=== PATIENT | female | born 1945 | race Caucasian/White ===

== ENCOUNTER → 2018-12-16 08:52 | Outpatient (CLI) | payer MEDICARE, SELFPAY ==
--- NOTE | 2018-12-16 08:57 | CA_ITS ---
APPROVED REPORT EXAM: Comprehensive 2D, Doppler, and color-flow Echocardiogram Geospatial Developer: Monica Sandoval RDCS Ht: 5 ft 3 in Wt: 161lbs BSA: 1.76 BP: 110/80 mmHg Indications: Congestive Heart Failure, COPD, Murmur, Shortness of Breath, Dyspnea, Hypertension/HDD 2D Dimensions LVOT 1.70 cm (M/F) 1.5-2.5 M-Mode Dimensions RVDd 2.30 cm (0.9-2.6) LA Diam 4.00 cm (1.9-4.0) LVDd 5.60 cm (3.5-5.7) Ao Diam 2.70 cm (2.0-3.7) LVDs 3.80 cm (3.5-5.7) AV Cusp 1.00 cm (1.5-2.6) IVSd 0.80 cm (0.6-1.1) PWd 0.80 cm (0.6-1.1) EF (Teich) 59.70% FS 32.10% EDV (Teich) 154.00 mL ESV (Teich) 62.00 mL LV Diastology E/A Ratio 1.6 MED E' 6.24 (< 7 cm/sec) E'/MED E' Ratio 17.00 (>14) LAT E' 5.95 (<10 cm/sec) E/LAT E' Ratio 17.80 (>14) Aortic Valve LVOT Max 128.00 (70-110 cm/s) LVOT VTI 33.50 cm AoV Peak Aayush. 332.00 (50-130 cm/s) AO Peak GR. 44.00 mmHg AO Mean GR. 24.00 (<5 mmHg) AO VTI 84.50 (18-25 cm) ROXI (VTI) 0.90 (2.5-4.5 cm2) Mitral Valve MV E Max Aayush. 106.00 (40-130 cm/s) MV A Velocity 67.60 (40-130 cm/s) E/A Ratio 1.60 Tricuspid Valve TR P. Velocity 299.00 cm/s RAP Estimate 10.00 mmHg RVSP 46.00 mmHg Left Ventricle Left atrium is mildly enlarged, left ventricle is normal size, mild concentric left ventricular hypertrophy, visually estimated ejection fraction 55% with no regional wall motion abnormality, grade 2 diastolic dysfunction seen with tissue Doppler evidence of raise left atrial pressure. Right Ventricle Right atrium and right ventricular mildly enlarged with normal contractility. Aortic Valve The aortic valve is thickened and calcified with severe restriction to leaflet mobility, mean gradient across aortic valve is 24 mmHg, calculated valve area is 0.8 cm??? represents severe aortic stenosis, there is no aortic insufficiency. Mitral Valve Mitral valve has mitral annular calcification, which extends in both anterior and posterior mitral leaflet, there is no mitral stenosis, there is mild mitral regurgitation. Tricuspid Valve Tricuspid valve is grossly normal, there is mild tricuspid regurgitation, calculated right ventricular systolic pressure is 57 mmHg consistent with moderate pulmonary hypertension. Pulmonic Valve Pulmonic valve is poorly visualized. Great Vessels Aortic root is normal size. Pericardium No significant pericardial effusion noted. Conclusion 1. Enlarged left atrium, normal left ventricular size, mild concentric left ventricular hypertrophy, visually estimated ejection fraction 55% with no regional wall motion abnormality. Grade 2 diastolic dysfunction seen with tissue Doppler evidence of raise left atrial pressure. 2. Mildly enlarged right ventricle with normal contractility. 3. Thickened and calcified aortic valve with severe restriction to leaflet mobility, mean gradient across aortic valve is 24 mmHg, however the valve area is 0.8 cm??? represents severe aortic stenosis. There is no aortic insufficiency. 4. Mild mitral and tricuspid regurgitation, calculated right ventricular systolic pressure is 57 mmHg consistent with moderately elevated right ventricular systolic pressure. 5. No significant pericardial effusion noted, inferior vena cava is not well-visualized. Electronically signed by : Terrance Orellana, 12/17/2018 06:28:42
== END ==
PROVIDERS: PCP Family Medicine; Visit Provider Family Medicine
DX: I38 Endocarditis, valve unspecified (principal)
CPT/HCPCS: 93306

== ENCOUNTER → 2019-01-13 12:50 | Outpatient (CLI) | payer MEDICARE, SELFPAY ==
--- NOTE | 2019-01-13 12:52 | CA_ITS ---
APPROVED REPORT Foam Fabricator: CT Laterality: Bilateral Study Quality: Fair Indications: michele stenosis Doppler Spectral Velocity Analysis ECA (R) 192.70/14.00 cm/s ECA (L) 102.70/7.70 cm/s dICA (R) 78.60/21.70 cm/s dICA (L) 105.30/28.30 cm/s Cyndi (R) 143.10/25.70 cm/s Cyndi (L) 79.10/15.00 cm/s pICA (R) 78.30/19.70 cm/s pICA (L) 80.30/14.10 cm/s dCCA (R) 58.20/9.00 cm/s dCCA (L) 69.50/14.40 cm/s pCCA (R) 65.80/13.40 cm/s pCCA (L) 75.40/12.80 cm/s Vert (R) 55.50/9.60 cm/s Vert (L) 35.90/35.90 cm/s Findings Duplex evaluation demonstrates stenosis of the right proximal internal carotid artery in the range of 50-69% with PSV =140 cm/sec, EDV <100 cm/sec, and IC/CC Ratio <4.0. Duplex evaluation demonstrates stenosis of the left proximal internal carotid artery in the range of 20-49% with PSV <140 cm/sec, EDV <100 cm/sec, and IC/CC Ratio <4.0. Duplex evaluation demonstrates antegrade flow of the bilateral Vertebral Arteries. Due to heavy acoustic shadowing, higher percent stenosis cannot be ruled out. Suggests further testing. Conclusion Duplex evaluation demonstrates stenosis of the right proximal internal carotid artery in the range of 50-69% with PSV =140 cm/sec, EDV <100 cm/sec, and IC/CC Ratio <4.0. Duplex evaluation demonstrates stenosis of the left proximal internal carotid artery in the range of 20-49% with PSV <140 cm/sec, EDV <100 cm/sec, and IC/CC Ratio <4.0. Duplex evaluation demonstrates antegrade flow of the bilateral Vertebral Arteries. Due to heavy acoustic shadowing, higher percent stenosis cannot be ruled out. Consider CTA for further evaluation Electronically signed by : Dmitry Martinez MD 01/13/2019 18:47:17
== END ==
PROVIDERS: PCP Family Medicine; Visit Provider Family Medicine
DX: I65.23 Occlusion and stenosis of bilateral carotid arteries (principal)
CPT/HCPCS: 93880

== ENCOUNTER → 2019-05-01 10:10 | Outpatient (CLI) | payer MEDICARE, SELFPAY ==
[2019-05-01 10:49] LABS: Basophils # 0.1 K/mm3 (0-0.2); Basophils % 0.7 % (0.1-2.0); Eosinophils # 0.2 K/mm3 (0.0-0.4); Eosinophils % 2.9 % (0.1-12.0); Hematocrit 30.9 % (37.0-47.0); Lymphocytes # 1.5 K/mm3 (0.7-4.5); Lymphocytes % 18.9 % (10-50); Mean Corpuscular Hemoglobin 25.3 pg (27.0-31.2); Mean Corpuscular Volume 87.2 fl (81-99); Monocytes # 0.5 K/mm3 (0.1-1.0); Monocytes % 5.9 % (1.7-9.3); Neutrophils # 5.5 K/mm3 (1.8-7.8); Neutrophils % 71.7 % (37.0-80.0); Platelet Count 219 K/mm3 (142-424); Red Blood Count 3.55 M/mm3 (4.20-5.40); Red Cell Distribution Width 16.9 % (11.5-17.5); White Blood Count 7.7 K/mm3 (4.8-10.8)
[2019-05-01 11:34] LABS: Chloride 103 mmol/L (98-107); Sodium 140 mmol/L (136-145)
[2019-05-01 11:37] LABS: Blood Urea Nitrogen 16 mg/dl (7-17)
[2019-05-01 11:38] LABS: Calcium 9.2 mg/dl (8.4-10.2); Carbon Dioxide 30 mmol/L (22.0-30.0); Estimated Glomerular Filt Rate 37 ml/min (>60); GFR (African American) 44 ML/MIN (>60); Glucose 90 mg/dl (74-100)
[2019-05-01 13:08] LABS: NT Pro Brain Natriuretic Pep. 924 pg/mL (0-450)
== END ==
PROVIDERS: Visit Provider Internal Medicine Cardiovascular Disease
DX: R06.00 Dyspnea, unspecified (principal); I35.0 Nonrheumatic aortic (valve) stenosis; E78.5 Hyperlipidemia, unspecified; I27.20 Pulmonary hypertension, unspecified; I65.29 Occlusion and stenosis of unspecified carotid artery; R60.0 Localized edema
CPT/HCPCS: 36415; 80048; 83880; 85025

== ENCOUNTER 2019-05-29 10:57 | Inpatient (IN) ==
[2019-05-29 12:04] LABS: Anion Gap 14.8 mEq/L (5-15); Blood Urea Nitrogen 59 mg/dl (7-17); Calcium 10.2 mg/dl (8.4-10.2); Carbon Dioxide 21 mmol/L (22.0-30.0); Chloride 105 mmol/L (98-107); Glucose 107 mg/dl (74-100); Sodium 135 mmol/L (136-145)
[2019-05-29 12:08] LABS: Basophils # 0.1 K/mm3 (0-0.2); Basophils % 0.6 % (0.1-2.0); Eosinophils # 0.2 K/mm3 (0.0-0.4); Eosinophils % 1.9 % (0.1-12.0); Hematocrit 30.2 % (37.0-47.0); Hemoglobin 9.1 g/dL (12.2-16.2); Lymphocytes # 1.6 K/mm3 (0.7-4.5); Lymphocytes % 16.3 % (10-50); Mean Corpuscular HGB Conc 30.2 g/dL (31.8-35.4); Mean Corpuscular Volume 84.4 fl (81-99); Mean Platelet Volume 9.6 fl (7.4-10.4); Monocytes # 0.6 K/mm3 (0.1-1.0); Monocytes % 5.7 % (1.7-9.3); Neutrophils # 7.3 K/mm3 (1.8-7.8); Neutrophils % 75.6 % (37.0-80.0); Platelet Count 306 K/mm3 (142-424); Red Blood Count 3.58 M/mm3 (4.20-5.40); Red Cell Distribution Width 15.4 % (11.5-17.5); White Blood Count 9.7 K/mm3 (4.8-10.8)
--- NOTE | 2019-05-29 14:26 | History & Physical Report ---
*Admission Date: 05/29/19 <Shellie Whiting 05/29/19 14:47> *Chief complaint: weakness, hallucinations <Shellie Whiting 05/29/19 14:47> *History of present illness: Ms. Bedoya is a 74-year-old female with a history of CHF, pulmonary hypertension, aortic stenosis, hypertension, COPD, chronic kidney disease, hyperlipidemia, seizures, and anemia. She presented to the office of [facility] today with complaints of feeling weak and fatigued. Her family stated she had been having hallucinations at home and they were worried about her. She has been seen recently by the hair worker and was started on spironolactone along with her Lasix for heart failure. She had labs done today and was instructed to see her PCP. Her blood pressure was normal in the office and her oxygen was 95% on 3 L of oxygen. Lab work revealed a BUN of 59 and a creatinine of 3. Her BNP was elevated at 992. Her sodium was low and her potassium was elevated. She was admitted for acute kidney injury and dehydration. She will have an infection work-up. <Shellie Whiting 05/29/19 14:47> [facility] History I have reviewed the patient's past medical history: Yes <Shellie Whiting 05/29/19 14:47> Medical History: Reports:: Cancer, Carotid Stenosis, Congestive Heart Failure (with pulmonary hypertension), Chronic Obstructive Pulmonary Disease (COPD), Depression, Heart Murmur (aortic stenosis), Home Oxygen, Hyperlipidemia, Hypertension, Pulmonary Embolism ( last occurrence 1999.), Renal Disease, Seizures <Shellie Whiting 05/29/19 14:47> *Have you ever received a pneumonia vaccine?: No <Shellie Whiting 05/29/19 14:47> *Have you received a flu vaccine this season?: No <Shellie Whiting 05/29/19 14:47> Other Medical History: Reports: Anemia, Arthritis, Hypothyroidism, Thyroid Disease <Shellie Whiting 05/29/19 14:47> Laterality Cases: Bilateral: Mastectomy <Shellie Whiting 05/29/19 14:47> Other Surgeries: Yes: Cancer Surgery <Shellie Whiting 05/29/19 14:47> - *Social History Smoking Status: Former smoker <Shellie Whiting - 05/29/19 14:47> #Yrs smoked (if former smoker): 45 <Shellie Whiting 05/29/19 14:47> [facility] Intake: never [facility] 14:47> Substance Use Type: denies use <[facility] 05/29/19 14:47> *Occupational Status:: other <Shellie Whiting 05/29/19 14:47> Household Members: none <[facility] 05/[facility] 14:47> *Travel in the last 8 weeks: None <Shellie Whiting 05/29/19 14:47> Family Hx:: Cancer, Coronary Artery Disease, Diabetes, Heart Attack <[facility] 05/[facility] 14:47> Review of Systems - Constitutional Reports fatigue, Reports lack of energy, Reports weakness, Denies chills, Denies fever(s) <IssaveroShellie - 05/29/19 14:47> - Eyes Denies blurry vision, Denies double vision [facility] 14[facility]47> - ENT Reports sore throat, Denies nasal congestion [facility] 14:47> - *Cardiovascular Reports shortness of breath, Denies chest pain [facility] 14:47> - *Respiratory Reports shortness of breath, Denies cough [facility]47[facility] - *Gastrointestinal Reports loose stools, Denies abdominal pain, Denies nausea, Denies vomiting <JohanneShellie - 05/29/19 14:47> - *Genitourinary Denies difficulty urinating, Denies painful urination [facility] 14:47> - *Musculoskeletal Denies joint pain [facility] 14:47> - *Neurologic Reports confusion, Reports weakness <[facility] 14:47> Meds Home Medications Medication Instructions Recorded Confirmed Type Clopidogrel Bisulfate [Plavix 75mg 75 mg PO DAILY 01/20/19 05/29/19 History Tab] Doxazosin Mesylate [Cardura 4mg 4 mg PO DAILY 01/20/19 05/29/19 History tablet] buPROPion HCL [Bupropion Xl] 300 mg PO DAILY 01/20/19 05/29/19 History lisinopriL [Lisinopril 40mg Tablet] 40 mg PO DAILY 01/20/19 05/29/19 History ferrous sulfate 325 mg (65 mg 325 mg PO DAILY 04/24/19 05/29/19 History iron) tablet gabapentin 100 mg capsule 100 mg PO TID cap 04/24/19 05/29/19 History levothyroxine 88 mcg tablet 88 mcg PO DAILY 04/24/19 05/29/19 History mecobalamin (vitamin B12) 1,000 1 mcg PO DAILY 04/24/19 05/29/19 History mcg chewable tablet methocarbamol 750 mg tablet 750 mg PO QID 04/24/19 05/29/19 History metoprolol succinate 100 mg 100 mg PO DAILY 04/24/19 05/29/19 History tablet,extended release 24 hr sertraline 100 mg tablet 100 mg PO DAILY 04/24/19 05/29/19 History aspirin 81 mg tablet,delayed 81 mg PO DAILY 05/01/19 05/29/19 History release Ostomy Software Developer Intern [Enema Bag with 1 each [facility] WEEKLY #4 bag 05/11/19 05/29/19 Rx Catheter] Psyllium Husk/Aspartame [Metamucil 10 gm PO DAILY #14 powd.pack 05/11/19 Rx Fiber Singles Packet] polyethylene glycoL 3350 [Miralax 17 gm PO DAILYP PRN #14 packet 05/11/19 05/29/19 Rx 17gm Packet] <Xavier Abbott - 05/29/19 15:18> Allergies Allergy/AdvReac Type Severity Reaction Status Date / Time No Known Allergies Allergy Verified 05/29/19 11:30 <Xavier Abbott - 05/29/19 15:18> Exam Vital signs and Labs for Last 24 Hours: Laboratory Results - last 24 hr 05/29/19 11:00: Sodium 135 L, Potassium 5.8 H, Chloride 105, Carbon Dioxide 21 L , Anion Gap 14.8, BUN 59 H, Creatinine 3.00 H, Estimated GFR 15 L*, Est GFR ( Amer) 18 L*, Glucose 107 H, Calcium 10.2, NT-Pro-B Natriuret Pep 992 H 05/29/19 11:02: WBC 9.7, RBC 3.58 L, Hgb 9.1 L, Hct 30.2 L, MCV 84.4, MCH 25.5 L , MCHC 30.2 L, RDW 15.4, Plt Count 306, MPV 9.6, Neut % (Auto) 75.6, Lymph % (Auto) 16.3, [place] % (Auto) 5.7, Eos % (Auto) 1.9, Baso % (Auto) 0.6, Neut # (Auto) 7.3, Lymph # (Auto) 1.6, [place] # (Auto) 0.6, Eos # (Auto) 0.2, Baso # (Auto) 0.1 05/29/19 11:02: TSH 3.02 <Xavier Abbott - 05/29/19 15:18> Laboratory Results - last 24 hr 05/29/19 11:00: Sodium 135 L, Potassium 5.8 H, Chloride 105, Carbon Dioxide 21 L , Anion Gap 14.8, BUN 59 H, Creatinine 3.00 H, Estimated GFR 15 L*, Est GFR ( Amer) 18 L*, Glucose 107 H, Calcium 10.2, NT-Pro-B Natriuret Pep 992 H 05/29/19 11:02: WBC 9.7, RBC 3.58 L, Hgb 9.1 L, Hct 30.2 L, MCV 84.4, MCH 25.5 L , MCHC 30.2 L, RDW 15.4, Plt Count 306, MPV 9.6, Neut % (Auto) 75.6, Lymph % (Auto) 16.3, [place] % (Auto) 5.7, Eos % (Auto) 1.9, Baso % (Auto) 0.6, Neut # (Auto) 7.3, Lymph # (Auto) 1.6, [place] # (Auto) 0.6, Eos # (Auto) 0.2, Baso # (Auto) 0.1 05/29/19 11:02: TSH 3.02 <Shellie Whiting - 05/29/19 14:47> I & O for Last 24 hours: Intake & Output 03/1605/27/19 05/28/19 05/29/19 23:59 23:59 23:59 23:59 Weight 161 lb 5 oz <Xavier Abbott 05/29/19 15:18> - Constitutional no acute distress (mildly confused) <Shellie Whiting 05/29/19 14:47> - *Routine HEENT Exam Head: Present: normocephalic <Shellie Whiting 05/29/19 14:47> Eye: Present: EOMI, PERRL <Shellie Whiting 05/29/19 14:47> ENT: Present: mucous membranes dry <Shellie Whiting 05/29/19 14:47> - *Routine Neck Exam Present: supple. Absent: lymphadenopathy <Shellie Whiting 05/29/19 14:47> - *Routine Respiratory Exam Present: decreased breath sounds, CTA bilaterally <Shellie Whiting 05/29/19 14:47> - *Routine Cardiovascular Exam Present: RRR, murmur <Shellie Whiting 05/29/19 14:47> - *Routine Abdominal Exam Present: soft, normoactive bowel sounds. Absent: tenderness <Shellie Whiting 05/29/19 14:47> - *Routine Extremities Exam Absent: cyanosis, clubbing, edema <Shellie Whiting 05/29/19 14:47> - *Routine Skin Exam Present: warm. Absent: rash <Shellie Whiting 05/29/19 14:47> - *Routine Neurological Exam Present: alert, oriented X3 <Shellie Whiting 05/29/19 14:47> Assessment and Plan (1) Acute kidney injury Current visit: Yes Status: Acute Category: Medical Code(s): N17.9 - Acute kidney failure, unspecified (2) Dehydration Current visit: Yes Status: Acute Category: Medical Code(s): E86.0 - Dehydration (3) Hallucinations Current visit: Yes Status: Acute Category: Medical Code(s): R44.3 - Hallucinations, unspecified (4) Aortic stenosis Current visit: Yes Status: Chronic Category: Medical Code(s): I35.0 - Nonrheumatic aortic (valve) stenosis (5) Chronic renal impairment Current visit: Yes Status: Chronic Category: Medical Code(s): N18.9 - Chronic kidney disease, unspecified (6) Anemia Current visit: Yes Status: Chronic Category: Medical Code(s): D64.9 - Anemia, unspecified (7) COPD (chronic obstructive pulmonary disease) Current visit: Yes Status: Chronic Category: Medical Code(s): J44.9 - Chronic obstructive pulmonary disease, unspecified (8) Diastolic congestive heart failure Current visit: No Status: Chronic Qualifiers: Heart failure chronicity: unspecified Qualified Code(s): I50.30 - Unspecified diastolic (congestive) heart failure Category: Medical Code(s): I50.30 - Unspecified diastolic (congestive) heart failure (9) Former smoker Current visit: No Status: Chronic Category: Social Hx Code(s): Z87.891 - Personal history of nicotine dependence (10) HLD (hyperlipidemia) Current visit: No Status: Chronic Qualifiers: Hyperlipidemia type: mixed hyperlipidemia Qualified Code(s): E78.2 - Mixed hyperlipidemia Category: Medical Code(s): E78.5 - Hyperlipidemia, unspecified (11) HTN (hypertension) Current visit: No Status: Chronic Qualifiers: Hypertension type: essential hypertension Qualified Code(s): I10 - Essential (primary) hypertension Category: Medical Code(s): I10 - Essential (primary) hypertension (12) History of breast cancer Current visit: No Status: Chronic Category: Medical Code(s): Z85.3 - Personal history of malignant neoplasm of breast (13) Hx of thyroid disease Current visit: No Status: Chronic Category: Medical Code(s): Z86.39 - Personal history of other endocrine, nutritional and metabolic disease (14) Pulmonary HTN Current visit: No Status: Chronic Category: Medical Code(s): I27.20 - Pulmonary hypertension, unspecified <Xavier Abbott - 05/29/19 15:18> (1) Acute kidney injury Current visit: Yes Status: Acute Category: Medical Code(s): N17.9 - Acute kidney failure, unspecified (2) Dehydration Current visit: Yes Status: Acute Category: Medical Code(s): E86.0 - Dehydration (3) Hallucinations Current visit: Yes Status: Acute Category: Medical Code(s): R44.3 - Hallucinations, unspecified (4) Aortic stenosis Current visit: Yes Status: Chronic Category: Medical Code(s): I35.0 - Nonrheumatic aortic (valve) stenosis (5) Chronic renal impairment Current visit: Yes Status: Chronic Category: Medical Code(s): N18.9 - Chronic kidney disease, unspecified (6) Anemia Current visit: Yes Status: Chronic Category: Medical Code(s): D64.9 - Anemia, unspecified (7) COPD (chronic obstructive pulmonary disease) Current visit: Yes Status: Chronic Category: Medical Code(s): J44.9 - Chronic obstructive pulmonary disease, unspecified (8) Diastolic congestive heart failure Current visit: No Status: Chronic Qualifiers: Heart failure chronicity: unspecified Qualified Code(s): I50.30 - Unspecified diastolic (congestive) heart failure Category: Medical Code(s): I50.30 - Unspecified diastolic (congestive) heart failure (9) Former smoker Current visit: No Status: Chronic Category: Social Hx Code(s): Z87.891 - Personal history of nicotine dependence (10) HLD (hyperlipidemia) Current visit: No Status: Chronic Qualifiers: Hyperlipidemia type: mixed hyperlipidemia Qualified Code(s): E78.2 - Mixed hyperlipidemia Category: Medical Code(s): E78.5 - Hyperlipidemia, unspecified (11) HTN (hypertension) Current visit: No Status: Chronic Qualifiers: Hypertension type: essential hypertension Qualified Code(s): I10 - Essential (primary) hypertension Category: Medical Code(s): I10 - Essential (primary) hypertension (12) History of breast cancer Current visit: No Status: Chronic Category: Medical Code(s): Z85.3 - Personal history of malignant neoplasm of breast (13) Hx of thyroid disease Current visit: No Status: Chronic Category: Medical Code(s): Z86.39 - Personal history of other endocrine, nutritional and metabolic disease (14) Pulmonary HTN Current visit: No Status: Chronic Category: Medical Code(s): I27.20 - Pulmonary hypertension, unspecified <Shellie Whiting - 05/29/19 14:23> - Assessment and plan all Dx Assessment and Plan for all problems:: Saw patient, agree with above note. <Xavier Abbott - 05/29/19 15:18> Will admit and start on IVF's. Will get a CXR, further labs, a U/A, and blood cultures. <Shellie Whiting - 05/29/19 14:47>
[2019-05-29 15:07] LABS: Microscopic, Urine URINE MICROSCOPIC (MICROSCOPIC)
[2019-05-29 15:37] LABS: Appearance,Urine CLEAR (Clear); Bilirubin,Urine Negative (Negative); Blood, Urine 2+ (Negative); Color,Urine YELLOW (Yellow); Glucose,Urine (UA) Negative (Negative); Ketones,Urine Negative (Negative); Leukocyte Esterase,Urine 3+ (Negative); Protein,Urine TRACE (Negative); Specific Gravity, Urine 1.015 (1.005-1.030); Urobilinogen,Urine 0.2 EU/dl (0.2)
--- NOTE | 2019-05-29 15:52 | Pharmacy Consult Notes ---
[facility] Pharmacy VTE Monitoring - Patient Demographics Admission date: 05/29/19 Report Date: 05/29/19 Time: 15:52 Allergies/Adverse Reactions: Patient Allergies No Known Allergies Allergy (Verified 05/29/19 11:30) Height: 1.6 m Weight: 73.17 kg Patient Problems: Current Active Problems Acute kidney injury (Acute) Dehydration (Acute) Aortic stenosis (Chronic) Chronic renal impairment (Chronic) Anemia (Chronic) COPD (chronic obstructive pulmonary disease) (Chronic) Hallucinations (Acute) - VTE Risk Labs: VTE Related Lab Results Hgb 9.1 g/dL (12.2-16.2) L 05/29/19 11:02 Hct 30.2 % (37.0-47.0) L 05/29/19 11:02 Plt Count 306 K/mm3 (142-424) 05/29/19 11:02 BUN 59 mg/dl (7-17) H 05/29/19 11:00 Creatinine 3.00 mg/dl (0.52-1.04) H 05/29/19 11:00 Was VTE Risk Assessment Performed: Yes VTE Score: 11 VTE Risk Level: Moderate Risk - Prophylaxis VTE Prophylaxis Ordered?: Yes Types of VTE Prophylaxis: TEDS Knee High Location of Applied Device: Bilateral Lower Extremeties - VTE Diagnosis Confirmed Treatment or plan recommended: Continue Current Treatment
[2019-05-29 17:47] LABS: Amorphous Sediment,Urine 2+ /lpf; Squamous Epithelial Cell,Urine 20-50 #/hpf (0-5); WBC,Urine TNTC #/hpf (0-3)
[2019-05-30 06:14] LABS: Basophils % 0.4 % (0.1-2.0); Eosinophils # 0.1 K/mm3 (0.0-0.4); Eosinophils % 1.1 % (0.1-12.0); Lymphocytes % 10.1 % (10-50); Mean Corpuscular HGB Conc 29.9 g/dL (31.8-35.4); Mean Corpuscular Volume 84.7 fl (81-99); Mean Platelet Volume 9.2 fl (7.4-10.4); Monocytes # 0.6 K/mm3 (0.1-1.0); Monocytes % 5.5 % (1.7-9.3); Neutrophils # 8.5 K/mm3 (1.8-7.8); Neutrophils % 82.8 % (37.0-80.0); Platelet Count 271 K/mm3 (142-424); Red Blood Count 3.55 M/mm3 (4.20-5.40); Red Cell Distribution Width 15.6 % (11.5-17.5); White Blood Count 10.2 K/mm3 (4.8-10.8)
[2019-05-30 06:51] LABS: Anion Gap 14.5 mEq/L (5-15); Calcium 9.8 mg/dl (8.4-10.2)
--- NOTE | 2019-05-30 08:10 | Progress Note ---
Internal Medicine - PN: Subj *Date: 05/30/19 *Time: 08:07 Interval history: Patient states she feels much better this morning. Her confusion has improved and she denies any pain. She states she slept well last night. She is eating breakfast this morning. Exam Vital signs and Labs for Last 24 Hours: Temp Pulse Resp BP Pulse Ox 98.0 F 76 20 146/59 H 95 05/30/19 07:53 05/30/19 07:53 05/30/19 07:53 05/30/19 07:53 05/30/19 07:53 Laboratory Results - last 24 hr 05/29/19 11:00: Sodium 135 L, Potassium 5.8 H, Chloride 105, Carbon Dioxide 21 L , Anion Gap 14.8, BUN 59 H, Creatinine 3.00 H, Estimated GFR 15 L*, Est GFR ( Amer) 18 L*, Glucose 107 H, Calcium 10.2, NT-Pro-B Natriuret Pep 992 H 05/29/19 11:02: WBC 9.7, RBC 3.58 L, Hgb 9.1 L, Hct 30.2 L, MCV 84.4, MCH 25.5 L , MCHC 30.2 L, RDW 15.4, Plt Count 306, MPV 9.6, Neut % (Auto) 75.6, Lymph % (Auto) 16.3, [place] % (Auto) 5.7, Eos % (Auto) 1.9, Baso % (Auto) 0.6, Neut # (Auto) 7.3, Lymph # (Auto) 1.6, [place] # (Auto) 0.6, Eos # (Auto) 0.2, Baso # (Auto) 0.1 05/29/19 11:02: TSH 3.02 05/29/19 14:46: Urine Color Yellow, Urine Appearance Clear, Urine pH 6.0, Ur Specific [place] 1.015, Urine Protein Trace, Urine Glucose (UA) Negative, Urine Ketones Negative, Urine Blood 2+, Urine Nitrate Negative, Urine Bilirubin Negative, Urine Urobilinogen 0.2, Ur Leukocyte Esterase 3+ A, Urine RBC 10-20, Urine WBC Tntc, Ur Squamous Epith Cells 20-50, Amorphous Sediment 2+, Urine Bacteria None 05/29/19 15:40: Magnesium 2.5 H 05/29/19 15:40: Troponin I < 0.01 05/29/19 15:40: Lactate < 0.5 L 05/30/19 05:39: WBC 10.2, RBC 3.55 L, Hgb 9.0 L, Hct 30.0 L, MCV 84.7, MCH 25.3 L, MCHC 29.9 L, RDW 15.6, Plt Count 271, MPV 9.2, Neut % (Auto) 82.8 H, Lymph % (Auto) 10.1, [place] % (Auto) 5.5, Eos % (Auto) 1.1, Baso % (Auto) 0.4, Neut # (Auto) 8.5 H, Lymph # (Auto) 1.0, [place] # (Auto) 0.6, Eos # (Auto) 0.1, Baso # (Auto) 0.0 05/30/19 05:39: Sodium 140, Potassium 5.5 H, Chloride 109 H, Carbon Dioxide 22, Anion Gap 14.5, BUN 47 H, Creatinine 2.60 H, Estimated Creat Clear 21, Estimated GFR 18 L*, Est GFR ( Amer) 22 L D, Glucose 94, Calcium 9.8 I & O for Last 24 hours: Intake & Output 05/27/19 05/28/19 05/29/19 05/30/19 11:59 11:59 11:59 11:59 Intake Total 1633 / 1633 Output Total 600 / 600 Balance 1033 / 1033 Weight 163 lb 1 oz Microbiology Reports for the Last 24 Hours: Microbiology 05/29/19 14:46 Urine,Clean Catch Urine Culture - Preliminary - Constitutional no acute distress - *Routine Respiratory Exam Present: CTA bilaterally - *Routine Cardiovascular Exam Present: RRR - *Routine Abdominal Exam Present: soft, normoactive bowel sounds. Absent: tenderness - *Routine Extremities Exam Absent: cyanosis, clubbing, edema - *Routine Skin Exam Present: warm. Absent: rash - *Routine Neurological Exam Present: alert, oriented X3 Assessment and Plan (1) Acute renal failure Current visit: Yes Status: Acute Category: Medical Code(s): N17.9 - Acute kidney failure, unspecified (2) Dehydration Current visit: Yes Status: Acute Category: Medical Code(s): E86.0 - D ehydration (3) Hallucinations Current visit: Yes Status: Acute Category: Medical Code(s): R44.3 - Hallucinations, unspecified (4) Aortic stenosis Current visit: Yes Status: Chronic Category: Medical Code(s): I35.0 - Nonrheumatic aortic (valve) stenosis (5) Chronic renal impairment Current visit: Yes Status: Chronic Category: Medical Code(s): N18.9 - Chronic kidney disease, unspecified (6) Anemia Current visit: Yes Status: Chronic Category: Medical Code(s): D64.9 - Anemia, unspecified (7) COPD (chronic obstructive pulmonary disease) Current visit: Yes Status: Chronic Category: Medical Code(s): J44.9 - Chronic obstructive pulmonary disease, unspecified (8) Diastolic congestive heart failure Current visit: No Status: Chronic Qualifiers: Heart failure chronicity: unspecified Qualified Code(s): I50.30 - Unspecified diastolic (congestive) heart failure Category: Medical Code(s): I50.30 - Unspecified diastolic (congestive) heart failure (9) Former smoker Current visit: No Status: Chronic Category: Social Hx Code(s): Z87.891 - Personal history of nicotine dependence (10) HLD (hyperlipidemia) Current visit: No Status: Chronic Qualifiers: Hyperlipidemia type: mixed hyperlipidemia Qualified Code(s): E78.2 - Mixed hyperlipidemia Category: Medical Code(s): E78.5 - Hyperlipidemia, unspecified (11) HTN (hypertension) Current visit: No Status: Chronic Qualifiers: Hypertension type: essential hypertension Qualified Code(s): I10 - Essential (primary) hypertension Category: Medical Code(s): I10 - Essential (primary) hypertension (12) History of breast cancer Current visit: No Status: Chronic Category: Medical Code(s): Z85.3 - Personal history of malignant neoplasm of breast (13) Hx of thyroid disease Current visit: No Status: Chronic Category: Medical Code(s): Z86.39 - Personal history of other endocrine, nutritional and metabolic disease (14) Pulmonary HTN Current visit: No Status: Chronic Category: Medical Code(s): I27.20 - Pul monary hypertension, unspecified - Assessment and plan all Dx Assessment and Plan for all problems:: Patient's potassium has improved slightly as has her renal function. We will continue to slowly rehydrate. Patient has been started on Rocephin for possible UTI. Will await urine culture results. We will continue to hold diuretics at this time due to renal function.
--- NOTE | 2019-05-30 08:36 | Progress Note ---
Subjective Date: 05/30/19 Time: 08:33 Principal diagnosis: Acute renal insufficiency, aortic stenosis Interval history: 74-year-old white female admitted for dehydration, acute renal insufficiency in the setting of severe aortic stenosis. Patient was seen in cardiology office yesterday with complaint of hallucinations, weakness and dizziness. Patient had recently been started on diuretic therapy due to edema in hopes of "tuning up" her hemodynamic status prior to evaluation for aortic stenosis in preparation for aortic valve replacement. Labs were drawn and patient then went to her appointment with Dr. Abbott in which time labs returned revealing severe renal insufficiency. Patient was subsequently admitted for gentle IV fluid administration. She states she is feeling much better this morning she denies any chest pain, pressure or tightness. I discussed the process of evaluating her aortic valve stenosis with right and left heart catheterization and transesophageal echocardiogram which are scheduled for next week. Patient understandably is concerned due to her cardiac issues and is anxious regarding the process and procedure of repair/replacement. Patient's creatinine has slightly improved this morning from 3.0-2.6 and potassium has decreased from 5.8-5.5. Diuretics have been withheld. Exam Vital signs and Labs for Last 24 Hours: Temp Pulse Resp BP Pulse Ox 98.0 F 76 20 146/59 H 95 05/30/19 07:53 05/30/19 07:53 05/30/19 07:53 05/30/19 07:53 05/30/19 07:53 Laboratory Results - last 24 hr 05/29/19 11:00: Sodium 135 L, Potassium 5.8 H, Chloride 105, Carbon Dioxide 21 L , Anion Gap 14.8, BUN 59 H, Creatinine 3.00 H, Estimated GFR 15 L*, Est GFR ( Amer) 18 L*, Glucose 107 H, Calcium 10.2, NT-Pro-B Natriuret Pep 992 H 05/29/19 11:02: WBC 9.7, RBC 3.58 L, Hgb 9.1 L, Hct 30.2 L, MCV 84.4, MCH 25.5 L , MCHC 30.2 L, RDW 15.4, Plt Count 306, MPV 9.6, Neut % (Auto) 75.6, Lymph % (Auto) 16.3, [place] % (Auto) 5.7, Eos % (Auto) 1.9, Baso % (Auto) 0.6, Neut # (Auto) 7.3, Lymph # (Auto) 1.6, [place] # (Auto) 0.6, Eos # (Auto) 0.2, Baso # (Auto) 0.1 05/29/19 11:02: TSH 3.02 05/29/19 14:46: Urine Color Yellow, Urine Appearance Clear, Urine pH 6.0, Ur Specific [place] 1.015, Urine Protein Trace, Urine Glucose (UA) Negative, Urine Ketones Negative, Urine Blood 2+, Urine Nitrate Negative, Urine Bilirubin Negative, Urine Urobilinogen 0.2, Ur Leukocyte Esterase 3+ A, Urine RBC 10-20, Urine WBC Tntc, Ur Squamous Epith Cells 20-50, Amorphous Sediment 2+, Urine Bacteria None 05/29/19 15:40: Magnesium 2.5 H 05/29/19 15:40: Troponin I < 0.01 05/29/19 15:40: Lactate < 0.5 L 05/30/19 05:39: WBC 10.2, RBC 3.55 L, Hgb 9.0 L, Hct 30.0 L, MCV 84.7, MCH 25.3 L, MCHC 29.9 L, RDW 15.6, Plt Count 271, MPV 9.2, Neut % (Auto) 82.8 H, Lymph % (Auto) 10.1, [place] % (Auto) 5.5, Eos % (Auto) 1.1, Baso % (Auto) 0.4, Neut # (Auto) 8.5 H, Lymph # (Auto) 1.0, [place] # (Auto) 0.6, Eos # (Auto) 0.1, Baso # (Auto) 0.0 05/30/19 05:39: Sodium 140, Potassium 5.5 H, Chloride 109 H, Carbon Dioxide 22, Anion Gap 14.5, BUN 47 H, Creatinine 2.60 H, Estimated Creat Clear 21, Estimated GFR 18 L*, Est GFR ( Amer) 22 L D, Glucose 94, Calcium 9.8 I & O for Last 24 hours: Intake & Output 05/27/19 05/28/19 05/29/19 05/30/19 11:59 11:59 11:59 11:59 Intake Total 1633 / 1633 Output Total 600 / 600 Balance 1033 / 1033 Weight 163 lb 1 oz Microbiology Reports for the Last 24 Hours: Microbiology 05/29/19 14:46 Urine,Clean Catch Urine Culture - Preliminary - *Routine HEENT Exam Head: Present: normocephalic Eye: Present: EOMI, PERRL ENT: Present: mucous membranes moist - *Routine Respiratory Exam Present: CTA bilaterally, rales. Absent: accessory muscle use, rhonchi, wheezes Comments: Right base rales posteriorly otherwise clear. - *Routine Cardiovascular Exam Present: RRR, murmur. Absent: gallop, rubs Comments: Harsh grade 2/6 to 3/6 systolic ejection murmur noted at the left upper sternal border radiating towards the neck. - *Routine Extremities Exam Absent: edema, calf tenderness - *Routine Neurological Exam Present: alert, oriented X3, moving all extremities Progress Note: A&P (1) Acute renal failure Status: Acute Current Visit: Yes (2) Dehydration Status: Acute Current Visit: Yes (3) Hallucinations Status: Acute Current Visit: Yes (4) Aortic stenosis Status: Chronic Current Visit: Yes (5) Chronic renal impairment Status: Chronic Current Visit: Yes (6) Anemia Status: Chronic Current Visit: Yes (7) COPD (chronic obstructive pulmonary disease) Status: Chronic Current Visit: Yes (8) Diastolic congestive heart failure Status: Chronic Current Visit: No (9) Former smoker Status: Chronic Current Visit: No (10) HLD (hyperlipidemia) Status: Chronic Current Visit: No (11) HTN (hypertension) Status: Chronic Current Visit: No (12) History of breast cancer Status: Chronic Current Visit: No (13) Hx of thyroid disease Status: Chronic Current Visit: No (14) Pulmonary HTN Status: Chronic Current Visit: No Assessment and Plan for All Diagnoses:: 1. Acute renal insufficiency, gentle hydration in progress. Diuretics have been held. 2. Possible right lower lobe infiltrate on chest x-ray, patient is on antibiotic therapy 3. Severe aortic stenosis, plan work-up next week including right and left heart catheterization and transesophageal echocardiogram once patient's creatinine is below 2. Continue metoprolol and lisinopril as tolerated. If the patient remains in the hospital over the weekend the right and left heart catheterization could be undertaken earlier in the week. Dr. Orellana will return to the hospital next at which time the DENA could be performed. All test could be performed on or Sunday of next week if patient wishes. 4. Patient is on aspirin and Plavix with known carotid artery stenosis that is in the mild and moderate range.
--- NOTE | 2019-05-30 17:42 | Pharmacy Consult Notes ---
- Pharmacy Consult Date: 05/30/19 Time: 17:40 Referring provider: DR. LAINEZ Reason for Consult:: VANCOMYCIN DOSING Allergies and ADEs:: Allergies Allergy/AdvReac Type Severity Reaction Status Date / Time No Known Allergies Allergy Verified 05/29/19 11:30 Home Medications:: Home Medications Medication Instructions Recorded Confirmed Type Clopidogrel Bisulfate [Plavix 75mg 75 mg PO DAILY 01/20/19 05/29/19 History Tab] Doxazosin Mesylate [Cardura 4mg 4 mg PO DAILY 01/20/19 05/29/19 History tablet] lisinopriL [Lisinopril 40mg Tablet] 40 mg PO DAILY 01/20/19 05/29/19 History ferrous sulfate 325 mg (65 mg 325 mg PO BID 04/24/19 05/29/19 History iron) tablet gabapentin 100 mg capsule 200 mg PO DAILY cap 04/24/19 05/29/19 History levothyroxine 88 mcg tablet 88 mcg PO DAILY 04/24/19 05/29/19 History mecobalamin (vitamin B12) 1,000 1,000 mcg PO DAILY 04/24/19 05/29/19 History mcg chewable tablet methocarbamol 750 mg tablet 750 mg PO HS 04/24/19 05/29/19 History metoprolol succinate 100 mg 100 mg PO DAILY 04/24/19 05/29/19 History tablet,extended release 24 hr sertraline 100 mg tablet 150 mg PO DAILY 04/24/19 05/30/19 History aspirin 81 mg tablet,delayed 81 mg PO DAILY 05/01/19 05/29/19 History release Albuterol Sulfate [Albuterol 2.5 mg IH Q6H 05/29/19 05/29/19 History 0.083% 2.5mg/3mL neb] Budesonide 0.5 mg IH BID 05/29/19 05/29/19 History Furosemide [Furosemide 20mg Tab] 20 mg PO DAILYP PRN 05/29/19 05/29/19 History Ipratropium/Albuterol Sulfate 1 puff IH QID 05/29/19 05/29/19 History [Combivent Respimat Inh] Spironolactone 50 mg PO DAILY 05/29/19 05/29/19 History buPROPion HCL [Bupropion Xl] 300 mg PO DAILY 05/29/19 05/29/19 History polyethylene glycoL 3350 [Miralax 17 gm PO DAILY 05/29/19 05/29/19 History 17gm Packet] Height: 1.6 m Weight: 74 kg Laboratory Results:: Laboratory Results - last 24 hr 05/29/19 14:46: Urine RBC 10-20, Urine WBC Tntc, Ur Squamous Epith Cells 20-50, Amorphous Sediment 2+, Urine Bacteria None 05/30/19 05:39: WBC 10.2, RBC 3.55 L, Hgb 9.0 L, Hct 30.0 L, MCV 84.7, MCH 25.3 L, MCHC 29.9 L, RDW 15.6, Plt Count 271, MPV 9.2, Neut % (Auto) 82.8 H, Lymph % (Auto) 10.1, [place] % (Auto) 5.5, Eos % (Auto) 1.1, Baso % (Auto) 0.4, Neut # (Auto) 8.5 H, Lymph # (Auto) 1.0, [place] # (Auto) 0.6, Eos # (Auto) 0.1, Baso # (Auto) 0.0 05/30/19 05:39: Sodium 140, Potassium 5.5 H, Chloride 109 H, Carbon Dioxide 22, Anion Gap 14.5, BUN 47 H, Creatinine 2.60 H, Estimated Creat Clear 21, Estimated GFR 18 L*, Est GFR ( Amer) 22 L D, Glucose 94, Calcium 9.8 Medical History: Reports:: Cancer (breast), Carotid Stenosis, Congestive Heart Failure (with pulmonary hypertension), Chronic Obstructive Pulmonary Disease (COPD), Depression, Heart Murmur, Home Oxygen, Hyperlipidemia, Hypertension, Pulmonary Embolism ( last occurrence 1999.), Renal Disease, Seizures Denies:: Diabetes Mellitus Type 1, Diabetes Mellitus Type 2 Assessment and Plan (1) Acute renal failure Current visit: Yes Status: Acute Category: Medical Code(s): N17.9 - Acute kidney failure, unspecified (2) Dehydration Current visit: Yes Status: Acute Category: Medical Code(s): E86.0 - Dehydration (3) Hallucinations Current visit: Yes Status: Acute Category: Medical Code(s): R44.3 - Hallucinations, unspecified (4) Aortic stenosis Current visit: Yes Status: Chronic Category: Medical Code(s): I35.0 - No nrheumatic aortic (valve) stenosis (5) Chronic renal impairment Current visit: Yes Status: Chronic Category: Medical Code(s): N18.9 - Chronic kidney disease, unspecified (6) Anemia Current visit: Yes Status: Chronic Category: Medical Code(s): D64.9 - Anemia, unspecified (7) COPD (chronic obstructive pulmonary disease) Current visit: Yes Status: Chronic Category: Medical Code(s): J44.9 - Chronic obstructive pulmonary disease, unspecified (8) Diastolic congestive heart failure Current visit: No Status: Chronic Qualifiers: Heart failure chronicity: unspecified Qualified Code(s): I50.30 - Unspecified diastolic (congestive) heart failure Category: Medical Code(s): I50.30 - Unspecified diastolic (congestive) heart failure (9) Former smoker Current visit: No Status: Chronic Category: Social Hx Code(s): Z87.891 - Personal history of nicotine dependence (10) HLD (hyperlipidemia) Current visit: No Status: Chronic Qualifiers: Hyperlipidemia type: mixed hyperlipidemia Qualified Code(s): E78.2 - Mixed hyperlipidemia Category: Medical Code(s): E78.5 - Hyperlipidemia, unspecified (11) HTN (hypertension) Current visit: No Status: Chronic Qualifiers: Hypertension type: essential hypertension Qualified Code(s): I10 - Essential (primary) hypertension Category: Medical Code(s): I10 - Essential (primary) hypertension (12) History of breast cancer Current visit: No Status: Chronic Category: Medical Code(s): Z85.3 - Personal history of malignant neoplasm of breast (13) Hx of thyroid disease Current visit: No Status: Chronic Category: Medical Code(s): Z86.39 - Personal history of other endocrine, nutritional and metabolic disease (14) Pulmonary HTN Current visit: No Status: Chronic Category: Medical Code(s): I27.20 - Pulmonary hypertension, unspecified - Assessment and plan all Dx Assessment and Plan for all problems:: BASED ON PATIENT'S FACTORS, RECOMMEND STARTING WITH VANCOMYCIN 1250 MG Q48H AT THIS TIME. PATIENT'S RENAL FUNCTION IS SLOWLY IMPROVING, SO WILL WATCH AND ADJUST APPROPRIATE.
--- NOTE | 2019-05-31 08:33 | Progress Note ---
Internal Medicine - PN: Subj *Date: 05/31/19 *Time: 08:29 Interval history: Patient states she is feeling better today. She ate a good breakfast and slept well last night. She denies any pain. Exam Vital signs and Labs for Last 24 Hours: Temp Pulse Resp BP Pulse Ox 98.5 F 74 18 141/55 H 96 05/31/19 07:39 05/31/19 07:39 05/31/19 07:39 05/31/19 07:39 05/31/19 07:39 Laboratory Results - last 24 hr 05/29/19 14:46: Urine Color Yellow, Urine Appearance Clear, Urine pH 6.0, Ur Specific [place] 1.015, Urine Protein Trace, Urine Glucose (UA) Negative, Urine Ketones Negative, Urine Blood 2+, Urine Nitrate Negative, Urine Bilirubin Negative, Urine Urobilinogen 0.2, Ur Leukocyte Esterase 3+ A, Urine RBC 10-20, Urine WBC Tntc, Ur Squamous Epith Cells 20-50, Amorphous Sediment 2+, Urine Bacteria None 05/29/19 15:40: Lactate < 0.5 L I & O for Last 24 hours: Intake & Output 05/28/19 05/29/19 05/30/19 05/31/19 11:59 11:59 11:59 11:59 Intake Total 1633 / 1633 2172 / 2172 Output Total 600 / 600 1100 / 1100 Balance 1033 / 1033 1072 / 1072 Weight 163 lb 1 oz 158 lb 12.8 oz Microbiology Reports for the Last 24 Hours: Microbiology 05/29/19 14:46 Urine,Clean Catch Urine Culture - Preliminary Gram Positive Cocci 05/29/19 15:40 Blood Blood Culture - Preliminary Gram Positive Cocci - Constitutional no acute distress - *Routine Respiratory Exam Present: CTA bilaterally - *Routine Cardiovascular Exam Present: RRR - *Routine Abdominal Exam Present: soft, normoactive bowel sounds. Absent: tenderness - *Routine Extremities Exam Absent: cyanosis, clubbing, edema - *Routine Skin Exam Present: warm. Absent: rash - *Routine Neurological Exam Present: alert, oriented X3 Assessment and Plan (1) Acute renal failure Current visit: Yes Status: Acute Category: Medical Code(s): N17.9 - Acute kidney failure, unspecified (2) Dehydration Current visit: Yes Status: Acute Category: Medical Code(s): E86.0 - Dehydration (3) Hallucinations Current visit: Yes Status: Acute Category: Medical Code(s): R44.3 - Hallucinations, unspecified (4) Aortic stenosis Current visit: Yes Status: Chronic Category: Medical Code(s): I35.0 - Nonrheumatic aortic (valve) stenosis (5) Chronic renal impairment Current visit: Yes Status: Chronic Category: Medical Code(s): N18.9 - Chronic kidney disease, unspecified (6) Anemia Current visit: Yes Status: Chronic Category: Medical Code(s): D64.9 - Anemia, unspecified (7) COPD (chronic obstructive pulmonary disease) Current visit: Yes Status: Chronic Category: Medical Code(s): J44.9 - Chronic obstructive pulmonary disease, unspecified (8) Diastolic congestive heart failure Current visit: No Status: Chronic Qualifiers: Heart failure chronicity: unspecified Qualified Code(s): I50.30 - Unspecified diastolic (congestive) heart failure Category: Medical Code(s): I50.30 - Unspecified diastolic (congestive) heart failure (9) Former smoker Current visit: No Status: Chronic Category: Social Hx Code(s): Z87.891 - Personal history of nicotine dependence (10) HLD (hyperlipidemia) Current visit: No Status: Chronic Qualifiers: Hyperlipidemia type: mixed hyperlipidemia Qualified Code(s): E78.2 - Mixed hyperlipidemia Category: Medical Code(s): E78.5 - Hyperlipidemia, unspecified (11) HTN (hypertension) Current visit: No Status: Chronic Qualifiers: Hypertension type: essential hypertension Qualified Code(s): I10 - Essential (primary) hypertension Category: Medical Code(s): I10 - Essential (primary) hypertension (12) History of breast cancer Current visit: No Status: Chronic Category: Medical Code(s): Z85.3 - Personal history of malignant neoplasm of breast (13) Hx of thyroid disease Current visit: No Status: Chronic Category: Medical Code(s): Z86.39 - Personal history of other endocrine, nutritional and metabolic disease (14) Pulmonary HTN Current visit: No Status: Chronic Category: Medical Code(s): I27.20 - Pulmonary hypertension, unspecified - Assessment and plan all Dx Assessment and Plan for all problems:: We will recheck labs this morning and await urine culture results as they appear to be growing Streptococcus.
[2019-05-31 12:27] LABS: Basophils % 0.5 % (0.1-2.0); Eosinophils # 0.1 K/mm3 (0.0-0.4); Eosinophils % 1.9 % (0.1-12.0); Hematocrit 27.8 % (37.0-47.0); Hemoglobin 8.3 g/dL (12.2-16.2); Lymphocytes # 1.5 K/mm3 (0.7-4.5); Mean Corpuscular HGB Conc 29.7 g/dL (31.8-35.4); Mean Corpuscular Volume 85.2 fl (81-99); Mean Platelet Volume 8.3 fl (7.4-10.4); Monocytes # 0.4 K/mm3 (0.1-1.0); Monocytes % 5.8 % (1.7-9.3); Neutrophils # 4.8 K/mm3 (1.8-7.8); Neutrophils % 69.8 % (37.0-80.0); Platelet Count 250 K/mm3 (142-424); Red Blood Count 3.26 M/mm3 (4.20-5.40); Red Cell Distribution Width 15.8 % (11.5-17.5); White Blood Count 6.8 K/mm3 (4.8-10.8)
[2019-05-31 12:40] LABS: Albumin Level 3.4 g/dl (3.5-5.0); Albumin/Globulin Ratio 1.1 (1.1-1.8); Bilirubin,Total 0.2 mg/dl (0.2-1.3); Calcium 9.5 mg/dl (8.4-10.2); Globulin 3.1 g/dL (1.3-3.2); Total Protein,Serum 6.5 g/dl (6.3-8.2)
--- NOTE | 2019-06-01 11:13 | Progress Note ---
Internal Medicine - PN: Subj *Date: 06/01/19 *Time: 11:09 Exam Vital signs and Labs for Last 24 Hours: Temp Pulse Resp BP Pulse Ox 97.9 F 75 18 143/59 H 95 06/01/19 07:45 06/01/19 07:45 06/01/19 07:45 06/01/19 07:45 06/01/19 07:45 Laboratory Results - last 24 hr 05/31/19 12:10: WBC 6.8 D, RBC 3.26 L, Hgb 8.3 L, Hct 27.8 L, MCV 85.2, MCH 25.4 L, MCHC 29.7 L, RDW 15.8, Plt Count 250, MPV 8.3, Neut % (Auto) 69.8, Lymph % (Auto) 22.0, [place] % (Auto) 5.8, Eos % (Auto) 1.9, Baso % (Auto) 0.5, Neut # (Auto) 4.8, Lymph # (Auto) 1.5, [place] # (Auto) 0.4, Eos # (Auto) 0.1, Baso # (Auto) 0.0 05/31/19 12:10: Sodium 141, Potassium 5.0, Chloride 111 H, Carbon Dioxide 22, Anion Gap 13.0, BUN 29 H D, Creatinine 1.90 H D, Estimated Creat Clear 29, Estimated GFR 26 L, Est GFR ( Amer) 31 L D, Glucose 112 H, Calcium 9.5, Total Bilirubin 0.2, AST 16, ALT 7 L, Alkaline Phosphatase 54, Total Protein 6.5, Albumin 3.4 L, Globulin 3.1, Albumin/Globulin Ratio 1.1 I & O for Last 24 hours: Intake & Output 05/29/19 05/30/19 05/31/19 06/01/19 23:59 23:59 23:59 23:59 Intake Total 730 / 730 1982 / 1982 2556 / 2796 480 / 480 Output Total 200 / 300 1100 / 1100 1000 / 1000 Balance 530 / 430 883 / 883 1556 / 1796 480 / 480 Weight 73.17 kg 74 kg 72.03 kg 73.964 kg Microbiology Reports for the Last 24 Hours: Microbiology 05/29/19 14:46 Urine,Clean Catch Urine Culture - Final Aerococcus urinae 05/29/19 15:40 Blood Blood Culture - Preliminary Streptococcus sanguinis 05/29/19 15:40 Blood Blood Culture - Preliminary NO GROWTH AFTER 48 HOURS Assessment and Plan (1) Acute renal failure Current visit: Yes Status: Acute Category: Medical Code(s): N17.9 - Acute kidney failure, unspecified (2) Dehydration Current visit: Yes Status: Acute Category: Medical Code(s): E86.0 - Dehydration (3) Hallucinations Current visit: Yes Status: Acute Category: Medical Code(s): R44.3 - Hallucinations, unspecified (4) Aortic stenosis Current visit: Yes Status: Chronic Category: Medical Code(s): I35.0 - Nonrheumatic aortic (valve) stenosis (5) Chronic renal impairment Current visit: Yes Status: Chronic Category: Medical Code(s): N18.9 - Chronic kidney disease, unspecified (6) Anemia Current visit: Yes Status: Chronic Category: Medical Code(s): D64.9 - Anemia, unspecified (7) COPD (chronic obstructive pulmonary disease) Current visit: Yes Status: Chronic Category: Medical Code(s): J44.9 - Chronic obstructive pulmonary disease, unspecified (8) Diastolic congestive heart failure Current visit: No Status: Chronic Qualifiers: Heart failure chronicity: unspecified Qualified Code(s): I50.30 - Unspecified diastolic (congestive) heart failure Category: Medical Code(s): I50.30 - Unspecified diastolic (congestive) heart failure (9) Former smoker Current visit: No Status: Chronic Category: Social Hx Code(s): Z87.891 - Personal history of nicotine dependence (10) HLD (hyperlipidemia) Current visit: No Status: Chronic Qualifiers: Hyperlipidemia type: mixed hyperlipidemia Qualified Code(s): E78.2 - Mixed hyperlipidemia Category: Medical Code(s): E78.5 - Hyperlipidemia, unspecified (11) HTN (hypertension) Current visit: No Status: Chronic Qualifiers: Hypertension type: essential hypertension Qualified Code(s): I10 - Essential (primary) hypertension Category: Medical Code(s): I10 - Essential (primary) hypertension (12) History of breast cancer Current visit: No Status: Chronic Category: Medical Code(s): Z85.3 - Personal history of malignant neoplasm of breast (13) Hx of thyroid disease Current visit: No Status: Chronic Category: Medical Code(s): Z86.39 - Personal history of other endocrine, nutritional and metabolic disease (14) Pulmonary HTN Current visit: No Status: Chronic Category: Medical Code(s): I27.20 - Pulmonary hypertension, unspecified The patient's infection will respond to the chosen ABx?: Yes Is the patient receiving the right drug, dose, and route?: Yes Could a more targeted ABx be ordered?: No (CULTURE SENSITIVE)
--- NOTE | 2019-06-01 12:36 | Progress Note ---
Internal Medicine - PN: Subj *Date: 06/01/19 *Time: 12:32 Interval history: She states that she does not feel all that well. She requests that we resume nebulizers. She notes that she is on a lower dose of her blood pressure medicines. Her blood pressures have come up during hospitalization. She was on 100 mg of sustained-release metoprolol at home and a higher dose of lisinopril. I will increase the metoprolol to twice daily. She will be given an additional 10 mg of lisinopril now. Duo nebs are ordered. Exam Vital signs and Labs for Last 24 Hours: Temp Pulse Resp BP Pulse Ox 97.9 F 75 18 143/59 H 95 06/01/19 07:45 06/01/19 07:45 06/01/19 07:45 06/01/19 07:45 06/01/19 07:45 Laboratory Results - last 24 hr 05/31/19 12:10: Sodium 141, Potassium 5.0, Chloride 111 H, Carbon Dioxide 22, Anion Gap 13.0, BUN 29 H D, Creatinine 1.90 H D, Estimated Creat Clear 29, Estimated GFR 26 L, Est GFR ( Amer) 31 L D, Glucose 112 H, Calcium 9.5, Total Bilirubin 0.2, AST 16, ALT 7 L, Alkaline Phosphatase 54, Total Protein 6.5, Albumin 3.4 L, Globulin 3.1, Albumin/Globulin Ratio 1.1 Laboratory Tests 05/29/19 05/29/19 05/30/19 11:00 11:02 05:39 WBC 9.7 10.2 Hgb 9.1 L 9.0 L Potassium 5.8 H 05/30/19 05/31/19 05/31/19 05:39 12:10 12:10 WBC 6.8 D Hgb 8.3 L Potassium 5.5 H 5.0 I & O for Last 24 hours: Intake & Output 05/30/19 05/31/19 06/01/19 06/02/19 11:59 11:59 11:59 11:59 Intake Total 1633 / 1633 2652 / 2652 1464 / 1464 Output Total 600 / 600 1300 / 1300 400 / 400 Balance 1033 / 1033 1352 / 1352 1064 / 1064 Weight 163 lb 1 oz 158 lb 12.8 oz 163 lb 1 oz Microbiology Reports for the Last 24 Hours: Microbiology 05/29/19 14:46 Urine,Clean Catch Urine Culture - Final Aerococcus urinae 05/29/19 15:40 Blood Blood Culture - Preliminary Streptococcus sanguinis 05/29/19 15:40 Blood Blood Culture - Preliminary NO GROWTH AFTER 48 HOURS - Constitutional no acute distress - *Routine HEENT Exam ENT: Present: mucous membranes moist - *Routine Respiratory Exam Present: decreased breath sounds, CTA bilaterally - *Routine Cardiovascular Exam Present: RRR, murmur (Aortic systolic high-pitched) - *Routine Extremities Exam Present: edema (Trace) Assessment and Plan (1) Aortic stenosis Current visit: Yes Status: Chronic Category: Medical Code(s): I35.0 - Nonrheumatic aortic (valve) stenosis (2) Acute renal failure Current visit: Yes Status: Acute Category: Medical Code(s): N17.9 - Acute kidney failure, unspecified (3) Dehydration Current visit: Yes Status: Acute Category: Medical Code(s): E86.0 - Dehydration (4) Hallucinations Current visit: Yes Status: Acute Category: Medical Code(s): R44.3 - Hallucinations, unspecified (5) Chronic renal impairment Current visit: Yes Status: Chronic Category: Medical Code(s): N18.9 - Chronic kidney disease, unspecified (6) Anemia Current visit: Yes Status: Chronic Category: Medical Code(s): D64.9 - Anemia, unspecified (7) COPD (chronic obstructive pulmonary disease) Current visit: Yes Status: Chronic Category: Medical Code(s): J44.9 - Chronic obstructive pulmonary disease, unspecified (8) Diastolic congestive heart failure Current visit: No Status: Chronic Qualifiers: Heart failure chronicity: unspecified Qualified Code(s): I50.30 - Unspecified diastolic (congestive) heart failure Category: Medical Code(s): I50.30 - Unspecified diastolic (congestive) heart failure (9) Former smoker Current visit: No Status: Chronic Category: Social Hx Code(s): Z87.891 - Personal history of nicotine dependence (10) HLD (hyperlipidemia) Current visit: No Status: Chronic Qualifiers: Hyperlipidemia type: mixed hyperlipidemia Qualified Code(s): E78.2 - Mixed hyperlipidemia Category: Medical Code(s): E78.5 - Hyperlipidemia, unspecified (11) HTN (hypertension) Current visit: No Status: Chronic Qualifiers: Hypertension type: essential hypertension Qualified Code(s): I10 - Essential (primary) hypertension Category: Medical Code(s): I10 - Essential (primary) hypertension (12) History of breast cancer Current visit: No Status: Chronic Category: Medical Code(s): Z85.3 - Personal history of malignant neoplasm of breast (13) Hx of thyroid disease Current visit: No Status: Chronic Category: Medical Code(s): Z86.39 - P ersonal history of other endocrine, nutritional and metabolic disease (14) Pulmonary HTN Current visit: No Status: Chronic Category: Medical Code(s): I27.20 - Pulmonary hypertension, unspecified - Assessment and plan all Dx Assessment and Plan for all problems:: Medication adjustments as described above. Duo nebs ordered 3 times daily.
[2019-06-01 13:12] LABS: Basophils # 0.1 K/mm3 (0-0.2); Basophils % 0.8 % (0.1-2.0); Eosinophils # 0.2 K/mm3 (0.0-0.4); Eosinophils % 2.8 % (0.1-12.0); Hematocrit 27.5 % (37.0-47.0); Hemoglobin 8.4 g/dL (12.2-16.2); Lymphocytes # 1.6 K/mm3 (0.7-4.5); Lymphocytes % 19.8 % (10-50); Mean Corpuscular HGB Conc 30.6 g/dL (31.8-35.4); Mean Corpuscular Volume 82.5 fl (81-99); Mean Platelet Volume 8.3 fl (7.4-10.4); Monocytes # 0.5 K/mm3 (0.1-1.0); Monocytes % 6.2 % (1.7-9.3); Neutrophils # 5.5 K/mm3 (1.8-7.8); Neutrophils % 70.4 % (37.0-80.0); Platelet Count 248 K/mm3 (142-424); Red Blood Count 3.33 M/mm3 (4.20-5.40); Red Cell Distribution Width 15.7 % (11.5-17.5); White Blood Count 7.8 K/mm3 (4.8-10.8)
[2019-06-01 13:24] LABS: Anion Gap 11.6 mEq/L (5-15); Calcium 9.8 mg/dl (8.4-10.2)
[2019-06-02 06:11] LABS: Basophils # 0.1 K/mm3 (0-0.2); Basophils % 0.6 % (0.1-2.0); Eosinophils # 0.2 K/mm3 (0.0-0.4); Eosinophils % 2.1 % (0.1-12.0); Hemoglobin 8.2 g/dL (12.2-16.2); Lymphocytes # 1.5 K/mm3 (0.7-4.5); Lymphocytes % 18.3 % (10-50); Mean Corpuscular HGB Conc 31.4 g/dL (31.8-35.4); Mean Corpuscular Volume 82.8 fl (81-99); Mean Platelet Volume 8.7 fl (7.4-10.4); Monocytes # 0.4 K/mm3 (0.1-1.0); Monocytes % 5.2 % (1.7-9.3); Neutrophils # 5.8 K/mm3 (1.8-7.8); Neutrophils % 73.8 % (37.0-80.0); Platelet Count 232 K/mm3 (142-424); Red Blood Count 3.14 M/mm3 (4.20-5.40); Red Cell Distribution Width 15.9 % (11.5-17.5); White Blood Count 7.9 K/mm3 (4.8-10.8)
[2019-06-02 06:21] LABS: Anion Gap 11.5 mEq/L (5-15); Calcium 9.5 mg/dl (8.4-10.2)
--- NOTE | 2019-06-02 07:56 | Progress Note ---
Subjective Date: 06/02/19 Time: 07:53 Principal diagnosis: Acute renal insufficiency, aortic stenosis Interval history: 74-year-old white female in bed in no acute distress. Some nausea and dry heaving yesterday resolved after IV medication. Patient has very little ap petite this morning but is able to keep food down and fluid down. She is anxious regarding possible TAVR procedure and the evaluation procedures needed prior to that. We discussed her aortic stenosis and the progressive nature of the disease if she does nothing to prevent it. Patient wishes to talk to her son before consenting to right and left heart cath which could be performed today. She is scheduled for a [facility] on . Patient remains afebrile throughout her stay. Creatinine has improved to 1.6 this morning Blood pressure is stable with increasing medications over the weekend. Patient is on both vancomycin and ceftriaxone for possible UTI. Exam Vital signs and Labs for Last 24 Hours: Temp Pulse Resp BP Pulse Ox 98.5 F 70 16 151/73 H 96 06/02/19 04:31 06/02/19 06:44 06/02/19 04:31 06/02/19 04:31 06/02/19 06:44 Laboratory Results - last 24 hr 06/01/19 12:50: WBC 7.8, RBC 3.33 L, Hgb 8.4 L, Hct 27.5 L, MCV 82.5, MCH 25.2 L , MCHC 30.6 L, RDW 15.7, Plt Count 248, MPV 8.3, Neut % (Auto) 70.4, Lymph % (Auto) 19.8, [place] % (Auto) 6.2, Eos % (Auto) 2.8, Baso % (Auto) 0.8, Neut # (Auto) 5.5, Lymph # (Auto) 1.6, [place] # (Auto) 0.5, Eos # (Auto) 0.2, Baso # (Auto) 0.1 06/01/19 12:50: Sodium 141, Potassium 4.6, Chloride 112 H, Carbon Dioxide 22, Anion Gap 11.6, BUN 20 H D, Creatinine 1.60 H, Estimated Creat Clear 35, Estimated GFR 31 L, Est GFR ( Amer) 38 L D, Glucose 102 H, Calcium 9.8 06/02/19 05:20: WBC 7.9, RBC 3.14 L, Hgb 8.2 L, Hct 26.0 L, MCV 82.8, MCH 26.0 L , MCHC 31.4 L, RDW 15.9, Plt Count 232, MPV 8.7, Neut % (Auto) 73.8, Lymph % (Auto) 18.3, [place] % (Auto) 5.2, Eos % (Auto) 2.1, Baso % (Auto) 0.6, Neut # (Auto) 5.8, Lymph # (Auto) 1.5, [place] # (Auto) 0.4, Eos # (Auto) 0.2, Baso # (Auto) 0.1 06/02/19 05:20: Sodium 143, Potassium 4.5, Chloride 112 H, Carbon Dioxide 24, Anion Gap 11.5, BUN 14 D, Creatinine 1.60 H, Estimated Creat Clear 35, Estimated GFR 31 L, Est GFR ( Amer) 38 L, Glucose 94, Calcium 9.5 I & O for Last 24 hours: Intake & Output 05/30/19 05/31/19 06/01/19 06/02/19 11:59 11:59 11:59 11:59 Intake Total 1633 / 1633 2652 / 2652 1464 / 1464 916 / 916 Output Total 600 / 600 1300 / 1300 400 / 400 Balance 1033 / 1033 1352 / 1352 1064 / 1064 916 / 916 Weight 163 lb 1 oz 158 lb 12.8 oz 163 lb 1 oz 162 lb 5.01 oz Microbiology Reports for the Last 24 Hours: Microbiology 05/29/19 14:46 Urine,Clean Catch Urine Culture - Final Aerococcus urinae 05/29/19 15:40 Blood Blood Culture - Preliminary Streptococcus sanguinis - *Routine HEENT Exam Head: Present: normocephalic Eye: Present: EOMI, PERRL ENT: Present: mucous membranes moist - *Routine Respiratory Exam Present: CTA bilaterally. Absent: accessory muscle use, rales, rhonchi, wheezes - *Routine Cardiovascular Exam Present: RRR, murmur. Absent: gallop, rubs - *Routine Extremities Exam Absent: edema, calf tenderness - *Routine Neurological Exam Present: alert, oriented X3, moving all extremities Progress Note: A&P (1) Aortic stenosis Status: Chronic Current Visit: Yes (2) Acute renal failure Status: Acute Current Visit: Yes (3) Dehydration Status: Acute Current Visit: Yes (4) Hallucinations Status: Acute Current Visit: Yes (5) Chronic renal impairment Status: Chronic Current Visit: Yes (6) Anemia Status: Chronic Current Visit: Yes (7) COPD (chronic obstructive pulmonary disease) Status: Chronic Current Visit: Yes (8) Diastolic congestive heart failure Status: Chronic Current Visit: No (9) Former smoker Status: Chronic Current Visit: No (10) HLD (hyperlipidemia) Status: Chronic Current Visit: No (11) HTN (hypertension) Status: Chronic Current Visit: No (12) History of breast cancer Status: Chronic Current Visit: No (13) Hx of thyroid disease Status: Chronic Current Visit: No (14) Pulmonary HTN Status: Chronic Current Visit: No Assessment and Plan for All Diagnoses:: 1. Aortic stenosis, severe with need for work-up prior to consideration for TAVR. Work-up would include right and left heart catheterization with transesophageal echocardiogram later this week. Patient is optimized hemodynamic dynamically at this point. She has no edema with creatinine near her baseline of 1.4. Patient will discuss what her wishes are with her son and let us know if she wants to proceed with right and left heart catheterization today. 2. Confusion felt secondary to dehydration, resolved 3. Hypertension, controlled but not to goal on less medication than previously taking. 4. Pulmonary hypertension with diastolic congestive heart failure 5. COPD 6. Urinary tract infection 7. Chronic anemia, stable in the 8-9 range.
--- NOTE | 2019-06-02 16:51 | Progress Note ---
Internal Medicine - PN: Subj *Date: 06/02/19 *Time: 16:48 Interval history: The patient underwent cardiac catheterization today. The evaluation of her aortic stenosis revealed that she does not yet have to go through valvular replacement and will be managed medically. Her H&H has continued to drop and 2 units of packed red blood cells have been ordered. Exam Vital signs and Labs for Last 24 Hours: Temp Pulse Resp BP Pulse Ox 97.9 F 65 16 143/61 H 98 06/02/19 16:30 06/02/19 16:30 06/02/19 16:30 06/02/19 16:30 06/02/19 16:30 Laboratory Results - last 24 hr 06/02/19 05:20: WBC 7.9, RBC 3.14 L, Hgb 8.2 L, Hct 26.0 L, MCV 82.8, MCH 26.0 L , MCHC 31.4 L, RDW 15.9, Plt Count 232, MPV 8.7, Neut % (Auto) 73.8, Lymph % (Auto) 18.3, [place] % (Auto) 5.2, Eos % (Auto) 2.1, Baso % (Auto) 0.6, Neut # (Auto) 5.8, Lymph # (Auto) 1.5, [place] # (Auto) 0.4, Eos # (Auto) 0.2, Baso # (Aut o) 0.1 06/02/19 05:20: Sodium 143, Potassium 4.5, Chloride 112 H, Carbon Dioxide 24, Anion Gap 11.5, BUN 14 D, Creatinine 1.60 H, Estimated Creat Clear 35, Estimated GFR 31 L, Est GFR ( Amer) 38 L, Glucose 94, Calcium 9.5 06/02/19 13:50: ABG O2 Sat (Measured) 50.6 L, POC VBG O2 Sat (Balwinder) 48.6 L 06/02/19 14:55: Blood Type A Positive, Antibody Screen Negative, Crossmatch ([facility]) See Detail 06/02/19 16:00: Blood Type Confirm A Positive I & O for Last 24 hours: Intake & Output 05/31/19 06/01/19 06/02/19 06/03/19 11:59 11:59 11:59 11:59 Intake Total 2652 / 2652 1464 / 1464 1036 / 1036 Output Total 1300 / 1300 400 / 400 Balance 1352 / 1352 1064 / 1064 1036 / 1036 Weight 158 lb 12.8 oz 163 lb 1 oz 162 lb 5.01 oz Microbiology Reports for the Last 24 Hours: Microbiology 05/29/19 15:40 Blood Blood Culture - Preliminary Streptococcus sanguinis - Constitutional no acute distress (Patient was seen briefly this morning. This afternoon she is post catheterization and is drowsy.) - *Routine HEENT Exam Head: Present: normocephalic Eye: Present: PERRL ENT: Present: mucous membranes moist - *Routine Neck Exam Present: supple (She has a dressing in place in the right supraclavicular area) - Routine Chest/Breast/Axilla Exam Breast: Absent: tenderness - *Routine Respiratory Exam Absent: respiratory distress - *Routine Cardiovascular Exam Present: RRR, murmur - *Routine Abdominal Exam Present: soft. Absent: tenderness - *Routine Extremities Exam Absent: edema Assessment and Plan (1) Aortic stenosis Current visit: Yes Status: Chronic Category: Medical Code(s): I35.0 - Nonrheumatic aortic (valve) stenosis (2) Acute renal failure Current visit: Yes Status: Acute Category: Medical Code(s): N17.9 - Acute kidney failure, unspecified (3) Dehydration Current visit: Yes Status: Acute Category: Medical Code(s): E86.0 - Dehydration (4) Hallucinations Current visit: Yes Status: Acute Category: Medical Code(s): R44.3 - Hallucinations, unspecified (5) Chronic renal impairment Current visit: Yes Status: Chronic Category: Medical Code(s): N18.9 - Chronic kidney disease, unspecified (6) Anemia Current visit: Yes Status: Chronic Category: Medical Code(s): D64.9 - Anemia, unspecified (7) COPD (chronic obstructive pulmonary disease) Current visit: Yes Status: Chronic Category: Medical Code(s): J44.9 - Chronic obstructive pulmonary disease, unspecified (8) Diastolic congestive heart failure Current visit: No Status: Chronic Qualifiers: Heart failure chronicity: unspecified Qualified Code(s): I50.30 - Unspecified diastolic (congestive) heart failure Category: Medical Code(s): I50.30 - Unspecified diastolic (congestive) heart failure (9) Former smoker Current visit: No Status: Chronic Category: Social Hx Code(s): Z87.891 - Personal history of nicotine dependence (10) HLD (hyperlipidemia) Current visit: No Status: Chronic Qualifiers: Hyperlipidemia type: mixed hyperlipidemia Qualified Code(s): E78.2 - Mixed hyperlipidemia Category: Medical Code(s): E78.5 - Hyperlipidemia, unspecified (11) HTN (hypertension) Current visit: No Status: Chronic Qualifiers: Hypertension type: essential hypertension Qualified Code(s): I10 - Essential (primary) hypertension Category: Medical Code(s): I10 - Essential (primary) hypertension (12) History of breast cancer Current visit: No Status: Chronic Category: Medical Code(s): Z85.3 - Personal history of malignant neoplasm of breast (13) Hx of thyroid disease Current visit: No Status: Chronic Category: Medical Code(s): Z86.39 - Personal history of other endocrine, nutritional and metabolic disease (14) Pulmonary HTN Current visit: No Status: Chronic Category: Medical Code(s): I27.20 - Pulmonary hypertension, unspecified (15) Bacteremia due to Streptococcus Current visit: Yes Status: Acute Category: Medical Code(s): R78.81 - Bacteremia; B95.5 - Unspecified streptococcus as the cause of diseases classified elsewhere - Assessment and plan all Dx Assessment and Plan for all problems:: Possible discharge in the morning.
[2019-06-03 00:15] LABS: Hematocrit 33.4 % (37.0-47.0)
[2019-06-03 00:18] LABS: Hemoglobin 10.7 g/dL (12.2-16.2)
[2019-06-03 06:50] LABS: Basophils # 0.1 K/mm3 (0-0.2); Basophils % 0.7 % (0.1-2.0); Eosinophils # 0.2 K/mm3 (0.0-0.4); Eosinophils % 2.5 % (0.1-12.0); Hematocrit 32.2 % (37.0-47.0); Lymphocytes # 1.3 K/mm3 (0.7-4.5); Mean Corpuscular HGB Conc 30.9 g/dL (31.8-35.4); Mean Corpuscular Volume 85.7 fl (81-99); Mean Platelet Volume 9.2 fl (7.4-10.4); Monocytes # 0.6 K/mm3 (0.1-1.0); Monocytes % 5.8 % (1.7-9.3); Neutrophils # 7.3 K/mm3 (1.8-7.8); Platelet Count 225 K/mm3 (142-424); Red Blood Count 3.76 M/mm3 (4.20-5.40); Red Cell Distribution Width 15.8 % (11.5-17.5); White Blood Count 9.5 K/mm3 (4.8-10.8)
[2019-06-03 07:02] LABS: Anion Gap 10.4 mEq/L (5-15); Calcium 9.5 mg/dl (8.4-10.2)
--- NOTE | 2019-06-03 08:51 | Progress Note ---
Internal Medicine - PN: Subj *Date: 06/03/19 *Time: 09:18 Interval history: Patient states she feels about the same. She did sleep somewhat during the night. She has not had breakfast and is not hungry. She denies chest pain and shortness of breath. Patient is also being followed by cardiology with assessment and plan as follows: Moderate coronary artery disease and to continue with aspirin and add statin therapy; mild aortic stenosis and to continue statin therapy; HHD to continue with a combo of metoprolol, verapamil and lisinopril and titrate up as tolerated; anemia status post transfusion with hemoglobin greater than 10. We will stop the Plavix and continue with the aspirin; acute renal failure resolved and consider restarting diuretic as an outpatient; okay for discharge from cardiology standpoint with follow-up in 2 weeks. Exam Vital signs and Labs for Last 24 Hours: Temp Pulse Resp BP Pulse Ox 99.4 F 60 18 169/67 H 98 06/03/19 04:00 06/03/19 06:18 06/03/19 06:00 06/03/19 06:00 06/03/19 06:00 Laboratory Results - last 24 hr 06/02/19 13:50: ABG O2 Sat (Measured) 50.6 L, POC VBG O2 Sat (Balwinder) 48.6 L 06/02/19 14:55: Blood Type A Positive, Antibody Screen Negative, Crossmatch ([facility]) See Detail 06/02/19 16:00: Blood Type Confirm A Positive 06/03/19 00:10: Hgb 10.7 L D, Hct 33.4 L 06/03/19 06:15: WBC 9.5, RBC 3.76 L, Hgb 10.0 L, Hct 32.2 L, MCV 85.7, MCH 26.5 L, MCHC 30.9 L, RDW 15.8, Plt Count 225, MPV 9.2, Neut % (Auto) 77.0, Lymph % (Auto) 14.0, [place] % (Auto) 5.8, Eos % (Auto) 2.5, Baso % (Auto) 0.7, Neut # (Auto) 7.3, Lymph # (Auto) 1.3, [place] # (Auto) 0.6, Eos # (Auto) 0.2, Baso # (Auto) 0.1 06/03/19 06:15: Sodium 141, Potassium 4.4, Chloride 111 H, Carbon Dioxide 24, Anion Gap 10.4, BUN 14, Creatinine 1.70 H, Estimated Creat Clear 32, Estimated GFR 29 L, Est GFR ( Amer) 35 L, Glucose 96, Calcium 9.5 I & O for Last 24 hours: Intake & Output 05/31/19 06/01/19 06/02/19 06/03/19 11:59 11:59 11:59 11:59 Intake Total 2652 / 2652 1464 / 1464 1036 / 1036 1751 / 1751 Output Total 1300 / 1300 400 / 400 500 / 500 Balance 1352 / 1352 1064 / 1064 1036 / 1036 1251 / 1251 Weight 158 lb 12.8 oz 163 lb 1 oz 162 lb 5.01 oz 161 lb 1.6 oz Microbiology Reports for the Last 24 Hours: Microbiology 05/29/19 15:40 Blood Blood Culture - Preliminary Streptococcus sanguinis Radiology Reports for the Last 24 Hours: Repeat chest x-ray 06/02/2019 IMPRESSION: Chronic changes with improvement in the lingular infiltrate Heart cath results 06/02/2019 IMPRESSION 20 mm transaortic valve gradient consistent with mild aortic stenosis Hyperdynamic ventricle consistent with hypertensive heart disease with severe diastolic dysfunction Moderate coronary disease in the proximal and mid codominant right coronary artery which is [id number] Mild pulmonary hypertension PLAN 1. Medical management for severe diastolic dysfunction. At this point the aortic stenosis is only mild. 2. Medical management for coronary artery disease 3. LDL less than 55 - Constitutional Comments: Sitting up in the bed sleeping. Awakens easily. Appears comfortable. - *Routine Respiratory Exam Present: crackles (Bibasilar) - *Routine Cardiovascular Exam Present: RRR - *Routine Abdominal Exam Present: soft, normoactive bowel sounds. Absent: tenderness, distended - *Routine Extremities Exam Absent: edema, calf tenderness - *Routine Neurological Exam Present: alert, oriented X3 Assessment and Plan (1) Aortic stenosis Current visit: Yes Status: Chronic Category: Medical Code(s): I35.0 - Nonrheumatic aortic (valve) stenosis (2) Acute renal failure Current visit: Yes Status: Acute Category: Medical Code(s): N17.9 - Acute kidney failure, unspecified (3) Dehydration Current visit: Yes Status: Acute Category: Medical Code(s): E86.0 - Dehydration (4) Hallucinations Current visit: Yes Status: Acute Category: Medical Code(s): R44.3 - Hallucinations, unspecified (5) Chronic renal impairment Current visit: Yes Status: Chronic Category: Medical Code(s): N18.9 - Chronic kidney disease, unspecified (6) Anemia Current visit: Yes Status: Chronic Category: Medical Code(s): D64.9 - An emia, unspecified (7) COPD (chronic obstructive pulmonary disease) Current visit: Yes Status: Chronic Category: Medical Code(s): J44.9 - Chronic obstructive pulmonary disease, unspecified (8) Diastolic congestive heart failure Current visit: No Status: Chronic Qualifiers: Heart failure chronicity: unspecified Qualified Code(s): I50.30 - Unspecified diastolic (congestive) heart failure Category: Medical Code(s): I50.30 - Unspecified diastolic (congestive) heart failure (9) Former smoker Current visit: No Status: Chronic Category: Social Hx Code(s): Z87.891 - Personal history of nicotine dependence (10) HLD (hyperlipidemia) Current visit: No Status: Chronic Qualifiers: Hyperlipidemia type: mixed hyperlipidemia Qualified Code(s): E78.2 - Mixed hyperlipidemia Category: Medical Code(s): E78.5 - Hyperlipidemia, unspecified (11) HTN (hypertension) Current visit: No Status: Chronic Qualifiers: Hypertension type: essential hypertension Qualified Code(s): I10 - Essential (primary) hypertension Category: Medical Code(s): I10 - Essential (primary) hypertension (12) History of breast cancer Current visit: No Status: Chronic Category: Medical Code(s): Z85.3 - Personal history of malignant neoplasm of breast (13) Hx of thyroid disease Current visit: No Status: Chronic Category: Medical Code(s): Z86.39 - Personal history of other endocrine, nutritional and metabolic disease (14) Pulmonary HTN Current visit: No Status: Chronic Category: Medical Code(s): I27.20 - Pulmonary hypertension, unspecified (15) Bacteremia due to Streptococcus Current visit: Yes Status: Acute Category: Medical Code(s): R78.81 - Bacteremia; B95.5 - Unspecified streptococcus as the cause of diseases classified elsewhere - Assessment and plan all Dx Assessment and Plan for all problems:: We will continue with IV antibiotics and nebs. Will follow cardiology direction. Will discontinue Plavix.
--- NOTE | 2019-06-03 08:55 | Progress Note ---
Subjective Date: 06/03/19 Time: 08:52 Principal diagnosis: Acute renal insufficiency, aortic stenosis Interval history: 74 yo WF in bed in NAD. No complaints. Transfused to Hgb >10 yesterday. Hematoma noted at site of attempted right IJ catheter insertion (ultimately RHC performed via groin access). Right radial site OK. Exam Vital signs and Labs for Last 24 Hours: Temp Pulse Resp BP Pulse Ox 99.4 F 60 18 169/67 H 98 06/03/19 04:00 06/03/19 06:18 06/03/19 06:00 06/03/19 06:00 06/03/19 06:00 Laboratory Results - last 24 hr 06/02/19 13:50: ABG O2 Sat (Measured) 50.6 L, POC VBG O2 Sat (Balwinder) 48.6 L 06/02/19 14:55: Blood Type A Positive, Antibody Screen Negative, Crossmatch ([facility]) See Detail 06/02/19 16:00: Blood Type Confirm A Positive 06/03/19 00:10: Hgb 10.7 L D, Hct 33.4 L 06/03/19 06:15: WBC 9.5, RBC 3.76 L, Hgb 10.0 L, Hct 32.2 L, MCV 85.7, MCH 26.5 L, MCHC 30.9 L, RDW 15.8, Plt Count 225, MPV 9.2, Neut % (Auto) 77.0, Lymph % (Auto) 14.0, [place] % (Auto) 5.8, Eos % (Auto) 2.5, Baso % (Auto) 0.7, Neut # (Auto) 7.3, Lymph # (Auto) 1.3, [place] # (Auto) 0.6, Eos # (Auto) 0.2, Baso # (Auto) 0.1 06/03/19 06:15: Sodium 141, Potassium 4.4, Chloride 111 H, Carbon Dioxide 24, Anion Gap 10.4, BUN 14, Creatinine 1.70 H, Estimated Creat Clear 32, Estimated GFR 29 L, Est GFR ( Amer) 35 L, Glucose 96, Calcium 9.5 I & O for Last 24 hours: Intake & Output 05/31/19 06/01/19 06/02/19 06/03/19 11:59 11:59 11:59 11:59 Intake Total 2652 / 2652 1464 / 1464 1036 / 1036 1751 / 1751 Output Total 1300 / 1300 400 / 400 500 / 500 Balance 1352 / 1352 1064 / 1064 1036 / 1036 1251 / 1251 Weight 158 lb 12.8 oz 163 lb 1 oz 162 lb 5.01 oz 161 lb 1.6 oz Microbiology Reports for the Last 24 Hours: Microbiology 05/29/19 15:40 Blood Blood Culture - Preliminary Streptococcus sanguinis - *Routine HEENT Exam Head: Present: normocephalic Eye: Present: EOMI, PERRL ENT: Present: mucous membranes moist - *Routine Respiratory Exam Present: CTA bilaterally. Absent: accessory muscle use, rales, rhonchi, wheezes - *Routine Cardiovascular Exam Present: RRR, murmur. Absent: gallop, rubs - *Routine Abdominal Exam Present: soft. Absent: tenderness, distended, guarding - *Routine Extremities Exam Absent: edema, calf tenderness - *Routine Neurological Exam Present: alert, oriented X3, moving all extremities Progress Note: A&P (1) Aortic stenosis Status: Chronic Current Visit: Yes (2) Acute renal failure Status: Acute Current Visit: Yes (3) Dehydration Status: Acute Current Visit: Yes (4) Hallucinations Status: Acute Current Visit: Yes (5) Chronic renal impairment Status: Chronic Current Visit: Yes (6) Anemia Status: Chronic Current Visit: Yes (7) COPD (chronic obstructive pulmonary disease) Status: Chronic Current Visit: Yes (8) Diastolic congestive heart failure Status: Chronic Current Visit: No (9) Former smoker Status: Chronic Current Visit: No (10) HLD (hyperlipidemia) Status: Chronic Current Visit: No (11) HTN (hypertension) Status: Chronic Current Visit: No (12) History of breast cancer Status: Chronic Current Visit: No (13) Hx of thyroid disease Status: Chronic Current Visit: No (14) Pulmonary HTN Status: Chronic Current Visit: No (15) Bacteremia due to Streptococcus Status: Acute Current Visit: Yes Assessment and Plan for All Diagnoses:: 1. Moderate CAD, continue ASA and add statin therapy (atorvastatin 40 mg daily). 2. Mild Aortic stenosis, continue statin therapy. 3. HHD, continue combo of metoprolol, verapamil and lisinopril. Titrate up as tolerated. 4. Anemia, s/p transfusion with Hgb >10. Workup per Dr. Joel. 5. ARF, resolved. Consider restarting diuretic as outpatient. 6. OK to discharge home from Cardiology standpoint with follow up in 2 wks.
--- NOTE | 2019-06-04 15:01 | Discharge Summary ---
General - General Admission date:: 05/29/19 Discharge date: 06/03/19 HPI HPI: Ms. Bedoya is a 74-year-old female with a history of CHF, pulmonary hypertension, aortic stenosis, hypertension, COPD, chronic kidney disease, hyperlipidemia, seizures, and anemia. She presented to the office of [facility] today with complaints of feeling weak and fatigued. Her family stated she had been having hallucinations at home and they were worried about her. She has been seen recently by the mica parts sprayer and was started on spironolactone along with her Lasix for heart failure. She had labs done today and was instructed to see her PCP. Her blood pressure was normal in the office and her oxygen was 95% on 3 L of oxygen. Lab work revealed a BUN of 59 and a creatinine of 3. Her BNP was elevated at 992. Her sodium was low and her potassium was elevated. She was admitted for acute kidney injury and dehydration. She will have an infection work-up. Hospital Course Hospital Course: The patient was admitted and started on IV fluids. A chest x-ray, further labs, UA, and blood cultures were ordered. The chest x-ray showed atelectatic and/or fibrotic changes on the left with patchy density in the left lower lobe possibly due to an area of infiltrate or pleural thickening. She felt much better after hydration and her confusion had improved. She was able to eat. Her potassium and renal function improved slightly and she continued with rehydration. She was started on Rocephin for possible UTI and her diuretics were held. Her urine culture started growing gram-positive cocci, therefore her Rocephin was discontinued and she was started on vancomycin. Cardiology was consulted due to the patient's severe aortic stenosis. They wanted to do a right and left heart cath and a transesophageal echo once the patient's creatinine was below 2. She continued to improve each day. Her urine culture appear to be growing Streptococcus and she was also growing gram- positive cocci in her blood. She was continued on antibiotics. Her urine culture came back positive for Aerococcus urinae and her blood culture came positive for Streptococcus sanguinous which was sensitive to vancomycin. Her renal function improved. Cardiology felt the patient was a candidate for TAVR but wanted to do a cardiac work-up prior to this. Her renal function had improved and they therefore did a cardiac catheterization which showed only mild aortic stenosis and no significant pulmonary hypertension. There was also no significant coronary artery disease. They recommended using a combo of beta-van and verapamil in addition to lisinopril and did not feel there was a need for TAVR or consideration of valve replacement. The patient had a repeat chest x-ray showing chronic changes with improvement in the lingular infiltrate. Her H&H did drop and she had to be given 2 units of packed red blood cells with improvement in her H&H. Cardiology wanted to keep her hemoglobin above 10. By 06/03/2019 she was ready to be discharged home. Her Plavix was discontinued and she was continued on aspirin. Her acute renal failure had resolved and she was restarted on a diuretic as an outpatient. She was also continued on Cefdinir as an outpatient as well as nebs. She will follow-up with both Dr. Joel and Dr. Restrepo. Objective Vital signs: Temp Pulse Resp BP Pulse Ox 97.9 F 70 17 177/70 H 93 L 06/03/19 11:57 06/03/19 12:00 06/03/19 11:57 06/03/19 11:57 06/03/19 09:00 Narrative: - Constitutional no acute distress (mildly confused) - *Routine HEENT Exam Head: Present: normocephalic Eye: Present: EOMI, PERRL ENT: Present: mucous membranes dry - *Routine Neck Exam Present: supple. Absent: lymphadenopathy - *Routine Respiratory Exam Present: decreased breath sounds, CTA bilaterally - *Routine Cardiovascular Exam Present: RRR, murmur - *Routine Abdominal Exam Present: soft, normoactive bowel sounds. Absent: tenderness - *Routine Extremities Exam Absent: cyanosis, clubbing, edema - *Routine Skin Exam Present: warm. Absent: rash - *Routine Neurological Exam Present: alert, oriented X3 Results Labs on day of discharge: Preliminary micro results at discharge 05/29/19 15:40 Blood Culture - Preliminary Blood Streptococcus sanguinis DS: Diagnosis - Discharge Diagnosis (1) Aortic stenosis Status: Chronic (2) Acute renal failure Status: Acute (3) Dehydration Status: Acute (4) Hallucinations Status: Acute (5) Chronic renal impairment Status: Chronic (6) Anemia Status: Chronic (7) COPD (chronic obstructive pulmonary disease) Status: Chronic (8) Diastolic congestive heart failure Status: Chronic (9) Former smoker Status: Chronic (10) HLD (hyperlipidemia) Status: Chronic (11) HTN (hypertension) Status: Chronic (12) History of breast cancer Status: Chronic (13) Hx of thyroid disease Status: Chronic (14) Pulmonary HTN Status: Chronic (15) Bacteremia due to Streptococcus Status: Acute Discharge Plan - Patient Discharge Instructions Patient Instructions: Heart-Healthy Diet, DI for Kidney Failure, DI for Dehydration -- Adult, DI for Cardiac Catheterization, DI for Urinary Tract Infection (UTI), DI for Surgical Site Infection - Follow up Plan Follow up with: Anita Joel MD [Primary Care Provider] - 06/09/19 2:00 pm Gordon Restrepo MD [Staff Physician] - 06/12/19 11:30 am Unknown provider or service follow up:: 06/03/19 13:[address] Joel Sunday06/09/2019 Disposition: Home, [facility] Medications: Home Medications Medication Instructions Recorded Confirmed Type Clopidogrel Bisulfate [Plavix 75mg 75 mg PO DAILY 01/20/19 05/29/19 History Tab] ferrous sulfate 325 mg (65 mg 325 mg PO BID 04/24/19 05/29/19 History iron) tablet gabapentin 100 mg capsule 200 mg PO DAILY cap 04/24/19 05/29/19 History levothyroxine 88 mcg tablet 88 mcg PO DAILY 04/24/19 05/29/19 History mecobalamin (vitamin B12) 1,000 1,000 mcg PO DAILY 04/24/19 05/29/19 History mcg chewable tablet sertraline 100 mg tablet 150 mg PO DAILY 04/24/19 05/30/19 History Albuterol Sulfate [Albuterol 2.5 mg IH Q6H 05/29/19 05/29/19 History 0.083% 2.5mg/3mL neb] Budesonide 0.5 mg IH BID 05/29/19 05/29/19 History Furosemide [Furosemide 20mg Tab] 20 mg PO DAILYP PRN 05/29/19 05/29/19 History Ipratropium/Albuterol Sulfate 1 puff IH QID 05/29/19 05/29/19 History [Combivent Respimat Inh] polyethylene glycoL 3350 [Miralax 17 gm PO DAILY 05/29/19 05/29/19 History 17gm Packet] Cefdinir [Omnicef 300mg Capsule] 300 mg PO BID #20 cap 06/03/19 Rx Metoprolol Succinate [Toprol XL 25 mg PO BID #60 tab.er.24h 06/03/19 Rx 25mg tablet] Verapamil HCl [Calan SR 180mg 180 mg PO DAILY #30 tablet.er 06/03/19 Rx tablet] lisinopriL [Zestril 10mg Tab] 10 mg PO BID #60 tab 06/03/19 Rx Prescriptions/Medication Reconciliation: New Verapamil HCl [Calan SR 180mg tablet] 180 mg PO DAILY #30 tablet.er Metoprolol Succinate [Toprol XL 25mg tablet] 25 mg PO BID #60 tab.er.24h lisinopriL [Zestril 10mg Tab] 10 mg PO BID #60 tab Cefdinir [Omnicef 300mg Capsule] 300 mg PO BID #20 cap Continued ferrous sulfate 325 mg (65 mg iron) tablet 325 mg PO BID levothyroxine 88 mcg tablet 88 mcg PO DAILY mecobalamin (vitamin B12) 1,000 mcg chewable tablet 1,000 mcg PO DAILY gabapentin 100 mg capsule 200 mg PO DAILY cap sertraline 100 mg tablet 150 mg PO DAILY Furosemide [Furosemide 20mg Tab] 20 mg PO DAILYP PRN PRN Reason: Edema Clopidogrel Bisulfate [Plavix 75mg Tab] 75 mg PO DAILY Albuterol Sulfate [Albuterol 0.083% 2.5mg/3mL neb] 2.5 mg IH Q6H Budesonide 0.5 mg IH BID Ipratropium/Albuterol Sulfate [Combivent Respimat Inh] 1 puff IH QID polyethylene glycoL 3350 [Miralax 17gm Packet] 17 gm PO DAILY Discontinued methocarbamol 750 mg tablet 750 mg PO HS metoprolol succinate 100 mg tablet,extended release 24 hr 100 mg PO DAILY aspirin 81 mg tablet,delayed release 81 mg PO DAILY lisinopriL [Lisinopril 40mg Tablet] 40 mg PO DAILY Doxazosin Mesylate [Cardura 4mg tablet] 4 mg PO DAILY buPROPion HCL [Bupropion Xl] 300 mg PO DAILY Spironolactone 50 mg PO DAILY - Problem Reconciliation Problems Reviewed?: Yes
== END 2019-06-03 14:30 | disposition home or self-care (01) | DRG 286 ==
LOC: LAB 10:57 → 2ND 14:05
PROVIDERS: ADMIT Family Medicine; ATTEND Family Medicine
DX: Z99.81 Dependence on supplemental oxygen; E86.0 Dehydration; N18.9 Chronic kidney disease, unspecified; Z79.899 Other long term (current) drug therapy; I13.0 Hypertensive heart and chronic kidney disease with heart failure and stage 1 through stage 4 chronic kidney disease, or unspecified chronic kidney disease; I27.20 Pulmonary hypertension, unspecified; I35.0 Nonrheumatic aortic (valve) stenosis; D64.9 Anemia, unspecified; Z87.891 Personal history of nicotine dependence; N39.0 Urinary tract infection, site not specified; N17.9 Acute kidney failure, unspecified; I50.33 Acute on chronic diastolic (congestive) heart failure; K59.00 Constipation, unspecified; Z90.13 Acquired absence of bilateral breasts and nipples; Z85.3 Personal history of malignant neoplasm of breast; Z79.02 Long term (current) use of antithrombotics/antiplatelets; Z86.711 Personal history of pulmonary embolism; R10.9 Unspecified abdominal pain
CPT/HCPCS: 36415; 71020; 71046; 80048; 80053; 81001; 82810; 83605; 83735; 83880; 84443; 84484; 85014; 85018; 85025; 85044; 86850; 87040; 87077; 87086; 87088; 87186; 93460; 94640; 94761; 99152; 99153; C1725; C1769; C1894; J1644; J2405; J3370; P9016; Q9967

== ENCOUNTER → 2019-09-24 13:42 | Outpatient (POV) | payer MEDICARE, SELFPAY | PROVIDERS: PCP Family Medicine | DX: Z00.00 Encounter for general adult medical examination without abnormal findings (principal) ==

== ENCOUNTER → 2019-10-16 11:20 | Outpatient (CLI) | payer MEDICARE, SELFPAY ==
[2019-10-16 12:34] LABS: Alanine Aminotransferase 10 U/L (12-78); Albumin Level 3.7 g/dl (3.5-5.0); Alkaline Phosphatase 56 U/L (38-126); Aspartate Amino Transferase 21 U/L (14-36); Bilirubin,Direct 0.1 mg/dl (0.0-0.4); Bilirubin,Indirect 0.2 mg/dL (0.0-0.9); Bilirubin,Total 0.3 mg/dl (0.2-1.3); Bilirubin,Unconjugated 0.2 mg/dL (0.0-1.1); Chol/HDL Ratio 1.7 (1-3.5); Cholesterol 124 mg/dl (140-200); HDL Cholesterol 74 mg/dl (40-60); Total Protein,Serum 6.5 g/dl (6.3-8.2); Triglycerides 64 mg/dl (30-150); VLDL Cholesterol 13 mg/dL (0-40)
[2019-10-16 12:45] LABS: Direct LDL Cholesterol 46.56 mg/dL (100-129)
== END ==
PROVIDERS: Visit Provider Internal Medicine Cardiovascular Disease
DX: I11.9 Hypertensive heart disease without heart failure (principal); I25.10 Atherosclerotic heart disease of native coronary artery without angina pectoris
CPT/HCPCS: 36415; 80061; 80076

== ENCOUNTER 2019-10-20 20:21 | Inpatient (IN) | payer MEDICARE, SELFPAY ==
[2019-10-20] VITALS (7 sets, daily range): BP systolic 154–186; BP diastolic 62–73; PULSE 73–79; RESP 24–27; TEMP 38.1–38.8; O2SAT 89–95; BMI 28.3
--- NOTE | 2019-10-20 20:32 | ECG_ITS ---
APPROVED REPORT Exam: Resting ECG HR:80 bpm ECG Measurements Heart Rate 80 AXES PA 144 P QRSd 78 QRS 91 QT 374 T 51 QTc 431 <Conclusion> Sinus rhythm with premature atrial complexes Rightward axis Nonspecific ST abnormality Abnormal ECG Electronically signed by : Enrique Patricia, 10/21/2019 15:00:35
--- NOTE | 2019-10-20 20:44 | XR_ITS ---
PROCEDURE: XR CHEST 2V CLINICAL HISTORY: sob Shortness of breath COMPARISON: CT CT ABDOMEN PELVIS WO CON from 05/11/2019 DX XR CHEST 2V from 05/29/2019 CR XR CHEST 2V from 06/02/2019 FINDINGS: There is cardiomegaly with pulmonary venous congestion consistent with CHF. There are atelectatic or fibrotic changes in the left midlung and right lung base. There is blunting of the CP angles bilaterally consistent with small bilateral effusions. No acute bony findings. IMPRESSION: CHF with small bilateral effusions Dictated b Dmitry Martinez MD 10/20/2019 22:34 Dmitry Martinez MD in [place] 10/20/2019 22:34
[2019-10-20 20:53] LABS: ABG Base Excess 0.7 mmol/L (-2.4-2.3); ABG HCO3 23.9 mmhg (22.0-26.0); ABG Oxygen Saturation 97 % (90-100); ABG PCO2 31.2 mmhg (35.0-45.0); ABG PO2 83.3 mmhg (80-100); ABG TCO2 24.9 mmhg (23-27)
--- NOTE | 2019-10-20 20:53 | HMH.EDFEV ---
ED Disposition Clinical Impression: SIRS (systemic inflammatory response syndrome) UTI (urinary tract infection) Qualifiers: Urinary tract infection type: site unspecified Hematuria presence: without hematuria Qualified Code(s): N39.0 - Urinary tract infection, site not specified COPD (chronic obstructive pulmonary disease) Qualifiers: COPD type: unspecified COPD Qualified Code(s): J44.9 - Chronic obstructive pulmonary disease, unspecified Chronic renal impairment Qualifiers: Chronic kidney disease stage: stage 3 (moderate) Qualified Code(s): N18.3 - Chronic kidney disease, stage 3 (moderate) Diastolic congestive heart failure Qualifiers: Heart failure chronicity: acute on chronic Qualified Code(s): I50.33 - Acute on chronic diastolic (congestive) heart failure Disposition: Admitted as Observation Condition on Discharge: Good Referrals: Anita Joel MD [Primary Care Provider] - - Critical Care Critical Care Time: No Attestation: On 10/20/19, the high probability of a clinically significant, sudden or life threatening deterioration of the following system(s) required my full and direct attention, intervention and personal management. The time I documented below is in addition to time spent performing reported procedures but includes the following listed in this critical care notation. Medical Decision Making - Medical Records Medical records reviewed: Yes: I reviewed the patient's medical records. - Doroteo Inquiry Pt receiving controlled substance: No Vital Signs: 10/20/19 20:37 10/20/19 21:00 10/20/19 21:30 Temperature 101.9 F H Temperature Source Oral Pulse Rate [Left Brachial] 79 75 73 Respiratory Rate 16 Blood Pressure [Left Arm] 186/69 H 168/66 H 176/68 H Blood Pressure Mean [Left Arm] 108 100 104 Blood Pressure Source [Left Arm] Automatic Cuff Automatic Cuff Automatic Cuff Blood Pressure Position [Left Arm] Sitting Sitting Sitting 02 Sat by Pulse Oximetry 92 L 90 L 89 L Oxygen Delivery Method Nasal Cannula Nasal Cannula Nasal Cannula Oxygen Flow Rate (LPM) 3 3 3 10/20/19 22:11 Temperature 100.5 F H Temperature Source Oral Pulse Rate [Left Brachial] 76 Respiratory Rate Blood Pressure [Left Arm] 175/73 H Blood Pressure Mean [Left Arm] 107 Blood Pressure Source [Left Arm] Automatic Cuff Blood Pressure Position [Left Arm] Sitting 02 Sat by Pulse Oximetry 95 Oxygen Delivery Method Nasal Cannula Oxygen Flow Rate (LPM) 4 - Lab Data Lab results reviewed: Yes: I reviewed the patient's lab results. Lab Results 10/20/19 20:30: Troponin I 0.02 10/20/19 20:30: WBC 9.2, RBC 3.81 L, Hgb 11.7 L, Hct 35.0 L, MCV 92.0, MCH 30.8, MCHC 33.5, RDW 14.3, Plt Count 149, MPV 9.3, Neut % (Auto) 88.1 H, Lymph % (Auto) 7.2 L, Letcher % (Auto) 3.7, Eos % (Auto) 0.7, Baso % (Auto) 0.3, Neut # (Auto) 8.1 H, Lymph # (Auto) 0.7, Letcher # (Auto) 0.3, Eos # (Auto) 0.1, Baso # (Auto) 0.0, Total Counted 100, Neutrophils % (Manual) 95 H, Lymphocytes % (Manual) 3 L, Monocytes % (Manual) 1 L, Basophils % (Manual) 1.0, Platelet Estimate Normal, Stomatocytes 1+ 10/20/19 20:30: Sodium 140, Potassium 4.0, Chloride 102, Carbon Dioxide 28, Anion Gap 14.0, BUN 16, Creatinine 1.40 H, Estimated Creat Clear 39, Estimated GFR 37 L, Est GFR ( Amer) 44 L, Glucose 142 H, Calcium 10.6 H, Total Bilirubin 0.4, AST 23, ALT 12, Alkaline Phosphatase 63, Total Protein 7.2, Albumin 4.2, Globulin 3.0, Albumin/Globulin Ratio 1.4 10/20/19 20:30: Lactate 1.1 10/20/19 20:50: Specimen Source Right radial, O2 % 3l nc, ABG pH 7.50 H, ABG pCO2 31.2 L, ABG pO2 83.3, ABG HCO3 23.9, ABG Total CO2 24.9, ABG O2 Saturation 97, ABG Base Excess 0.7, Dmitry Test Acceptable 10/20/19 21:08: Urine Color Yellow, Urine Appearance Clear, Urine pH 7.0, Ur Specific Parrish 1.015, Urine Protein Negative, Urine Glucose (UA) Negative, Urine Ketones Negative, Urine Blood 2+, Urine Nitrate Negative, Urine Bilirubin Negative, Urine Urobilinogen 0.2, Ur Leukocyte Esterase 3+
[2019-10-20 20:54] LABS: Allen's Test Acceptable; Oxygen 3L NC %; Source Right Radial
[2019-10-20 21:06] LABS: Adenovirus,PCR Not Detected (NotDetected); Bordetella Pertussis Not Detected (NotDetected); Chlamydophila Pneumoniae, PCR Not Detected (NotDetected); Coronavirus 19, PCR Not Detected (NotDetected); Coronavirus 229E Not Detected (NotDetected); Coronavirus NL63 Not Detected (NotDetected); Coronavirus OC43 Not Detected (NotDetected); Coronovirus HKU1,PCR Not Detected (NotDetected); Human Metapneumovirus Not Detected (NotDetected); Influenza A, PCR Not Detected (NotDetected); Influenza AH1, 2009 Not Detected (NotDetected); Influenza AH1, PCR Not Detected (NotDetected); Influenza AH3,PCR Not Detected (NotDetected); Influenza B, PCR Not Detected (NotDetected); Mycoplasma Pneumoniae, PCR Not Detected (NotDetected); Parainfluenza 1, PCR Not Detected (NotDetected); Parainfluenza 2, PCR Not Detected (NotDetected); Parainfluenza 3, PCR Not Detected (NotDetected); Parainfluenza 4, PCR Not Detected (NotDetected); Respiratory Syncytial Virus Not Detected (NotDetected); Rhinovirus/Enterovirus Not Detected (NotDetected)
[2019-10-20 21:11] LABS: Basophils % 0.3 % (0.1-2.0); Eosinophils # 0.1 K/mm3 (0.0-0.4); Eosinophils % 0.7 % (0.1-12.0); Hemoglobin 11.7 g/dL (12.2-16.2); Lymphocytes # 0.7 K/mm3 (0.7-4.5); Lymphocytes % 7.2 % (10-50); Mean Corpuscular HGB Conc 33.5 g/dL (31.8-35.4); Mean Corpuscular Hemoglobin 30.8 pg (27.0-31.2); Mean Platelet Volume 9.3 fl (7.4-10.4); Monocytes # 0.3 K/mm3 (0.1-1.0); Monocytes % 3.7 % (1.7-9.3); Neutrophils # 8.1 K/mm3 (1.8-7.8); Neutrophils % 88.1 % (37.0-80.0); Platelet Count 149 K/mm3 (142-424); Red Blood Count 3.81 M/mm3 (4.20-5.40); Red Cell Distribution Width 14.3 % (11.5-17.5); White Blood Count 9.2 K/mm3 (4.8-10.8)
[2019-10-20 21:12] LABS: Microscopic, Urine URINE MICROSCOPIC (MICROSCOPIC)
[2019-10-20 21:14] LABS: MANUAL DIFFERENTIAL MANUAL DIFFERENTIAL (MANUAL DIFF)
--- NOTE | 2019-10-20 21:14 | PC.NURSE ---
return from rad
[2019-10-20 21:15] LABS: Chloride 102 mmol/L (98-107); Sodium 140 mmol/L (136-145)
[2019-10-20 21:18] LABS: Alanine Aminotransferase 12 U/L (12-78); Albumin Level 4.2 g/dl (3.5-5.0); Albumin/Globulin Ratio 1.4 (1.1-1.8); Alkaline Phosphatase 63 U/L (38-126); Aspartate Amino Transferase 23 U/L (14-36); Bilirubin,Total 0.4 mg/dl (0.2-1.3); Blood Urea Nitrogen 16 mg/dl (7-17); Calcium 10.6 mg/dl (8.4-10.2); Carbon Dioxide 28 mmol/L (22.0-30.0); Creatinine Clearance Estimated 39 mL/min (50-200); Estimated Glomerular Filt Rate 37 ml/min (>60); GFR (African American) 44 ML/MIN (>60); Glucose 142 mg/dl (74-100); Lactic Acid 1.1 mmol/L (0.7-2.1); Total Protein,Serum 7.2 g/dl (6.3-8.2)
[2019-10-20 21:31] LABS: Troponin I 0.02 ng/ml (0.00-0.034)
[2019-10-20 21:38] LABS: Lymphocytes % 3 % (10-50); Monocytes % 1 % (2-9); Neutrophils % 95 % (42-76); Platelet Estimate Normal; Total Cells Counted 100
[2019-10-20 21:39] LABS: Stomatocytes 1+
[2019-10-20 21:42] LABS: Appearance,Urine CLEAR (Clear); Bilirubin,Urine Negative (Negative); Blood, Urine 2+ (Negative); Color,Urine YELLOW (Yellow); Glucose,Urine (UA) Negative (Negative); Ketones,Urine Negative (Negative); Leukocyte Esterase,Urine 3+ (Negative); Nitrate,Urine Negative (Negative); Protein,Urine Negative (Negative); Specific Gravity, Urine 1.015 (1.005-1.030); Urobilinogen,Urine 0.2 EU/dl (0.2)
[2019-10-20 21:47] LABS: Bacteria,Urine 1+ /lpf
[2019-10-21] VITALS (18 sets, daily range): BP systolic 112–164; BP diastolic 48–83; PULSE 67–85; RESP 17–19; TEMP 36.7–38.1; O2SAT 77–98; BMI 30.4
[2019-10-21 00:25] LABS: Troponin I 0.03 ng/ml (0.00-0.034)
--- NOTE | 2019-10-21 00:48 | PC.NURSE ---
patient up to floor via wheelchiar
--- NOTE | 2019-10-21 02:38 | PC.NURSE ---
A&OX4. PT HAS TOLERATED 3L NC WELL THROUGHOUT SHIFT. RESPIRATIONS REGULAR AND UNLABORED. LUNG SOUNDS BILATERALLY CLEAR. NO COUGH NOTED. NO EDEMA NOTED. HEART RATE REGULAR. PT HAS REMAINED ON TELE THROUGHOUT SHIFT. ACTIVE BOWEL SOUNDS HEARD IN ALL 4 QUADRANTS. SOFT AND NONTENDER ABDOMEN. NO BM REPORTED. PT MOVES INDEPENDENTLY IN BED. NO REPORTS OF PAIN OR NAUSEA THUS FAR. PT HAS REMAINED AFEBRILE SINCE HER ADMISSION. HAND REAL ESTATE MANAGEMENT SPECIALIST EQUAL. NS INFUSING AT 50ML/HR. PT RESTING IN BED AT THIS TIME. BED IN LOWEST POSITION. CALL LIGHT WITHIN REACH. VSS. NO CONCERNS AT THIS TIME. WILL CONTINUE TO MONITOR.
[2019-10-21 03:19] LABS: Troponin I 0.03 ng/ml (0.00-0.034)
[2019-10-21 07:19] LABS: Basophils % 0.3 % (0.1-2.0); Eosinophils # 0.1 K/mm3 (0.0-0.4); Eosinophils % 0.8 % (0.1-12.0); Hematocrit 33.5 % (37.0-47.0); Hemoglobin 10.7 g/dL (12.2-16.2); Lymphocytes # 1.2 K/mm3 (0.7-4.5); Lymphocytes % 14.9 % (10-50); Mean Corpuscular HGB Conc 31.9 g/dL (31.8-35.4); Mean Corpuscular Hemoglobin 29.9 pg (27.0-31.2); Mean Corpuscular Volume 93.6 fl (81-99); Monocytes # 0.4 K/mm3 (0.1-1.0); Monocytes % 4.7 % (1.7-9.3); Neutrophils # 6.2 K/mm3 (1.8-7.8); Neutrophils % 79.4 % (37.0-80.0); Platelet Count 133 K/mm3 (142-424); Red Blood Count 3.58 M/mm3 (4.20-5.40); Red Cell Distribution Width 14.3 % (11.5-17.5); White Blood Count 7.8 K/mm3 (4.8-10.8)
[2019-10-21 07:28] LABS: Chloride 104 mmol/L (98-107); Potassium 3.9 mmoL/L (3.5-5.1); Sodium 142 mmol/L (136-145)
[2019-10-21 07:31] LABS: Anion Gap 10.9 mEq/L (5-15); Blood Urea Nitrogen 14 mg/dl (7-17); Carbon Dioxide 31 mmol/L (22.0-30.0); Creatinine Clearance Estimated 44 mL/min (50-200); Estimated Glomerular Filt Rate 40 ml/min (>60); GFR (African American) 48 ML/MIN (>60); Glucose 98 mg/dl (74-100)
--- NOTE | 2019-10-21 07:35 | P.CONPHA_ITS ---
[facility] Pharmacy VTE Monitoring - Patient Demographics Admission date: 10/20/19 Report Date: 10/21/19 Time: 07:35 Allergies/Adverse Reactions: Patient Allergies No Known Allergies Allergy (Verified 10/20/19 20:46) Height: 1.57 m Weight: 75.551 kg Patient Problems: Current Active Problems UTI (urinary tract infection) (Acute) SIRS (systemic inflammatory response syndrome) (Acute) Chronic renal impairment (Chronic) COPD (chronic obstructive pulmonary disease) (Chronic) Diastolic congestive heart failure (Chronic) - VTE Risk Labs: VTE Related Lab Results Hgb 11.7 g/dL (12.2-16.2) L 10/20/19 20:30 Hct 35.0 % (37.0-47.0) L 10/20/19 20:30 Plt Count 149 K/mm3 (142-424) 10/20/19 20:30 BUN 16 mg/dl (7-17) 10/20/19 20:30 Creatinine 1.40 mg/dl (0.52-1.04) H 10/20/19 20:30 Estimated Creat Clear 39 mL/min (50-200) 10/20/19 20:30 Was VTE Risk Assessment Performed: Yes VTE Score: 8 VTE Risk Level: Moderate Risk - Prophylaxis VTE Prophylaxis Ordered?: Yes Types of VTE Prophylaxis: TEDS Knee High Location of Applied Device: Bilateral Lower Extremeties - VTE Diagnosis Confirmed Treatment or plan recommended: Continue Current Treatment
[2019-10-21 08:17] LABS: Calcium 9.4 mg/dl (8.4-10.2)
--- NOTE | 2019-10-21 08:39 | HMH.HP ---
*Admission Date: 10/20/19 *Chief complaint: Shortness of breath and fever. *History of present illness: Ms. Bedoya is a 74-year-old female with a rather extensive medical history to include diastolic heart failure, pulmonary hypertension, aortic stenosis, hypertension, O2 dependent COPD, chronic kidney disease, arthritis, hyperlipidemia, breast cancer, depression, carotid artery disease, anemia, macular degeneration who presented to [facility] emergency room with progressive shortness of breath and fever. Patient states she has not felt well for several days but yesterday was the worst. She states she could not catch her breath. She describes a nonproductive cough and unable to produce sputum. He does use neb treatments at home but these did not help. She wears her oxygen continuously. She also described in the emergency room some vomiting but not denies this now. She was noted to be confused. She does not feel she has been eating or drinking as well. She denies chest pain at this point, palpitations, nausea and vomiting. Chest x-ray revealed congestive heart failure with small bilateral effusions. With evaluation in the emergency room white blood cell count initially was 9200 with a hemoglobin of 11.7 hematocrit of 35. Blood chemistries with normal electrolytes, BUN 16 with a creatinine of 1.4 and GFR of 37. Troponin I's were normal x3. Liver function studies have been normal. Urine did show 2+ blood, 3+ leukoesterase, and 1+ urine bacteria. COVID/19 PCR was negative. ABGs in the emergency room revealed a pH of 7.50, PCO2 of 31.2, PO2 of 83.3 and a bicarb of 23.9. With evaluation in the emergency room fever was noted to be 101.9 on admission. Blood pressure was elevated. She was given 500 mL of IV fluids And admitted for further evaluation treatment. This a.m. patient states she does not feel much better and still cannot cough anything up. [facility] History Medical History: Reports:: Atherosclerotic Heart Disease, Cancer (breast), Carotid Stenosis, Congestive Heart Failure, Chronic Obstructive Pulmonary Disease (COPD), Coronary Artery Disease, Depression, Heart Murmur, Home Oxygen, Hyperlipidemia, Hypertension, Lung Disease, Pulmonary Embolism, Renal Disease, Seizures Denies:: Diabetes Mellitus Type 1, Diabetes Mellitus Type 2, MRSA *Have you ever received a pneumonia vaccine?: Yes *Have you received a flu vaccine this season?: Yes Other Medical History: Reports: Anemia, Arthritis, Cataracts, Hypothyroidism, Thyroid Disease Laterality Cases: Bilateral: Mastectomy Other Surgeries: Yes: Cancer Surgery, Cardiac Catheterization Amputation: No Fractures: Yes (lt arm, rt wrist) - *Social History Last grade of school completed: High school graduate Smoking Status: Former smoker Tobacco Type: cigarettes #Yrs smoked (if former smoker): 40 Alcohol Intake: never Substance Use Type: denies use *Occupational Status:: retired Housing: house Household Members: family *Travel in the last 8 weeks: None - Psychiatric History Pschychiatric History:: Reports:: Depression Family Hx:: Cancer, Hypertension Review of Systems - Constitutional Reports headache(s), Reports weakness - Eyes Reports change in vision Comments: Right with diminished vision - ENT Reports headache(s), Reports nasal discharge, Reports post nasal drip, Denies dizziness, Denies ear pain, Denies nasal congestion, Denies sore throat - *Cardiovascular Reports shortness of breath, Denies chest pain - *Respiratory Reports cough, Reports shortness of breath, Denies change in phlegm color, Denies coughing up blood, Denies pain with cough - *Gastrointestinal Denies abdominal pain, Denies change in stools, Denies constipation, Denies heartburn, Denies difficulty swallowing, Denies heartburn, Denies vomiting blood, Denies black, tarry stools, Denies nausea, Denies vomiting - *Genitourinary Denies difficulty urinating - *Musculoskeletal Denies abnormal walking, De
--- NOTE | 2019-10-21 10:58 | HMH.PHAINT ---
MEDICATION RECONCILIATION COMPLETED ON PATIENT USING EXTERNAL FILL HISTORY FROM PHARMACY AND LIST FROM [facility] OFFICE. -TRINO PITTMAND
--- NOTE | 2019-10-21 19:25 | PC.NURSE ---
Pt alert and oriented and able to make needs known. PRN tylenol given per may for nails and temp 99.4. No other complaints. Dsg to iv changed in RAC. Fluids infusing. CB in reach. Scattered wheezes michele noted. Denies soa at this time. Continues on per HI. Report given to Vivek Young RN.
[2019-10-22] VITALS (15 sets, daily range): BP systolic 106–171; BP diastolic 46–75; PULSE 57–82; RESP 16–20; TEMP 36.6–37; O2SAT 79–97; BMI 29.6
--- NOTE | 2019-10-22 06:20 | PC.NURSE ---
A&OX4. PT HAS TOLERATED 3L NC WELL THROUGHOUT SHIFT. RESPIRATIONS REGULAR AND UNLABORED. CRACKLES NOTED IN RLL. +2 PULSES NOTED THROUGHOUT. HEART RATE REGULAR. PT HAS REMAINED ON TELE THROUGHOUT SHIFT. NSR NOTED. NO EDEMA NOTED. TEDS IN PLACE. ACTIVE BOWEL SOUNDS HEARD IN ALL 4 QUADRANTS. SOFT AND NONTENDER ABDOMEN. PT VOIDS PER BSC W STANDBY ASSISTANCE. CLOUDY YELLOW URINE NOTED. PT RECEIVED BED BATH AND LINEN CHANGE. NO BM REPORTED. NO REPORTS OF PAIN. PT HAS REMAINED AFEBRILE. NS INFUSING AT 50ML/HR. PT HAS RESTED WELL THIS SHIFT AND IS CURRENTLY LYING IN BED WATCHING TV. CALL LIGHT WITHIN REACH. BED IN LOWEST POSITION. VSS. NO CONCERNS AT THIS TIME. WILL CONTINUE TO MONITOR.
[2019-10-22 07:29] LABS: Chloride 104 mmol/L (98-107); Potassium 3.6 mmoL/L (3.5-5.1); Sodium 143 mmol/L (136-145)
[2019-10-22 07:32] LABS: Blood Urea Nitrogen 14 mg/dl (7-17); Creatinine Clearance Estimated 42 mL/min (50-200); Estimated Glomerular Filt Rate 40 ml/min (>60); GFR (African American) 48 ML/MIN (>60)
[2019-10-22 07:33] LABS: Anion Gap 10.6 mEq/L (5-15); Calcium 9.3 mg/dl (8.4-10.2); Carbon Dioxide 32 mmol/L (22.0-30.0); Glucose 99 mg/dl (74-100)
--- NOTE | 2019-10-22 08:13 | HMH.ACPN2 ---
Internal Medicine - PN: Subj *Date: 10/22/19 *Time: 08:13 Interval history: Patient is feeling better this morning. She states she slept well last night and did eat breakfast. Her shortness of breath has improved. She denies any pain other than in her back. Exam Vital signs and Labs for Last 24 Hours: Temp Pulse Resp BP Pulse Ox 98.6 F 82 20 171/74 H 93 L 10/22/19 07:59 10/22/19 07:59 10/22/19 07:59 10/22/19 07:59 10/22/19 07:59 Laboratory Results - last 24 hr 10/21/19 06:57: Calcium 9.4 D 10/22/19 07:00: Sodium 143, Potassium 3.6, Chloride 104, Carbon Dioxide 32 H, Anion Gap 10.6, BUN 14, Creatinine 1.30 H, Estimated Creat Clear 42, Estimated GFR 40 L, Est GFR ( Amer) 48 L, Glucose 99, Calcium 9.3 I & O for Last 24 hours: Intake & Output 10/19/19 10/20/19 10/21/19 10/22/19 11:59 11:59 11:59 11:59 Intake Total 1010 / 1010 2342 / 2342 Output Total 850 / 850 Balance 1010 / 1010 1492 / 1492 Weight 166 lb 9 oz 161 lb 2 oz Microbiology Reports for the Last 24 Hours: Microbiology 10/20/19 21:08 Urine,Clean Catch Urine Culture - Preliminary NO GROWTH AFTER 24 HOURS - Constitutional no acute distress - *Routine Respiratory Exam Present: rales (faint bibasilar rales) - *Routine Cardiovascular Exam Present: RRR - *Routine Abdominal Exam Present: soft, normoactive bowel sounds. Absent: tenderness - *Routine Extremities Exam Absent: cyanosis, clubbing, edema - *Routine Skin Exam Present: warm. Absent: rash - *Routine Neurological Exam Present: alert, oriented X3 Assessment and Plan (1) UTI (urinary tract infection) Current visit: Yes Status: Acute Qualifiers: Urinary tract infection type: site unspecified Hematuria presence: without hematuria Qualified Code(s): N39.0 - Urinary tract infection, site not specified Category: Medical Code(s): N39.0 - Urinary tract infection, site not specified (2) COPD (chronic obstructive pulmonary disease) Current visit: Yes Status: Chronic Qualifiers: COPD type: unspecified COPD Qualified Code(s): J44.9 - Chronic obstructive pulmonary disease, unspecified Category: Medical Code(s): J44.9 - Chronic obstructive pulmonary disease, unspecified (3) Chronic renal impairment Current visit: Yes Status: Chronic Qualifiers: Chronic kidney disease stage: stage 3 (moderate) Qualified Code(s): N18.3 - Chronic kidney disease, stage 3 (moderate) Category: Medical Code(s): N18.9 - Chronic kidney disease, unspecified (4) Diastolic congestive heart failure Current visit: Yes Status: Chronic Qualifiers: Heart failure chronicity: acute on chronic Qualified Code(s): I50.33 - Acute on chronic diastolic (congestive) heart failure Category: Medical Code(s): I50.30 - Unspecified diastolic (congestive) heart failure (5) Aortic stenosis, severe Current visit: No Status: Chronic Category: Medical Code(s): I35.0 - Nonrheumatic aortic (valve) stenosis (6) Anemia Current visit: No Status: Chronic Qualifiers: Anemia type: unspecified type Qualified Code(s): D64.9 - Anemia, unspecified Category: Medical Code(s): D64.9 - Anemia, unspecified (7) Carotid artery stenosis Current visit: No Status: Chronic Qualifiers: Laterality: bilateral Qualified Code(s): I65.23 - Occlusion and stenosis of bilateral carotid arteries Category: Medical Code(s): I65.29 - Occlusion and stenosis of unspecified carotid artery (8) Former smoker Current visit: No Status: Chronic Category: Social Hx Code(s): Z87.891 - Personal history of nicotine dependence (9) History of breast cancer Current visit: No Status: Chronic Category: Medical Code(s): Z85.3 - Personal history of malignant neoplasm of breast - Assessment and plan all Dx Assessment and Plan for all problems:: Awaiting urine and blood culture resul
--- NOTE | 2019-10-22 10:30 | SW/DCPLANNER ---
Addendum entered by Harper Roberts 10/27/19 09:37: Son has stated that patient is going to follow up MD visits tomorrow and MD stated at time of discharge they would discuss Home Health Services at follow up. Original Note: I have spoke with this patient regarding discharge plans. Patient and son were present during my visit. Patient resides in [place] with her son whom assist in caring for this patient. Son stated that this patient has a rolling walker, rollator, canes and home O2 at home. I spoke with patient and son regarding home health services at time of discharge. Patient is agreeable to home health services and has never received these services in the past. Patient does NOT have a preference as to which home health agency she uses. Once patient is medically stable for discharge I will set her up with home health (agency that provides CHF program). Patient could potentially discharge tomorrow.
--- NOTE | 2019-10-22 18:26 | PC.NURSE ---
Pt's room air sat at rest = 88%.
[2019-10-23] VITALS (8 sets, daily range): BP systolic 115–155; BP diastolic 51–74; PULSE 64–74; RESP 14–18; TEMP 36.4–37.1; O2SAT 92–97; BMI 29.9
--- NOTE | 2019-10-23 08:31 | HMH.ACPN2 ---
Internal Medicine - PN: Subj *Date: 10/23/19 *Time: 08:31 Interval history: Patient states she is feeling better this morning. She had a good night sleep and did eat some breakfast this morning. She still has some back pain but she states this is chronic. She denies any abdominal pain. Exam Vital signs and Labs for Last 24 Hours: Temp Pulse Resp BP Pulse Ox 97.6 F 74 17 155/74 H 95 10/23/19 07:36 10/23/19 07:36 10/23/19 07:36 10/23/19 07:36 10/23/19 07:36 Laboratory Results - last 24 hr 10/20/19 21:08: Urine Color Yellow, Urine Appearance Clear, Urine pH 7.0, Ur Specific [place] 1.015, Urine Protein Negative, Urine Glucose (UA) Negative, Urine Ketones Negative, Urine Blood 2+, Urine Nitrate Negative, Urine Bilirubin Negative, Urine Urobilinogen 0.2, Ur Leukocyte Esterase 3+ A, Urine RBC 3-5, Urine WBC 10-20, Ur Squamous Epith Cells 3-5, Urine Bacteria 1+ I & O for Last 24 hours: Intake & Output 10/20/19 10/21/19 10/22/19 10/23/19 11:59 11:59 11:59 11:59 Intake Total 1010 / 1010 2342 / 2342 1946 / 1946 Output Total 850 / 850 400 / 400 Balance 1010 / 1010 1492 / 1492 1546 / 1546 Weight 166 lb 9 oz 161 lb 2 oz 162 lb 7 oz Microbiology Reports for the Last 24 Hours: Microbiology 10/20/19 21:08 Urine,Clean Catch Urine Culture - Final Escherichia coli 10/20/19 20:30 Blood Blood Culture - Preliminary NO GROWTH AFTER 48 HOURS 10/20/19 20:30 Blood Blood Culture - Preliminary NO GROWTH AFTER 48 HOURS - Constitutional no acute distress - *Routine Respiratory Exam Present: crackles (faint bibasilar rales) - *Routine Cardiovascular Exam Present: RRR - *Routine Abdominal Exam Present: soft, normoactive bowel sounds. Absent: tenderness - *Routine Extremities Exam Absent: cyanosis, clubbing, edema - *Routine Skin Exam Present: warm. Absent: rash - *Routine Neurological Exam Present: alert, oriented X3 Assessment and Plan (1) E. coli UTI Current visit: Yes Status: Acute Category: Medical Code(s): N39.0 - Urinary tract infection, site not specified; B96.20 - Unspecified Escherichia coli [E. coli] as the cause of diseases classified elsewhere (2) COPD (chronic obstructive pulmonary disease) Current visit: Yes Status: Chronic Qualifiers: COPD type: unspecified COPD Qualified Code(s): J44.9 - Chronic obstructive pulmonary disease, unspecified Category: Medical Code(s): J44.9 - Chronic obstructive pulmonary disease, unspecified (3) Chronic renal impairment Current visit: Yes Status: Chronic Qualifiers: Chronic kidney disease stage: stage 3 (moderate) Qualified Code(s): N18.3 - Chronic kidney disease, stage 3 (moderate) Category: Medical Code(s): N18.9 - Chronic kidney disease, unspecified (4) Diastolic congestive heart failure Current visit: Yes Status: Chronic Qualifiers: Heart failure chronicity: acute on chronic Qualified Code(s): I50.33 - Acute on chronic diastolic (congestive) heart failure Category: Medical Code(s): I50.30 - Unspecified diastolic (congestive) heart failure (5) Aortic stenosis, severe Current visit: No Status: Chronic Category: Medical Code(s): I35.0 - Nonrheumatic aortic (valve) stenosis (6) Anemia Current visit: No Status: Chronic Qualifiers: Anemia type: unspecified type Qualified Code(s): D64.9 - Anemia, unspecified Category: Medical Code(s): D64.9 - Anemia, unspecified (7) Carotid artery stenosis Current visit: No Status: Chronic Qualifiers: Laterality: bilateral Qualified Code(s): I65.23 - Occlusion and stenosis of bilateral carotid arteries Category: Medical Code(s): I65.29 - Occlusion and stenosis of unspecified carotid artery (8) Former smoker Current visit: No Status: Chronic Category: Social Hx Code(s): Z87.891 - Personal history of n
--- NOTE | 2019-10-23 10:01 | US_ITS ---
PROCEDURE: US PELVIC CLINICAL INDICATION: recurrent UTI Recurring UTIs, history of bladder stones COMPARISON: No exams were available for comparison FINDINGS: There is some echogenic debris noted within the urinary bladder with mild thickening posteriorly. Full bladder volume is 1404 mL. Postvoid bladder volume is 1249 mL. The uterus is 5 x 3 x 4 cm having an unremarkable appearance. Unremarkable appearing adnexa. The uterus is not well delineated. No cul-de-sac fluid. IMPRESSION: 1. Urinary bladder distension with some internal debris with prominent postvoid residual volume 2. No obvious pelvic mass Dictated b Dmitry Martinez MD 10/23/2019 16:58 Dmitry Martinez MD in OV 10/23/2019 16:58
--- NOTE | 2019-10-23 10:18 | PC.NURSE ---
Notified Ebony consult on pt.
--- NOTE | 2019-10-23 12:58 | PC.NURSE ---
Pt leaving department with radiology personnel for U/S.
--- NOTE | 2019-10-23 13:48 | PC.NURSE ---
Pt arrived back to room 203 at 1328, pt denies need to void but is aware of urinary retention and reports that she will try to void. Pt ambulated to BR with stand by assist and reported voiding a large amount. Hat was in the toilet for accurate measurement but pt was back on the toilet too far to catch urine. Yellow urine noted in toilet. Pt assisted back to bed, bed locked and in lowest position with side rails up x2, call light within reach.
--- NOTE | 2019-10-23 14:00 | HMH.CONS ---
*Admission Date: 10/20/19 *Reason for consult:: Recurring urinary tract infections/history of bladder stones *History of present illness: Patient is a 74-year-old white female who was admitted to the hospital on October 19 reporting that she had some general malaise and confusion, shortness of breath and fever. Labs indicated a white count of 9.2 and a creatinine of 1.4. Her urinalysis showed 2+ blood and 3+ leukocytes with 1+ bacteria. The urine cultures growing out E. coli. Patient also with evidence of congestive heart failure and effusion. She is on IV Invanz. Her son states that she has had some recurring urinary tract infections through the years and she usually cause her doctor for prescription of antibiotics. She previously followed with a primary care physician out of the [facility]. She now lives with her son. She was admitted to [facility] in May and a CT scan showed some bladder distention and a couple of small stones in her left kidney but no evidence of obstruction. Her urine culture then was positive for Aerococcus.. A bladder ultrasound was performed today and post void films show incomplete bladder emptying. Patient is ambulatory and she has no history of diabetes. [facility] History Medical History: Reports:: Atherosclerotic Heart Disease, Cancer (breast), Carotid Stenosis, Congestive Heart Failure, Chronic Obstructive Pulmonary Disease (COPD), Coronary Artery Disease, Depression, Heart Murmur, Home Oxygen, Hyperlipidemia, Hypertension, Lung Disease, Pulmonary Embolism, Renal Disease, Seizures Denies:: Diabetes Mellitus Type 1, Diabetes Mellitus Type 2, MRSA *Have you ever received a pneumonia vaccine?: Yes *Have you received a flu vaccine this season?: Yes Other Medical History: Reports: Anemia, Arthritis, Cataracts, Hypothyroidism, Thyroid Disease Laterality Cases: Bilateral: Mastectomy Other Surgeries: Yes: Cancer Surgery, Cardiac Catheterization Amputation: No Fractures: Yes (lt arm, rt wrist) - *Social History Last grade of school completed: High school graduate Smoking Status: Former smoker Tobacco Type: cigarettes #Yrs smoked (if former smoker): 40 Alcohol Intake: never Substance Use Type: denies use *Occupational Status:: retired Housing: house Household Members: family *Travel in the last 8 weeks: None - Psychiatric History Pschychiatric History:: Reports:: Depression Family Hx:: Cancer, Hypertension Review of Systems - Review of Systems Review of systems:: pertinent systems reviewed and negative unless documented below - *Neurologic Reports confusion, Reports headache(s), Reports weakness, Denies abnormal walking, Denies seizure-like activity, Denies dizziness, Denies localized weakness, Denies seizure-like activity Meds Home Medications Medication Instructions Recorded Confirmed Type Clopidogrel Bisulfate [Plavix 75mg 75 mg PO DAILY 01/20/19 10/21/19 History Tab] ferrous sulfate 325 mg (65 mg 325 mg PO BID 04/24/19 10/21/19 History iron) tablet gabapentin 100 mg capsule 100 mg PO BID cap 04/24/19 10/21/19 History levothyroxine 88 mcg tablet 88 mcg PO DAILY 04/24/19 10/21/19 History mecobalamin (vitamin B12) 1,000 1,000 mcg PO DAILY 04/24/19 10/21/19 History mcg chewable tablet sertraline 100 mg tablet 150 mg PO DAILY 04/24/19 10/21/19 History polyethylene glycoL 3350 [Miralax 17 gm PO DAILY 05/29/19 10/21/19 History 17gm Packet] furosemide 20 mg tablet 20 mg PO DAILYP PRN tab 10/16/19 10/21/19 History ipratropium 0.5 mg-albuterol 3 mg 3 ml INHALATION TID ml 10/16/19 10/21/19 History (2.5 mg base)/3 mL nebulization soln Isosorbide Mononitrate [Imdur 60mg 60 mg PO DAILY 10/20/19 10/21/19 History ER tablet] Metoprolol Succinate [Toprol XL 25 mg PO BID 10/20/19 10/21/19 History 25mg tablet] Rosuvastatin Calcium 20 mg PO DAILY 10/20/19 10/21/19 History Verapamil HCl [Calan SR 180mg 180 mg PO DAILY 10/20/19 10/21/19 History tablet] lisinopri
[2019-10-23 14:39] LABS: Microscopic, Urine URINE MICROSCOPIC (MICROSCOPIC)
[2019-10-23 14:44] LABS: Appearance,Urine CLEAR (Clear); Bilirubin,Urine Negative (Negative); Blood, Urine Negative (Negative); Color,Urine YELLOW (Yellow); Glucose,Urine (UA) Negative (Negative); Ketones,Urine Negative (Negative); Leukocyte Esterase,Urine 1+ (Negative); Nitrate,Urine Negative (Negative); PH,Urine 6.5 (5.0-8.5); Protein,Urine Negative (Negative); Urobilinogen,Urine 0.2 EU/dl (0.2)
[2019-10-23 14:52] LABS: Amorphous Sediment,Urine Trace /lpf; RBC,Urine Occasional #/hpf (0-3); Squamous Epithelial Cell,Urine Occasional #/hpf (0-5); WBC,Urine 20-50 #/hpf (0-3)
--- NOTE | 2019-10-23 17:05 | PC.NURSE ---
RN reassessment completed at 1650, pt lying in bed watching television and talking with her son. Pt recently medicated with tylenol for c/o pain in her upper back. Pt reported at the time that pain was dull and a 3 on a 0-10 scale. Pt reports that pain has not resolved and has spread from her upper back around to her LUQ. Pt reports that pain is dull, constant and a 5 on a 0-10 scale. Pt reports I stretched and am thinking that is where the pain came from. Will notify MD during evening rounds visit for any new orders. Lung sounds CTA in upper lobes, faint crackles heard in posterior bases. Pt denies any SOA at present time, 3L NC used throughout the shift and pt has received scheduled breathing treatments. IV patent to left forearm and infusing without difficulty. F/C patent and draining clear, yellow urine at bedside. Approx 200 ml noted in collection bag at time of reassessment. Bed locked and in lowest position, side rails up x2, call light within reach, will continue to monitor.
--- NOTE | 2019-10-23 20:46 | PC.NURSE ---
Pt's room air sat at rest = 5.
[2019-10-24] VITALS (7 sets, daily range): BP systolic 138–173; BP diastolic 61–77; PULSE 63–80; RESP 14–17; TEMP 36.7–37.1; O2SAT 95–97; BMI 29.9
--- NOTE | 2019-10-24 04:01 | PC.NURSE ---
Pt has slept well this shift. Moderate loose bowel movement this shift. Denies pain/soa. Non-pitting edema noted in lower legs. VSS. Lung sounds WNL, heart sounds RRR, active bowel sounds. Urine continues to be red with small blood clots. UOP adequate.
--- NOTE | 2019-10-24 08:33 | HMH.ACPN2 ---
Internal Medicine - PN: Subj *Date: 10/24/19 *Time: 08:33 Interval history: Patient states she is feeling well this morning. She has minimal back pain but no other pain. She states slept off and on last night. She is eating breakfast this morning. Exam Vital signs and Labs for Last 24 Hours: Temp Pulse Resp BP Pulse Ox 98.0 F 76 17 173/70 H 95 10/24/19 04:00 10/24/19 06:22 10/24/19 04:00 10/24/19 04:00 10/24/19 06:22 Laboratory Results - last 24 hr 10/23/19 14:30: Urine Color Yellow, Urine Appearance Clear, Urine pH 6.5, Ur Specific [place] 1.010, Urine Protein Negative, Urine Glucose (UA) Negative, Urine Ketones Negative, Urine Blood Negative, Urine Nitrate Negative, Urine Bilirubin Negative, Urine Urobilinogen 0.2, Ur Leukocyte Esterase 1+ A, Urine RBC Occasional, Urine WBC 20-50, Ur Squamous Epith Cells Occasional, Amorphous Sediment Trace, Urine Bacteria None I & O for Last 24 hours: Intake & Output 10/21/19 10/22/19 10/23/19 10/24/19 11:59 11:59 11:59 11:59 Intake Total 1010 / 1010 2342 / 2342 1946 / 1946 1302 / 1302 Output Total 850 / 850 400 / 400 2200 / 2200 Balance 1010 / 1010 1492 / 1492 1546 / 1546 -898 / -898 Weight 166 lb 9 oz 161 lb 2 oz 162 lb 7 oz 162 lb 6.985 oz Microbiology Reports for the Last 24 Hours: Microbiology 10/20/19 21:08 Urine,Clean Catch Urine Culture - Final Escherichia coli - Constitutional no acute distress - *Routine Respiratory Exam Present: CTA bilaterally - *Routine Cardiovascular Exam Present: RRR - *Routine Abdominal Exam Present: soft, normoactive bowel sounds. Absent: tenderness - *Routine Extremities Exam Absent: cyanosis, clubbing, edema - *Routine Skin Exam Present: warm. Absent: rash - *Routine Neurological Exam Present: alert, oriented X3 Assessment and Plan (1) E. coli UTI Current visit: Yes Status: Acute Category: Medical Code(s): N39.0 - Urinary tract infection, site not specified; B96.20 - Unspecified Escherichia coli [E. coli] as the cause of diseases classified elsewhere (2) COPD (chronic obstructive pulmonary disease) Current visit: Yes Status: Chronic Qualifiers: COPD type: unspecified COPD Qualified Code(s): J44.9 - Chronic obstructive pulmonary disease, unspecified Category: Medical Code(s): J44.9 - Chronic obstructive pulmonary disease, unspecified (3) Chronic renal impairment Current visit: Yes Status: Chronic Qualifiers: Chronic kidney disease stage: stage 3 (moderate) Qualified Code(s): N18.3 - Chronic kidney disease, stage 3 (moderate) Category: Medical Code(s): N18.9 - Chronic kidney disease, unspecified (4) Diastolic congestive heart failure Current visit: Yes Status: Chronic Qualifiers: Heart failure chronicity: acute on chronic Qualified Code(s): I50.33 - Acute on chronic diastolic (congestive) heart failure Category: Medical Code(s): I50.30 - Unspecified diastolic (congestive) heart failure (5) Aortic stenosis, severe Current visit: No Status: Chronic Category: Medical Code(s): I35.0 - Nonrheumatic aortic (valve) stenosis (6) Anemia Current visit: No Status: Chronic Qualifiers: Anemia type: unspecified type Qualified Code(s): D64.9 - Anemia, unspecified Category: Medical Code(s): D64.9 - Anemia, unspecified (7) Carotid artery stenosis Current visit: No Status: Chronic Qualifiers: Laterality: bilateral Qualified Code(s): I65.23 - Occlusion and stenosis of bilateral carotid arteries Category: Medical Code(s): I65.29 - Occlusion and stenosis of unspecified carotid artery (8) Former smoker Current visit: No Status: Chronic Category: Social Hx Code(s): Z87.891 - Personal history of nicotine dependence (9) History of breast cancer Current visit: No Status: Chronic Category: Medical Code(s): Z85.3 - Personal history of malignant neoplasm of [place]
--- NOTE | 2019-10-24 20:41 | PC.NURSE ---
PATIENT A&O X4, LUNGS CLEAR, PULSES EQUAL. THIS RN PROVIDED D/C INSTRUCTIONS TO PATIENT AND SON. THIS RN EDUCATED PATIENT AND SON HOW TO EMPTY ANN, TO WASH HANDS BEFORE AND AFTER USE AND TO CLEAN TUBING DAILY. THIS RN PROVIDED HANDOUT FOR ANN. THIS RN DEMONSTRATED HOW TO CLEAN TUBING, PATIENT VERBALIZED AN UNDERSTANDING. PATIENT AND SON WERE ADVISED TO CALL DR. BRANDT'S OFFICE ON Sunday TO SET UP AN APPOINTMENT. PATIENT AND SON WERE ADVISED TO CALL DR. LAINEZ'S OFFICE TO SET UP A TIME FOR 10/28/2019. SON AND PATIENT VERBALIZED AN UNDERSTANDING. NO OTHER CONCERNS AT THIS TIME.
--- NOTE | 2019-10-27 15:53 | HMH.DCSUM ---
General - General Admission date:: 10/21/19 Discharge date: 10/24/19 HPI HPI: Ms. Bedoya is a 74-year-old female with a rather extensive medical history to include diastolic heart failure, pulmonary hypertension, aortic stenosis, hypertension, O2 dependent COPD, chronic kidney disease, arthritis, hyperlipidemia, breast cancer, depression, carotid artery disease, anemia, macular degeneration who presented to [facility] emergency room with progressive shortness of breath and fever. Patient stated that she had not felt well for several days but yesterday was the worst. She stated she could not catch her breath. She described a nonproductive cough and inability to produce sputum. She does use neb treatments at home but these did not help. She was using her oxygen continuously. She also described in the emergency room some vomiting but denied this with this assessment. She was noted to be confused. She did not feel she had been eating or drinking as well. She denied chest pain at this point, palpitations, nausea and vomiting. Chest x-ray revealed congestive heart failure with small bilateral effusions. With evaluation in the emergency room white blood cell count initially was 9200 with a hemoglobin of 11.7 and hematocrit of 35. Blood chemistries with normal electrolytes; BUN 16 with a creatinine of 1.4 and GFR of 37. Troponin I's were normal x3. Liver function studies were normal. Urine did show 2+ blood, 3+ leukoesterase, and 1+ urine bacteria. COVID/19 PCR was negative. ABGs in the emergency room revealed a pH of 7.50, PCO2 of 31.2, PO2 of 83.3 and a bicarb of 23.9. With evaluation in the emergency room fever was noted to be 101.9 on admission. Blood pressure was elevated. She was given 500 mL of IV fluids And admitted for further evaluation treatment. In the a.m. patient stated she did not feel much better and still was unabe to produce sputum. Hospital Course Hospital Course: After admission patient was given 40 mg of Lasix and started on duo nebs. She was also restarted back on her Imdur 60 mg for elevated blood pressure as well as Invanz. Patient clinically improved with less breathing difficulties. Urine culture was positive for E. coli sensitive to the Invanz. Due to her history of bladder stones ultrasound of the pelvic area was ordered. She was also seen by Dr. Veloz, urologist, with impression of recurrent urinary tract infections. Previous CT scan and current ultrasound indicated incomplete bladder emptying. He felt like this was the source of her recurrent infections. He discussed with her options depending on the amount of residual that she was holding which included catheterization versus timed voiding and Crede maneuver and possibly prophylactic antibiotics. On 10/24/2019 Mcd[address] catheter was in place draining some blood-tinged urine. She was feeling well with minimal back pain. She was able to eat without difficulties. She was requesting discharge. Patient was discharged to home in stable and satisfactory condition with Mcdonald catheter in place. She was to follow-up in the office of [facility] the following week and with Dr. Parsons. Medications as per medication reconciliation sheet to include Cefdinir x 7 days.. Objective Vital signs: Temp Pulse Resp BP Pulse Ox 98.3 F 68 14 143/62 H 96 10/24/19 19:30 10/24/19 19:30 10/24/19 19:30 10/24/19 19:30 10/24/19 19:30 Narrative: Exam Vital signs and Labs for Last 24 Hours: Temp Pulse Resp BP Pulse Ox 98.0 F 76 17 173/70 H 95 10/24/19 04:00 10/24/19 06:22 10/24/19 04:00 10/24/19 04:00 10/24/19 06:22 Laboratory Results - last 24 hr 10/23/19 14:30: Urine Color Yellow, Urine Appearance Clear, Urine pH 6.5, Ur Specific [place] 1.010, Urine Protein Negative, Urine Glucose (UA) Negative, Urine Ketones Negative, Urine Blood Negative, Urine Nitrate Negative, Urine Bilirubin Negative, Urine Urobilinogen 0.2, Ur Michelle
== END 2019-10-24 20:39 | disposition home or self-care (01) | DRG 689 ==
LOC: ER 22:49 → 2ND 10-21 00:48
PROVIDERS: Admitting Provider Family Medicine; Emergency Provider Emergency Medicine; PCP Family Medicine; Visit Provider Family Medicine
DX: N39.0 Urinary tract infection, site not specified (principal); I50.33 Acute on chronic diastolic (congestive) heart failure; I13.0 Hypertensive heart and chronic kidney disease with heart failure and stage 1 through stage 4 chronic kidney disease, or unspecified chronic kidney disease; E03.9 Hypothyroidism, unspecified; I35.0 Nonrheumatic aortic (valve) stenosis; B96.20 Unspecified Escherichia coli [E. coli] as the cause of diseases classified elsewhere; I27.20 Pulmonary hypertension, unspecified; J44.9 Chronic obstructive pulmonary disease, unspecified; Z99.81 Dependence on supplemental oxygen; I65.23 Occlusion and stenosis of bilateral carotid arteries; Z79.02 Long term (current) use of antithrombotics/antiplatelets; D64.9 Anemia, unspecified; Z87.891 Personal history of nicotine dependence; Z85.3 Personal history of malignant neoplasm of breast; I25.10 Atherosclerotic heart disease of native coronary artery without angina pectoris; R33.9 Retention of urine, unspecified; Z86.711 Personal history of pulmonary embolism; Z90.13 Acquired absence of bilateral breasts and nipples; N18.3 Chronic kidney disease, stage 3 (moderate)
CPT/HCPCS: 36415; 71046; 76856; 80048; 80053; 81001; 82803; 83605; 84484; 85007; 85025; 87040; 87086; 87088; 87186; 87581; 87633; 87798; 93005; 94640; 94761; 96365; 96367; 99285; J1335

== ENCOUNTER → 2019-10-29 12:19 | Outpatient (CLI) | payer MEDICARE, SELFPAY ==
[2019-10-29 12:23] LABS: Adenovirus F 40/41, stool Not Detected (NotDetected); Astrovirus Not Detected (NotDetected); Campylobacter Not Detected (NotDetected); Clostridium Difficile A/B, PCR Not Detected (NotDetected); Cryptosporidium Not Detected (NotDetected); Cyclospora Cayetanesis Not Detected (NotDetected); Entamoeba histolytica Not Detected (NotDetected); Enteroaggregative E coli Not Detected (NotDetected); Enteropathogenic E coli Not Detected (NotDetected); Enterotoxigenic E coli Not Detected (NotDetected); Giardia lamblia Not Detected (NotDetected); Norovirus Not Detected (NotDetected); Plesimonas Shigalloides, PCR Not Detected (NotDetected); Rotavirus A Not Detected (NotDetected); Salmonella, PCR Not Detected (NotDetected); Sapovirus Not Detected (NotDetected); Shiga-like toxin E coli Not Detected (NotDetected); Shigella Enterovasive E coli Not Detected (NotDetected); Vibrio Cholerae Not Detected (NotDetected); Vibrio, PCR Not Detected (NotDetected); Yersinia Entercolitica, PCR Not Detected (NotDetected)
== END ==
PROVIDERS: Visit Provider Family Medicine
DX: R19.7 Diarrhea, unspecified (principal)
CPT/HCPCS: 87506

== ENCOUNTER → 2019-10-30 11:30 | Outpatient (CLI) | payer MEDICARE, SELFPAY ==
--- NOTE | 2019-10-30 11:31 | CA_ITS ---
APPROVED REPORT [place] Nurse: MARJORIE Laterality: Bilateral Study Quality: Adequate Indications: VALERIA Doppler Spectral Velocity Analysis dICA (R) 76.00/18.50 cm/s dICA (L) 65.70/16.20 cm/s Cyndi (R) 96.20/22.80 cm/s Cnydi (L) 123.50/27.50 cm/s pICA (R) 104.70/25.30 cm/s pICA (L) 125.70/22.10 cm/s dCCA (R) 69.10/10.30 cm/s dCCA (L) 68.20/10.10 cm/s pCCA (R) 75.90/11.80 cm/s pCCA (L) 63.80/11.20 cm/s Vert (R) 106.70/15.20 cm/s Vert (L) 52.90/10.60 cm/s ICA/CCA 1.50 ICA/CCA 1.80 Findings Duplex evaluation demonstrates stenosis of the right proximal internal carotid artery in the range of 50-69% with PSV =140 cm/sec, EDV <100 cm/sec, and IC/CC Ratio <4.0.Duplex evaluation demonstrates stenosis of the left proximal internal carotid artery in the range of 20-49% with PSV <140 cm/sec, EDV <100 cm/sec, and IC/CC Ratio <4.0.Antegrade flow seen bilateral vertebral arteries. No significant change from exam of 01/23/19 Conclusion Duplex evaluation demonstrates stenosis of the right proximal internal carotid artery in the range of 50-69% with PSV =140 cm/sec, EDV <100 cm/sec, and IC/CC Ratio <4.0.Duplex evaluation demonstrates stenosis of the left proximal internal carotid artery in the range of 20-49% with PSV <140 cm/sec, EDV <100 cm/sec, and IC/CC Ratio <4.0.Antegrade flow seen bilateral vertebral arteries. No significant change from exam of 01/23/19 Electronically signed by : Dmitry Martinez MD 10/30/2019 16:45:30
== END ==
PROVIDERS: PCP Family Medicine; Visit Provider Internal Medicine Cardiovascular Disease
DX: I25.10 Atherosclerotic heart disease of native coronary artery without angina pectoris; I65.23 Occlusion and stenosis of bilateral carotid arteries; R06.02 Shortness of breath; I11.0 Hypertensive heart disease with heart failure; I27.20 Pulmonary hypertension, unspecified; E78.2 Mixed hyperlipidemia
CPT/HCPCS: 93880

== ENCOUNTER → 2019-12-12 10:30 | Outpatient (CLI) | payer MEDICARE, SELFPAY ==
--- NOTE | 2019-12-12 10:30 | CA_ITS ---
APPROVED REPORT EXAM: Comprehensive 2D, Doppler, and color-flow Echocardiogram Special Effects Makeup Artist: Michelle Hammonds RVT Ht: 5 ft 2 in Wt: 168lbs BSA: 1.78 BP: 126/48 mmHg Indications: HTN,,PHTN,CHF,MURMUR,HTN,COPD,HLD,SOA,EX SMOKER 2D Dimensions LVOT 0.96 cm (M/F) 1.5-2.5 M-Mode Dimensions RVDd 3.36 cm (0.9-2.6) LVDd 4.16 cm (3.5-5.7) LVDs 2.68 cm (3.5-5.7) IVSd 1.27 cm (0.6-1.1) PWd 0.76 cm (0.6-1.1) EF (Teich) 65.50% FS 35.60% EDV (Teich) 76.80 mL ESV (Teich) 26.50 mL LV Diastology E/A Ratio 1.59 Aortic Valve LVOT Max 279.00 (70-110 cm/s) LVOT VTI 57.46 cm Mitral Valve MV A Velocity 79.00 (40-130 cm/s) Left Ventricle Left atrium is mildly enlarged, left ventricle is normal size, mild concentric left ventricular hypertrophy, visually estimated ejection fraction 55% with no regional wall motion abnormality, grade 2 diastolic dysfunction seen with tissue Doppler evidence of raise left atrial pressure. Right Ventricle Right atrium and right ventricle are mildly enlarged with normal contractility. Aortic Valve Aortic valve is thickened and calcified with restriction in the leaflet mobility, the mean gradient and the aortic valve area is not accurately calculated in this study. A repeat study with better Doppler technique is recommended. Mitral Valve Mitral valve has mitral annular calcification, leaflets are minimally thickened, there is no mitral stenosis, there is mild mitral regurgitation. Tricuspid Valve Tricuspid valve is grossly normal, there is mild tricuspid regurgitation, tricuspid regurgitation jet velocity is inadequate for calculation of the right ventricular systolic pressure. Pulmonic Valve Pulmonic valve is poorly visualized. Great Vessels Aortic root is normal size. Pericardium No significant pericardial effusion noted. Conclusion 1. Mild biatrial enlargement, normal left ventricular size, mild concentric left ventricular hypertrophy, visually estimated ejection fraction 55% with no regional wall motion abnormality, grade 2 diastolic dysfunction seen with tissue Doppler evidence of raise left atrial pressure. 2. Thickened and calcified aortic valve there is aortic stenosis present, which is difficult to quantify and this is study as described above, repeat study with better Doppler technique is recommended. 3. Mild mitral and tricuspid regurgitation. 4. No significant pericardial effusion noted. Electronically signed by : Terrance Orellana, 12/12/2019 13:24:32
== END ==
PROVIDERS: PCP Family Medicine; Visit Provider Urology
DX: E78.2 Mixed hyperlipidemia (principal); I27.20 Pulmonary hypertension, unspecified; I35.0 Nonrheumatic aortic (valve) stenosis; I50.33 Acute on chronic diastolic (congestive) heart failure; I65.23 Occlusion and stenosis of bilateral carotid arteries; R06.02 Shortness of breath; I11.0 Hypertensive heart disease with heart failure
CPT/HCPCS: 93306

== ENCOUNTER → 2020-01-02 10:21 | Outpatient (CLI) | payer MEDICARE, SELFPAY ==
--- NOTE | 2020-01-02 10:23 | CA_ITS ---
APPROVED REPORT EXAM: Comprehensive 2D, Doppler, and color-flow Echocardiogram Lapel Padder: Ivis Guan CRT Ht: 5 ft 2 in Wt: 168lbs BSA: 1.78 BP: 120/48 mmHg Indications: Congestive Heart Failure, COPD, Hypertension/HDD, , PHTN, SOB ADDITIONAL AORTIC IMAGES. 2D Dimensions LVOT 1.36 cm (M/F) 1.5-2.5 Aortic Valve LVOT Max 215.00 (70-110 cm/s) LVOT VTI 54.87 cm AoV Peak Aayush. 333.00 (50-130 cm/s) AO Peak GR. 44.30 mmHg AO Mean GR. 24.10 (<5 mmHg) AO VTI 77.18 (18-25 cm) ROXI (VTI) 1.03 (2.5-4.5 cm2) Left Ventricle Left atrium is moderately enlarged, left ventricle is normal size, mild concentric left ventricular hypertrophy, visually estimated ejection fraction of 55% with no regional wall motion abnormality. Diastolic parameters are inconclusive. Right Ventricle Right atrium and right ventricle are normal size and contractility. Aortic Valve Aortic valve is thickened and calcified with severe restriction to leaflet mobility, mean gradient across aortic valve is 26 mmHg, valve area is calculated 0.9 cm, represents severe aortic stenosis, there is no aortic insufficiency. Mitral Valve Mitral valve leaflets are minimally thickened, there is no mitral stenosis, there is mild mitral regurgitation. Tricuspid Valve Tricuspid valve is grossly normal, there is mild tricuspid regurgitation, tricuspid regurgitation jet velocity is inadequate for calculation of the right ventricular systolic pressure. Pulmonic Valve Pulmonic valve is poorly visualized. Great Vessels Aortic root is normal size. Pericardium No significant pericardial effusion noted. Conclusion 1. Moderately enlarged left atrium, normal left ventricular size, mild concentric left ventricular hypertrophy, visually estimated ejection fraction 55% with no regional wall motion abnormality, diastolic parameters are inconclusive. 2. Thickened and calcified aortic valve with valve area 1.9 cm??? impression severe aortic stenosis, there is no aortic insufficiency. 3. Mild mitral and tricuspid regurgitation. 4. No significant pericardial effusion noted. Electronically signed by : Terrance Orellana, 01/02/2020 13:24:56
== END ==
PROVIDERS: PCP Family Medicine; Visit Provider Internal Medicine Cardiovascular Disease
DX: I27.20 Pulmonary hypertension, unspecified (principal)

== ENCOUNTER → 2020-03-22 13:13 | Outpatient (CLI) | payer MEDICARE, SELFPAY | PROVIDERS: Visit Provider Family Medicine | DX: D50.8 Other iron deficiency anemias (principal) | CPT/HCPCS: 36415 ==

== ENCOUNTER 2020-04-06 13:16 | Emergency (ER) | payer MEDICARE, SELFPAY ==
[2020-04-06] VITALS (8 sets, daily range): BP systolic 152–176; BP diastolic 51–68; PULSE 58–68; RESP 16–18; TEMP 36.2–36.6; O2SAT 95–100; BMI 22.3
[2020-04-06 15:35] LABS: Basophils # 0.1 K/mm3 (0-0.2); Basophils % 0.7 % (0.1-2.0); Eosinophils # 0.1 K/mm3 (0.0-0.4); Eosinophils % 1.7 % (0.1-12.0); Hemoglobin 9.2 g/dL (12.2-16.2); Lymphocytes # 1.3 K/mm3 (0.7-4.5); Lymphocytes % 16.1 % (10-50); Mean Corpuscular HGB Conc 30.5 g/dL (31.8-35.4); Mean Corpuscular Hemoglobin 28.2 pg (27.0-31.2); Mean Corpuscular Volume 92.6 fl (81-99); Mean Platelet Volume 8.8 fl (7.4-10.4); Monocytes # 0.5 K/mm3 (0.1-1.0); Monocytes % 6.5 % (1.7-9.3); Neutrophils # 6.2 K/mm3 (1.8-7.8); Platelet Count 188 K/mm3 (142-424); Red Blood Count 3.24 M/mm3 (4.20-5.40); Red Cell Distribution Width 14.6 % (11.5-17.5); White Blood Count 8.2 K/mm3 (4.8-10.8)
[2020-04-06 15:37] LABS: Chloride 102 mmol/L (98-107); Sodium 140 mmol/L (136-145)
[2020-04-06 15:39] LABS: Alanine Aminotransferase 8 U/L (12-78); Alkaline Phosphatase 56 U/L (38-126); Aspartate Amino Transferase 24 U/L (14-36); Bilirubin,Total 0.4 mg/dl (0.2-1.3); Blood Urea Nitrogen 17 mg/dl (7-17); Carbon Dioxide 34 mmol/L (22.0-30.0); Creatinine Clearance Estimated 31 mL/min (50-200); Estimated Glomerular Filt Rate 36 ml/min (>60); GFR (African American) 44 ML/MIN (>60)
[2020-04-06 15:40] LABS: Albumin Level 3.7 g/dl (3.5-5.0); Albumin/Globulin Ratio 1.2 (1.1-1.8); Calcium 9.2 mg/dl (8.4-10.2); Globulin 3.1 g/dL (1.3-3.2); Glucose 108 mg/dl (74-100); Total Protein,Serum 6.8 g/dl (6.3-8.2)
--- NOTE | 2020-04-06 15:45 | HMH.EDGENADL ---
ED Disposition Clinical Impression: Seizure-like activity Urinary tract infection Qualifiers: Urinary tract infection type: acute cystitis Hematuria presence: without hematuria Qualified Code(s): N30.00 - Acute cystitis without hematuria Disposition: Home, Self-Care Condition on Discharge: Good Instructions: DI for Seizure (Not Epilepsy/Seizure Disorder), DI for Urinary Tract Infection (UTI) Additional Instructions: Additional instructions for URINARY TRACT INFECTION: Take antibiotic as prescribed. See your physician in 2-3 days for follow up and culture results. Return immediately if you have an uncontrollable fever greater than 102 degrees, severe back or abdominal pain, inability to urinate, or repetitive vomiting. Additional instructions for SEIZURE OR LOSS OF CONSCIOUSNESS/POSSIBLE SEIZURE: NO DRIVING, BIKE RIDING, SWIMMING, TUB BATHING, LADDERS UNTIL CLEARED BY DOCTOR. RETURN IF SEIZURE RECURS. NO ALCOHOL OR STREET DRUGS. See your physician as soon as possible for follow-up. Return to the emergency department if seizure recurs. Prescriptions: Cefdinir [Omnicef 300mg Capsule] 300 mg PO BID #20 cap Transmission Status: Pending to [email or web address] #[id number] Referrals: Anita Joel MD [Primary Care Provider] - - Critical Care Critical Care Time: No Attestation: On 04/06/20, the high probability of a clinically significant, sudden or life threatening deterioration of the following system(s) required my full and direct attention, intervention and personal management. The time I documented below is in addition to time spent performing reported procedures but includes the following listed in this critical care notation. Medical Decision Making - Doroteo Inquiry Pt receiving controlled substance: No Vital Signs: 04/06/20 13:17 04/06/20 15:00 04/06/20 15:31 Temperature 97.2 F L Temperature Source Oral Pulse Rate [Right Radial] 66 67 61 Respiratory Rate 18 Blood Pressure [Right Arm] 152/51 H 152/51 H 171/66 H Blood Pressure Mean [Right Arm] 84 84 101 Blood Pressure Source [Right Arm] Automatic Cuff Automatic Cuff Automatic Cuff Blood Pressure Position [Right Arm] Sitting Sitting Sitting 02 Sat by Pulse Oximetry 97 98 98 Oxygen Delivery Method Room Air Room Air Nasal Cannula Oxygen Flow Rate (LPM) 3 04/06/20 16:01 04/06/20 16:30 04/06/20 17:42 Temperature Temperature Source Pulse Rate [Right Radial] 64 63 58 L Respiratory Rate Blood Pressure [Right Arm] 168/64 H 153/64 H 152/54 H Blood Pressure Mean [Right Arm] 98 93 86 Blood Pressure Source [Right Arm] Automatic Cuff Automatic Cuff Automatic Cuff Blood Pressure Position [Right Arm] Sitting Sitting Sitting 02 Sat by Pulse Oximetry 97 95 96 Oxygen Delivery Method Nasal Cannula Nasal Cannula Nasal Cannula Oxygen Flow Rate (LPM) 3 3 3 04/06/20 19:07 Temperature Temperature Source Pulse Rate [Right Radial] 63 Respiratory Rate Blood Pressure [Right Arm] 171/68 H Blood Pressure Mean [Right Arm] 102 Blood Pressure Source [Right Arm] Automatic Cuff Blood Pressure Position [Right Arm] Sitting 02 Sat by Pulse Oximetry 100 Oxygen Delivery Method Nasal Cannula Oxygen Flow Rate (LPM) 3 - Lab Data Lab Results 04/06/20 13:22: WBC 8.2, RBC 3.24 L, Hgb 9.2 L, Hct 30.0 L, MCV 92.6, MCH 28.2, MCHC 30.5 L, RDW 14.6, Plt Count 188, MPV 8.8, Neut % (Auto) 75.0, Lymph % (Auto) 16.1, [place] % (Auto) 6.5, Eos % (Auto) 1.7, Baso % (Auto) 0.7, Neut # (Auto) 6.2, Lymph # (Auto) 1.3, [place] # (Auto) 0.5, Eos # (Auto) 0.1, Baso # (Auto) 0.1 04/06/20 13:22: Sodium 140, Potassium 5.0, Chloride 102, Carbon Dioxide 34 H, Anion Gap 9.0, BUN 17, Creatinine 1.40 H, Estimated Creat Clear 31, Estimated GFR 36 L, Est GFR ( Amer) 44 L, Glucose 108 H, Calcium 9.2, Total Bilirubin 0.4, AST 24, ALT 8 L, Alkaline Phosphatase 56, Troponin I < 0.01, Total Protein 6.8, Albumin 3.7, Globulin 3.1, Albumin/Globulin Ratio 1.2 04/06/20 13:22: SARS-CoV-2 IgG
[2020-04-06 15:47] LABS: Microscopic, Urine URINE MICROSCOPIC (MICROSCOPIC)
[2020-04-06 15:49] LABS: Appearance,Urine SL CLOUDY (Clear); Bilirubin,Urine Negative (Negative); Blood, Urine TRACE-L (Negative); Color,Urine YELLOW (Yellow); Glucose,Urine (UA) Negative (Negative); Ketones,Urine Negative (Negative); Leukocyte Esterase,Urine 2+ (Negative); Nitrate,Urine Negative (Negative); Protein,Urine Negative (Negative); Urobilinogen,Urine 0.2 EU/dl (0.2)
[2020-04-06 15:54] LABS: Troponin I < 0.01 ng/ml (0.00-0.034)
[2020-04-06 16:01] LABS: Coronavirus 19 IgG Antibody Negative (Negative); Coronavirus 19 IgM Antibody Negative (Negative)
--- NOTE | 2020-04-06 16:17 | CT_ITS ---
PROCEDURE: CT HEAD/BRAIN WO CON CLINICAL INDICATION: seizure Dizziness COMPARISON: No exams were available for comparison TECHNIQUE: Axial images obtained. All CT scans at the facility use one or more dose reduction, viz: automated exposure control, ma/kV adjustment per patient size (including targeted exams where dose is matched to indication, i.e. head), or iterative reconstruction technique. FINDINGS: No midline shift, mass effect, intracranial hemorrhage, hydrocephalus, or extra-axial fluid collection is evident. There is generalized atrophy with hypoattenuation of the periventricular white matter consistent with microangiopathic changes. There is an old lacunar infarction in the left basal ganglia the calvarium has an unremarkable appearance. No mastoid effusion. No sinus air-fluid level. IMPRESSION: No acute intracranial finding Dictated by: Dmitry Martinez MD 04/07/2020 07:07 Dmitry Martinez MD in [place] 04/07/2020 07:10
[2020-04-06 17:07] LABS: Ammonia < 9 umol/L (9-30)
--- NOTE | 2020-04-06 17:20 | PC.NURSE ---
PT IN CT
[2020-04-06 17:22] LABS: Troponin I < 0.01 ng/ml (0.00-0.034)
[2020-04-06 17:32] LABS: VBG Base Excess 4.8 mmol/L (-2.4-2.3); VBG HCO3 30.1 mmol/L (23-30); VBG Oxygen Saturation 72.3 % (50-70); VBG PH 7.37 mmol/L (7.31-7.41); VBG PO2 37.7 mmol/L (28-40); VBG Total CO2 31.8 mmol/L (23-27)
[2020-04-06 17:33] LABS: VBG PCO2 53.7 mmol/L (35-51)
--- NOTE | 2020-04-06 17:34 | PC.NURSE ---
PT IS BACK FROM CT
[2020-04-06 17:38] LABS: Thyroid Stimulating Hormone 1.08 uIU/mL (0.465-4.68)
== END 2020-04-06 20:12 | disposition home or self-care (01) ==
PROVIDERS: Emergency Provider Emergency Medicine; PCP Family Medicine
DX: G40.909 Epilepsy, unspecified, not intractable, without status epilepticus (principal); N30.00 Acute cystitis without hematuria; I25.10 Atherosclerotic heart disease of native coronary artery without angina pectoris; J44.9 Chronic obstructive pulmonary disease, unspecified; I10 Essential (primary) hypertension; E78.5 Hyperlipidemia, unspecified; Z79.899 Other long term (current) drug therapy
CPT/HCPCS: 70450; 80053; 81001; 82140; 82803; 84443; 84484; 85025; 86328; 87086; 96374; 99284

== ENCOUNTER → 2020-04-20 13:47 | Outpatient (CLI) | payer MEDICARE, SELFPAY ==
--- NOTE | 2020-04-20 | CA_ITS ---
APPROVED REPORT EXAM: Comprehensive 2D, Doppler, and color-flow Echocardiogram [employer] Installer: Janey Vila [facility], RVS Ht: 5 ft 2 in Wt: 169lbs BSA: 1.78 BP: 170/44 mmHg Indications: copd, aortic stenosis, phtn, mr, tr, O2 dependent 2D Dimensions IVSd 0.82 cm LVEF (Visual) 46.80 % PWd 0.82 cm LA Volume 105.40 mL LVDd 5.21 cm LA Volume Index 57.90 mL/m2 (M/F) 16-34 LVDs 3.98 cm LVOT 1.62 cm (M/F) 1.5-2.5 M-Mode Dimensions LA Diam 4.62 cm (1.9-4.0) LVDd 5.40 cm (3.5-5.7) Ao Diam 3.06 cm (2.0-3.7) LVDs 3.16 cm (3.5-5.7) IVSd 1.22 cm (0.6-1.1) EF (Teich) 71.90% EPSs 0.36 cm FS 41.50% EDV (Teich) 141.30 mL TAPSE 1.78 (<1.7) ESV (Teich) 39.70 mL LV Diastology E Decel Time 163.00 (160-240 msec) E/A Ratio 2.57 MED E' 10.30 (< 7 cm/sec) MED A' 7.60 cm/s E'/MED E' Ratio 16.86 (>14) LAT E' 10.20 (<10 cm/sec) LAT A' 4.60 cm/s E/LAT E' Ratio 17.03 (>14) Aortic Valve LVOT Max 114.00 (70-110 cm/s) LVOT VTI 23.57 cm AoV Peak Aayush. 375.00 (50-130 cm/s) AO Peak GR. 56.40 mmHg AO Mean GR. 30.00 (<5 mmHg) AO VTI 81.71 (18-25 cm) ROXI (VTI) 0.59 (2.5-4.5 cm2) Mitral Valve MV E Max Aayush. 174.00 (40-130 cm/s) MV A Velocity 67.00 (40-130 cm/s) E/A Ratio 2.57 MV Decel. Time 163.00 (160-240 ms) MV Mean Gr. 4.10 (<2mmHg) MV PHT 48.00 ms Pulmonary Valve PV Peak Velocity 90.00 (50-150 cm/s) Tricuspid Valve TR P. Velocity 435.00 cm/s RAP Estimate 10.00 mmHg RVSP 85.90 mmHg Left Ventricle Left atrium is mildly enlarged, left ventricle is normal size, mild concentric left ventricular hypertrophy, visually estimated ejection fraction 55% with no regional wall motion abnormality, grade 2 diastolic dysfunction seen without tissue Doppler evidence of raise left atrial pressure. Right Ventricle Right atrium and right ventricle are mildly enlarged with normal contractility. Aortic Valve Aortic valve is thickened and calcified with severe restriction to leaflet mobility, the maximum aortic outflow velocity is 4 m/s, resulting in a mean gradient across valve of 33 mmHg, calculated valve area is 0.6 cm, represents severe aortic stenosis, there is mild aortic insufficiency. Mitral Valve Mitral valve leaflets are minimally thickened, there is mild mitral regurgitation. Tricuspid Valve Tricuspid valve is grossly normal, there is mild tricuspid regurgitation, calculated right ventricular systolic pressure is 82 mmHg. Pulmonic Valve Pulmonic valve is poorly visualized. Great Vessels Aortic root is normal size. Pericardium No significant pericardial effusion noted. Conclusion 1. Mild biatrial enlargement, normal left ventricular size, mild concentric left ventricular hypertrophy, visually estimated ejection fraction 55% with no regional wall motion abnormality, grade 2 diastolic dysfunction seen without tissue Doppler evidence of raise left atrial pressure. 2. Mildly enlarged right ventricle with normal contractility. 3. Thickened and calcified aortic valve with severe aortic stenosis, valve area is 0.6 cm???, there is mild aortic insufficiency. 4. Mild tricuspid regurgitation, calculated right ventricular systolic pressure is 82 mmHg. 5. No significant pericardial effusion noted. Electronically signed by : Terrance rOellana, 04/20/2020 20:45:36
== END ==
PROVIDERS: PCP Family Medicine; Visit Provider Internal Medicine Cardiovascular Disease
DX: I35.0 Nonrheumatic aortic (valve) stenosis (principal)
CPT/HCPCS: 93308

== ENCOUNTER 2020-04-21 14:13 | Observation (INO) | payer MEDICARE, SELFPAY ==
[2020-04-21] VITALS (18 sets, daily range): BP systolic 84–174; BP diastolic 46–75; PULSE 71–88; RESP 18–24; TEMP 36.7–37.3; O2SAT 76–98; BMI 30.1
--- NOTE | 2020-04-21 14:18 | HMH.EDSOB ---
ED Disposition Clinical Impression: Acute on chronic anemia CHF exacerbation Qualifiers: Heart failure type: unspecified Qualified Code(s): I50.9 - Heart failure, unspecified Disposition: Admitted As Inpatient Condition on Discharge: Fair Referrals: Anita Joel MD [Primary Care Provider] - - Critical Care Critical Care Time: No Attestation: On , the high probability of a clinically significant, sudden or life threatening deterioration of the following system(s) required my full and direct attention, intervention and personal management. The time I documented below is in addition to time spent performing reported procedures but includes the following listed in this critical care notation. Medical Decision Making - Medical Records Medical records reviewed: Yes: I reviewed the patient's medical records. - Doroteo Inquiry Pt receiving controlled substance: No Vital Signs: 04/21/20 14:14 04/21/20 14:43 04/21/20 14:51 Temperature 99.1 F Temperature Source Oral Pulse Rate [Right Radial] 71 80 Respiratory Rate 24 Blood Pressure [Right Arm] 162/72 H 139/62 Blood Pressure Mean [Right Arm] 102 87 Blood Pressure Source [Right Arm] Automatic Cuff Automatic Cuff Blood Pressure Position [Right Arm] Sitting 02 Sat by Pulse Oximetry 76 L 97 96 Oxygen Delivery Method Nasal Cannula Nasal Cannula Room Air Oxygen Flow Rate (LPM) 3 4 04/21/20 15:28 04/21/20 15:53 Temperature Temperature Source Pulse Rate [Right Radial] 77 83 Respiratory Rate Blood Pressure [Right Arm] 142/68 H 142/68 H Blood Pressure Mean [Right Arm] 92 92 Blood Pressure Source [Right Arm] Automatic Cuff Blood Pressure Position [Right Arm] Sitting 02 Sat by Pulse Oximetry 95 94 L Oxygen Delivery Method Nasal Cannula Room Air Oxygen Flow Rate (LPM) 4 - Lab Data Lab results reviewed: Yes: I reviewed the patient's lab results. Lab Results 04/21/20 14:30: WBC 14.0 H, RBC 3.06 L, Hgb 8.6 L, Hct 28.2 L, MCV 92.2, MCH 28.1, MCHC 30.5 L, RDW 14.6, Plt Count 211, MPV 9.3, Neut % (Auto) 85.8 H, Lymph % (Auto) 8.7 L, [place] % (Auto) 4.8, Eos % (Auto) 0.4, Baso % (Auto) 0.4, Neut # (Auto) 12.0 H, Lymph # (Auto) 1.2, [place] # (Auto) 0.7, Eos # (Auto) 0.1, Baso # (Auto) 0.1, Total Counted 100, Neutrophils % (Manual) 89 H, Lymphocytes % (Manual) 8 L, Monocytes % (Manual) 3, Platelet Estimate Normal, Hypochromasia 2+ 04/21/20 14:30: Sodium 138, Potassium 4.2, Chloride 103, Carbon Dioxide 31 H, Anion Gap 8.2, BUN 15, Creatinine 1.20 H, Estimated Creat Clear 48, Estimated GFR 44 L, Est GFR ( Amer) 53 L, Glucose 134 H, Calcium 9.6, Total Bilirubin 0.6, AST 19, ALT 12, Alkaline Phosphatase 71, Troponin I 0.02, Total Protein 6.9, Albumin 3.7, Globulin 3.2, Albumin/Globulin Ratio 1.2 04/21/20 14:30: NT-Pro-B Natriuret Pep 5980 H Result diagrams: 04/21/20 14:30 04/21/20 14:30 Orders (Tests/Meds): ED MEDICATIONS Discontinued Medications Generic Name Dose Route Start Last Admin Trade Name Freq PRN Reason Stop Dose Admin Furosemide 10 mg 04/21/20 15:33 04/21/20 15:53 Furosemide 20 Mg/2 Ml Vial IV 04/21/20 15:34 10 mg ONCE ONE Administration ORDERS Category Date Time Status Transfuse RBC's [Red Blood Cells] Stat [facility] 04/21/20 15:57 Ordered Type and Screen Stat [facility] 04/21/20 15:56 Ordered Covid-19 Nasal PCR ([facility]) Routine Lab 04/21/20 14:30 Received Troponin I Q3H Lab 04/21/20 17:30 Ordered Troponin I Q3H Lab 04/21/20 20:30 Ordered Urinalysis and Microscopic Stat Lab 04/21/20 15:15 Ordered ECG Request by /Estefania Stat Y 04/21/20 14:19 Ordered - ECG Data Tracing #1 Normal sinus rhythm, 81 bpm, normal intervals, no ST elevation or depression. ECG initial impression date: 04/21/20 ECG initial impression time: 15:20 Medical Decision Narrative: 75yo F evaluated for shortness of breath with position change. Differential diagnosis includes but not limited to: ACS/SC, PE, pneumonia, pneumothorax, wors
--- NOTE | 2020-04-21 14:19 | XR_ITS ---
PROCEDURE: XR CHEST PORTABLE CLINICAL HISTORY: sob Shortness of breath COMPARISON: DX XR CHEST 2V from 05/29/2019 CR XR CHEST 2V from 06/02/2019 CR XR CHEST 2V from 10/20/2019 FINDINGS: There is cardiomegaly with mild pulmonary venous congestion suggesting mild CHF. COPD with chronic changes. There are fibrotic changes in the left midlung with some superimposed density suggesting atelectasis or infiltrate. There is some patchy ground-glass attenuation in both upper lobes and right lower lobe. There is chronic blunting of the left CP angle. IMPRESSION: There is cardiomegaly with prominence of the pulmonary vessels suggesting CHF with superimposed COPD/chronic change with areas of suspected ground-glass infiltrate in both upper lobes and right lower lobe. This could be seen with Covid19 pneumonia. Please correlate with clinical parameters. Dictated by: Dmitry Martniez MD 04/21/2020 14:52 Dmitry Martinez MD in [place] 04/21/2020 14:52
--- NOTE | 2020-04-21 14:32 | PC.NURSE ---
Rad at bedside
[2020-04-21 14:45] LABS: Basophils # 0.1 K/mm3 (0-0.2); Basophils % 0.4 % (0.1-2.0); Eosinophils # 0.1 K/mm3 (0.0-0.4); Eosinophils % 0.4 % (0.1-12.0); Hematocrit 28.2 % (37.0-47.0); Hemoglobin 8.6 g/dL (12.2-16.2); Lymphocytes # 1.2 K/mm3 (0.7-4.5); Lymphocytes % 8.7 % (10-50); Mean Corpuscular HGB Conc 30.5 g/dL (31.8-35.4); Mean Corpuscular Hemoglobin 28.1 pg (27.0-31.2); Mean Corpuscular Volume 92.2 fl (81-99); Mean Platelet Volume 9.3 fl (7.4-10.4); Monocytes # 0.7 K/mm3 (0.1-1.0); Monocytes % 4.8 % (1.7-9.3); Neutrophils % 85.8 % (37.0-80.0); Platelet Count 211 K/mm3 (142-424); Red Blood Count 3.06 M/mm3 (4.20-5.40); Red Cell Distribution Width 14.6 % (11.5-17.5)
[2020-04-21 14:49] LABS: Chloride 103 mmol/L (98-107); MANUAL DIFFERENTIAL MANUAL DIFFERENTIAL (MANUAL DIFF)
[2020-04-21 14:50] LABS: Potassium 4.2 mmoL/L (3.5-5.1); Sodium 138 mmol/L (136-145)
[2020-04-21 14:52] LABS: Alanine Aminotransferase 12 U/L (12-78); Aspartate Amino Transferase 19 U/L (14-36); Blood Urea Nitrogen 15 mg/dl (7-17); Creatinine Clearance Estimated 48 mL/min (50-200); Estimated Glomerular Filt Rate 44 ml/min (>60); GFR (African American) 53 ML/MIN (>60)
[2020-04-21 14:53] LABS: Albumin Level 3.7 g/dl (3.5-5.0); Albumin/Globulin Ratio 1.2 (1.1-1.8); Alkaline Phosphatase 71 U/L (38-126); Anion Gap 8.2 mEq/L (5-15); Bilirubin,Total 0.6 mg/dl (0.2-1.3); Calcium 9.6 mg/dl (8.4-10.2); Carbon Dioxide 31 mmol/L (22.0-30.0); Globulin 3.2 g/dL (1.3-3.2); Glucose 134 mg/dl (74-100); Total Protein,Serum 6.9 g/dl (6.3-8.2)
[2020-04-21 15:02] LABS: NT Pro Brain Natriuretic Pep. 5980 pg/mL (0-450)
[2020-04-21 15:05] LABS: Troponin I 0.02 ng/ml (0.00-0.034)
--- NOTE | 2020-04-21 15:09 | ECG_ITS ---
APPROVED REPORT Exam: Resting ECG HR:81 bpm ECG Measurements Heart Rate 81 AXES CO 158 P 71 QRSd 76 QRS 94 QT 392 T 24 QTc 455 Conclusion Normal sinus rhythm Rightward axis Septal infarct, age undetermined Abnormal ECG Electronically signed by : Wild Menjivar, 04/22/2020 19:47:25
[2020-04-21 15:47] LABS: Hypochromasia 2+; Lymphocytes % 8 % (10-50); Monocytes % 3 % (2-9); Neutrophils % 89 % (42-76); Total Cells Counted 100
[2020-04-21 15:48] LABS: Platelet Estimate Normal
[2020-04-21 16:30] LABS: Microscopic, Urine URINE MICROSCOPIC (MICROSCOPIC)
--- NOTE | 2020-04-21 16:37 | PC.NURSE ---
house called for bed
[2020-04-21 16:50] LABS: Appearance,Urine CLEAR (Clear); Bilirubin,Urine Negative (Negative); Blood, Urine Negative (Negative); Color,Urine YELLOW (Yellow); Glucose,Urine (UA) Negative (Negative); Ketones,Urine Negative (Negative); Leukocyte Esterase,Urine TRACE (Negative); Nitrate,Urine Negative (Negative); PH,Urine 6.5 (5.0-8.5); Protein,Urine Negative (Negative); Urobilinogen,Urine 0.2 EU/dl (0.2)
[2020-04-21 18:03] LABS: Bacteria,Urine 1+ /lpf
--- NOTE | 2020-04-21 18:22 | PC.NURSE ---
attempted to call report to second floor staff states they will call me back
[2020-04-21 18:32] LABS: Troponin I 0.02 ng/ml (0.00-0.034)
--- NOTE | 2020-04-21 18:52 | PC.NURSE ---
patient arrived to floor
--- NOTE | 2020-04-21 20:00 | HMH.HP ---
*Admission Date: 04/21/20 *Chief complaint: Shortness of breath *History of present illness: This 75-year-old white female has known valvular heart disease due to aortic stenosis and she has chronic congestive heart failure. She has pulmonary hypertension and COPD. She is on continuous supplemental oxygen. She presented in the emergency room with increasing shortness of breath. She was found to be in worsening congestive heart failure. She tends to be anemic and her hemoglobin in the emergency room was 8.6. Her Covid PCR was negative in the emergency room. Her chest x-ray suggests congestive heart failure but also some bibasilar fibrotic changes. She comes to the floor having only received 10 mg of furosemide in the emergency room. She has been typed and crossed for 2 units of packed red blood cells to be given when available. [facility] History Medical History: Reports:: Atherosclerotic Heart Disease, Cancer, Carotid Stenosis (20 to 49% stenosis on the left 50 to 69% stenosis on the right.), Congestive Heart Failure, Chronic Obstructive Pulmonary Disease (COPD), Coronary Artery Disease (Cardiac catheterization in May 2019), Depression, Heart Murmur (Aortic stenosis), Home Oxygen, Hyperlipidemia, Hypertension, Lung Disease, Pulmonary Embolism, Renal Disease, Seizures, Urinary Tract Infection, Valvular Heart Disease Denies:: Diabetes Mellitus Type 1, Diabetes Mellitus Type 2, MRSA *Have you ever received a pneumonia vaccine?: No *Have you received a flu vaccine this season?: Yes Other Medical History: Reports: Anemia, Arthritis, Cataracts, Hypothyroidism, Thyroid Disease Laterality Cases: Right: Mastectomy Other Surgeries: Yes: Cancer Surgery, Cardiac Catheterization (May 2019), Colonoscopy Amputation: No Fractures: Yes (lt arm, rt wrist) - *Social History Smoking Status: Former smoker (Quit smoking 2013) Tobacco Type: cigarettes #Yrs smoked (if former smoker): 40 Alcohol Intake: never Substance Use Type: denies use *Occupational Status:: retired Housing: house Household Members: family *Travel in the last 8 weeks: None - Psychiatric History Pschychiatric History:: Reports:: Depression Family Hx:: Cancer (Mother age 75), Hypertension (Father age 83) Review of Systems - Constitutional Denies body ache(s), Denies chills - Eyes Denies change in vision - ENT Denies change in voice, Denies difficulty swallowing - *Cardiovascular Reports shortness of breath, Reports shortness of breath with activity, Reports leg swelling, Denies chest pain - *Respiratory Reports chest congestion, Reports cough - *Gastrointestinal Denies abdominal pain - *Musculoskeletal Reports joint pain, Reports muscle weakness - Integumentary/Breasts Denies change in hair, Denies change in skin color - *Neurologic Reports seizure-like activity, Reports unsteadiness - Psychiatric Denies behavioral changes - Endocrine Denies flushing, Denies rapid, pounding, or irregular heartbeat - Hematologic/Lymphatic Denies easy bleeding Meds Home Medications Medication Instructions Recorded Confirmed Type Clopidogrel Bisulfate [Plavix 75mg 75 mg PO DAILY 01/20/19 04/21/20 History Tab] levothyroxine 88 mcg tablet 88 mcg PO DAILY 04/24/19 04/21/20 History mecobalamin (vitamin B12) 1,000 1,000 mcg PO DAILY 04/24/19 04/21/20 History mcg chewable tablet sertraline 100 mg tablet 150 mg PO DAILY 04/24/19 04/21/20 History polyethylene glycoL 3350 [Miralax 17 gm PO DAILY 05/29/19 11/04/19 History 17gm Packet] ipratropium 0.5 mg-albuterol 3 mg 3 ml INHALATION TID ml 10/16/19 11/04/19 History (2.5 mg base)/3 mL nebulization soln Rosuvastatin Calcium 20 mg PO DAILY 10/20/19 04/21/20 History lisinopriL [Zestril 10mg Tab] 10 mg PO BID 10/20/19 04/21/20 History verapamil 180 mg tablet,extended 270 mg PO DAILY tab 12/08/19 04/21/20 History release furosemide 20 mg tablet 20 mg PO DAILYP tab 04/16/20 04/21/20 Histo
[2020-04-21 20:32] LABS: Lactic Acid 1.8 mmol/L (0.7-2.1)
[2020-04-21 21:10] LABS: Troponin I 0.02 ng/ml (0.00-0.034)
[2020-04-22] VITALS (18 sets, daily range): BP systolic 117–164; BP diastolic 47–69; PULSE 70–94; RESP 18–23; TEMP 36.4–37.2; O2SAT 91–96; BMI 30.4; BMI 30.2
--- NOTE | 2020-04-22 04:28 | PC.NURSE ---
Pt has been pleasant and cooperative this shift. A&O X4. No complaints of pain or SOA. Pt is receiving O2 via NC @ 4 LPM with sats. >90%. Lungs CTA. 2+ pitting edema noted to BLE. Skin is C/D/I. F/C patent and draining clear, red-colored urine at bedside to gravity. No BM this shift. Pt requires assistance X1 when ambulating. 20 G peripheral IV in the LT AC is patent and SL. 20 G peripheral IV in the RT forearm is patent and SL. VSS. Call light within reach. Will continue to monitor.
[2020-04-22 05:01] LABS: Hematocrit 32.8 % (37.0-47.0)
[2020-04-22 06:59] LABS: Chloride 101 mmol/L (98-107); Potassium 3.7 mmoL/L (3.5-5.1); Sodium 140 mmol/L (136-145)
[2020-04-22 07:01] LABS: Basophils # 0.1 K/mm3 (0-0.2); Basophils % 0.7 % (0.1-2.0); Blood Urea Nitrogen 16 mg/dl (7-17); Creatinine Clearance Estimated 46 mL/min (50-200); Eosinophils # 0.1 K/mm3 (0.0-0.4); Eosinophils % 0.5 % (0.1-12.0); Estimated Glomerular Filt Rate 44 ml/min (>60); GFR (African American) 53 ML/MIN (>60); Hematocrit 32.3 % (37.0-47.0); Lymphocytes # 1.3 K/mm3 (0.7-4.5); Lymphocytes % 8.7 % (10-50); Mean Corpuscular HGB Conc 30.9 g/dL (31.8-35.4); Mean Corpuscular Hemoglobin 28.1 pg (27.0-31.2); Mean Corpuscular Volume 90.8 fl (81-99); Mean Platelet Volume 10.4 fl (7.4-10.4); Monocytes # 1.1 K/mm3 (0.1-1.0); Monocytes % 7.4 % (1.7-9.3); Neutrophils # 12.8 K/mm3 (1.8-7.8); Neutrophils % 82.8 % (37.0-80.0); Platelet Count 175 K/mm3 (142-424); Red Blood Count 3.56 M/mm3 (4.20-5.40); Red Cell Distribution Width 15.3 % (11.5-17.5); White Blood Count 15.5 K/mm3 (4.8-10.8)
[2020-04-22 07:02] LABS: Anion Gap 6.7 mEq/L (5-15); Calcium 9.1 mg/dl (8.4-10.2); Carbon Dioxide 36 mmol/L (22.0-30.0); Glucose 107 mg/dl (74-100); Magnesium 1.9 mg/dl (1.6-2.3); Phosphorous 3.8 mg/dl (2.5-4.5)
[2020-04-22 07:26] LABS: MANUAL DIFFERENTIAL MANUAL DIFFERENTIAL (MANUAL DIFF)
--- NOTE | 2020-04-22 08:12 | HMH.PHAVTE ---
[facility] Pharmacy VTE Monitoring - Patient Demographics Admission date: 04/22/20 Report Date: 04/22/20 Time: 08:12 Allergies/Adverse Reactions: Patient Allergies progesterone Adverse Reaction (Severe, Verified 04/21/20 20:01) Height: 1.57 m Weight: 74.503 kg Patient Problems: Current Active Problems CHF exacerbation (Acute) Acute on chronic anemia (Acute) History of seizure (Acute) Renal insufficiency (Acute) Depression with anxiety (Acute) Hypothyroidism (acquired) (Acute) Pulmonary infiltrate (Acute) Aortic stenosis (Chronic) Edema of both lower extremities (Acute) Pulmonary HTN (Chronic) - VTE Risk Labs: VTE Related Lab Results Hgb 10.0 g/dL (12.2-16.2) L 04/22/20 05:40 Hct 32.3 % (37.0-47.0) L 04/22/20 05:40 Plt Count 175 K/mm3 (142-424) 04/22/20 05:40 BUN 16 mg/dl (7-17) 04/22/20 05:40 Creatinine 1.20 mg/dl (0.52-1.04) H 04/22/20 05:40 Estimated Creat Clear 46 mL/min (50-200) 04/22/20 05:40 Was VTE Risk Assessment Performed: Yes VTE Score: 5 VTE Risk Level: Low Risk Clinical Trial Participant: No - Prophylaxis VTE Prophylaxis Ordered?: Yes Types of VTE Prophylaxis: IPCS Knee High, Pharmacological Location of Applied Device: Bilateral Lower Extremeties Pharmacologic Type: Enoxaparin
--- NOTE | 2020-04-22 08:18 | HMH.PHAINT ---
home medication reconciliation completed using list from [facility]
--- NOTE | 2020-04-22 09:08 | HMH.ACPN2 ---
Internal Medicine - PN: Subj *Date: 04/22/20 *Time: 09:08 Interval history: The patient received 2 units of blood and her hemoglobin and hematocrit improved from 8.6/28 to 10.0/32.8. She was given Lasix and is down 6 pounds from yesterday. She states her swelling is better and her shortness of breath has improved. Her weakness has also improved. Exam Vital signs and Labs for Last 24 Hours: Temp Pulse Resp BP Pulse Ox 98.1 F 77 18 139/54 L 94 L 04/22/20 08:00 04/22/20 08:00 04/22/20 08:00 04/22/20 08:00 04/22/20 08:00 Laboratory Results - last 24 hr 04/21/20 14:30: WBC 14.0 H, RBC 3.06 L, Hgb 8.6 L, Hct 28.2 L, MCV 92.2, MCH 28.1, MCHC 30.5 L, RDW 14.6, Plt Count 211, MPV 9.3, Neut % (Auto) 85.8 H, Lymph % (Auto) 8.7 L, [place] % (Auto) 4.8, Eos % (Auto) 0.4, Baso % (Auto) 0.4, Neut # (Auto) 12.0 H, Lymph # (Auto) 1.2, [place] # (Auto) 0.7, Eos # (Auto) 0.1, Baso # (Auto) 0.1, Total Counted 100, Neutrophils % (Manual) 89 H, Lymphocytes % (Manual) 8 L, Monocytes % (Manual) 3, Platelet Estimate Normal, Hypochromasia 2+ 04/21/20 14:30: Sodium 138, Potassium 4.2, Chloride 103, Carbon Dioxide 31 H, Anion Gap 8.2, BUN 15, Creatinine 1.20 H, Estimated Creat Clear 48, Estimated GFR 44 L, Est GFR ( Amer) 53 L, Glucose 134 H, Calcium 9.6, Total Bilirubin 0.6, AST 19, ALT 12, Alkaline Phosphatase 71, Troponin I 0.02, Total Protein 6.9, Albumin 3.7, Globulin 3.2, Albumin/Globulin Ratio 1.2 04/21/20 14:30: NT-Pro-B Natriuret Pep 5980 H 04/21/20 14:30: Lactate 1.8 04/21/20 16:00: Urine Color Yellow, Urine Appearance Clear, Urine pH 6.5, Ur Specific [place] 1.010, Urine Protein Negative, Urine Glucose (UA) Negative, Urine Ketones Negative, Urine Blood Negative, Urine Nitrate Negative, Urine Bilirubin Negative, Urine Urobilinogen 0.2, Ur Leukocyte Esterase Trace, Urine WBC 10-20, Urine Bacteria 1+ 04/21/20 16:25: Blood Type A Positive, Antibody Screen Negative, Crossmatch (AHG) See Detail 04/21/20 17:40: Troponin I 0.02 04/21/20 20:30: Troponin I 0.02 04/22/20 04:30: Hgb 10.0 L D, Hct 32.8 L 04/22/20 05:40: WBC 15.5 H, RBC 3.56 L, Hgb 10.0 L, Hct 32.3 L, MCV 90.8, MCH 28.1, MCHC 30.9 L, RDW 15.3, Plt Count 175, MPV 10.4, Neut % (Auto) 82.8 H, Lymph % (Auto) 8.7 L, [place] % (Auto) 7.4, Eos % (Auto) 0.5, Baso % (Auto) 0.7, Neut # (Auto) 12.8 H, Lymph # (Auto) 1.3, [place] # (Auto) 1.1 H, Eos # (Auto) 0.1, Baso # (Auto) 0.1 04/22/20 05:40: Sodium 140, Potassium 3.7, Chloride 101, Carbon Dioxide 36 H, Anion Gap 6.7, BUN 16, Creatinine 1.20 H, Estimated Creat Clear 46, Estimated GFR 44 L, Est GFR ( Amer) 53 L, Glucose 107 H D, Calcium 9.1, Phosphorus 3.8, Magnesium 1.9 I & O for Last 24 hours: Intake & Output 04/19/20 04/20/20 04/21/20 04/22/20 11:59 11:59 11:59 11:59 Intake Total 1177 / 1177 Output Total 4020 / 4020 Balance -2843 / -2843 Weight 164 lb 4 oz Microbiology Reports for the Last 24 Hours: Microbiology 04/21/20 14:30 Nasopharyngeal Coronavirus COVID-19 PCR - Final - Constitutional no acute distress - *Routine Respiratory Exam Present: rales (bibasilar) - *Routine Cardiovascular Exam Present: RRR, murmur - *Routine Abdominal Exam Present: soft, normoactive bowel sounds. Absent: tenderness - *Routine Extremities Exam Present: edema (trace bilateral LE edema). Absent: cyanosis, clubbing - *Routine Skin Exam Present: warm. Absent: rash - *Routine Neurological Exam Present: alert, oriented X3 Assessment and Plan (1) CHF exacerbation Status: Acute Qualifiers: Heart failure type: unspecified Qualified Code(s): I50.9 - Heart failure, unspecified Category: Medical Code(s): I50.9 - Heart failure, unspecified (2) Pulmonary infiltrate Status: Acute Category: Medical Code(s): R91.8 - Other nonspecific abnormal finding of lung field (3) Acute on chronic anemia Status: Acute Category: Medical Code(s): D64.9 - Anemia, unspecified (4) Edema of both lowe
[2020-04-22 09:44] LABS: Coronavirus 19 IgG Antibody Negative (Negative); Coronavirus 19 IgM Antibody Negative (Negative)
[2020-04-22 10:25] LABS: Lymphocytes % 8 % (10-50); Monocytes % 10 % (2-9); Neutrophils % 82 % (42-76); Platelet Estimate Normal; RBC Morphology Normal; Total Cells Counted 100
--- NOTE | 2020-04-22 12:12 | HMH.CNCARD ---
<Licha Julien - Last Filed: 04/22/20 12:12> History of Present Illness Consult date: 04/22/20 Requesting physician: Anita Joel Consult reason: aortic stenosis Chief complaint: soa History of present illness: Is a 75-year-old white female who was admitted to the hospital with worsening shortness of breath. She was evaluated by Dr. KIRBY on outpatient basis and started on spironolactone as well as had a repeat echocardiogram obtained. The patient states that since that time she has had progressively worsening of breath. She states walking from her bedroom to the bathroom causes significant shortness of breath. Her son who is in the room with her states that after she takes 3 steps she is profoundly short of breath and he started monitoring her oxygen levels. With 3 steps of ambulation her oxygen saturation was dropping down to 71% but he states it would recover when she sat down back into the 90s. This continued to progress with associated bilateral lower extremity edema. She did call the office and the patient was offered a same-day appointment but her son could not get her to that appointment and he decided to bring her into the emergency department. She was treated with IV Lasix and did lose about 6 pounds and states her shortness of breath has improved but she is still really short of breath with exertion and even with talking. This does improve with rest. She was found to have CHF on her chest x-ray. She was also found to be anemic with a hemoglobin of 8.6 but this did improve to 2:10 units of packed red blood cells. Denies any chest pain or pressure. She states her edema has improved with Lasix. She denies any fever, chills, nausea, vomiting, diarrhea. She does have orthopnea associated with her shortness of breath. [facility] History I have reviewed the patient's past medical history: Yes Medical History: Reports:: Atherosclerotic Heart Disease, Cancer, Carotid Stenosis (20 to 49% stenosis on the left 50 to 69% stenosis on the right.), Congestive Heart Failure, Chronic Obstructive Pulmonary Disease (COPD), Coronary Artery Disease (Cardiac catheterization in May 2019), Depression, Heart Murmur (Aortic stenosis), Home Oxygen, Hyperlipidemia, Hypertension, Lung Disease, Pulmonary Embolism, Renal Disease, Seizures, Urinary Tract Infection, Valvular Heart Disease Denies:: Diabetes Mellitus Type 1, Diabetes Mellitus Type 2, MRSA *Have you ever received a pneumonia vaccine?: Yes *Have you received a flu vaccine this season?: Yes Other Medical History: Reports: Anemia, Arthritis, Cataracts, Hypothyroidism, Thyroid Disease Laterality Cases: Right: Mastectomy Other Surgeries: Yes: Cancer Surgery, Cardiac Catheterization (May 2019), Colonoscopy Amputation: No Fractures: Yes (lt arm, rt wrist) - *Social History Last grade of school completed: High school graduate Smoking Status: Former smoker (Quit smoking 2013) Tobacco Type: cigarettes #Yrs smoked (if former smoker): 40 Smoking End Date: 2011 Alcohol Intake: never Substance Use Type: denies use *Occupational Status:: disabled Housing: house Household Members: children *Travel in the last 8 weeks: None - Psychiatric History Pschychiatric History:: Reports:: Depression Family Hx:: Cancer (Mother age 75), Hypertension (Father age 83) Meds Home Medications Medication Instructions Recorded Confirmed Type Clopidogrel Bisulfate [Plavix 75mg 75 mg PO DAILY 01/20/19 04/21/20 History Tab] levothyroxine 88 mcg tablet 88 mcg PO DAILY 04/24/19 04/21/20 History mecobalamin (vitamin B12) 1,000 1,000 mcg PO DAILY 04/24/19 04/21/20 History mcg chewable tablet sertraline 100 mg tablet 150 mg PO DAILY 04/24/19 04/21/20 History ipratropium 0.5 mg-albuterol 3 mg 3 ml INHALATION TID ml 10/16/19 04/21/20 History (2.5 mg base)/3 mL nebulization soln Rosuvastatin Calcium 20 mg PO HS 10/20/19 04/22/20 History lisinopriL [Zestril 10mg Tab] 10 mg PO BID 10/20/19 04/21/20 His
--- NOTE | 2020-04-22 13:17 | HMH.ACPN2 ---
Internal Medicine - PN: Subj *Date: 04/22/20 *Time: 13:17 Interval history: See cardiology note. Transfer to [facility] for likely TAVR, Dr. Hood. Exam Vital signs and Labs for Last 24 Hours: Temp Pulse Resp BP Pulse Ox 98.1 F 75 18 139/54 L 95 04/22/20 08:00 04/22/20 11:16 04/22/20 08:00 04/22/20 08:00 04/22/20 11:16 Laboratory Results - last 24 hr 04/21/20 14:30: WBC 14.0 H, RBC 3.06 L, Hgb 8.6 L, Hct 28.2 L, MCV 92.2, MCH 28.1, MCHC 30.5 L, RDW 14.6, Plt Count 211, MPV 9.3, Neut % (Auto) 85.8 H, Lymph % (Auto) 8.7 L, [place] % (Auto) 4.8, Eos % (Auto) 0.4, Baso % (Auto) 0.4, Neut # (Auto) 12.0 H, Lymph # (Auto) 1.2, [place] # (Auto) 0.7, Eos # (Auto) 0.1, Baso # (Auto) 0.1, Total Counted 100, Neutrophils % (Manual) 89 H, Lymphocytes % (Manual) 8 L, Monocytes % (Manual) 3, Platelet Estimate Normal, Hypochromasia 2+ 04/21/20 14:30: Sodium 138, Potassium 4.2, Chloride 103, Carbon Dioxide 31 H, Anion Gap 8.2, BUN 15, Creatinine 1.20 H, Estimated Creat Clear 48, Estimated GFR 44 L, Est GFR ( Amer) 53 L, Glucose 134 H, Calcium 9.6, Total Bilirubin 0.6, AST 19, ALT 12, Alkaline Phosphatase 71, Troponin I 0.02, Total Protein 6.9, Albumin 3.7, Globulin 3.2, Albumin/Globulin Ratio 1.2 04/21/20 14:30: NT-Pro-B Natriuret Pep 5980 H 04/21/20 14:30: Lactate 1.8 04/21/20 16:00: Urine Color Yellow, Urine Appearance Clear, Urine pH 6.5, Ur Specific [place] 1.010, Urine Protein Negative, Urine Glucose (UA) Negative, Urine Ketones Negative, Urine Blood Negative, Urine Nitrate Negative, Urine Bilirubin Negative, Urine Urobilinogen 0.2, Ur Leukocyte Esterase Trace, Urine WBC 10-20, Urine Bacteria 1+ 04/21/20 16:25: Blood Type A Positive, Antibody Screen Negative, Crossmatch (AHG) See Detail 04/21/20 17:40: Troponin I 0.02 04/21/20 20:30: Troponin I 0.02 04/22/20 04:30: Hgb 10.0 L D, Hct 32.8 L 04/22/20 04:30: SARS-CoV-2 IgG Ab (Rapid) Negative, SARS-CoV-2 IgM Ab (Rapid) Negative 04/22/20 05:40: WBC 15.5 H, RBC 3.56 L, Hgb 10.0 L, Hct 32.3 L, MCV 90.8, MCH 28.1, MCHC 30.9 L, RDW 15.3, Plt Count 175, MPV 10.4, Neut % (Auto) 82.8 H, Lymph % (Auto) 8.7 L, [place] % (Auto) 7.4, Eos % (Auto) 0.5, Baso % (Auto) 0.7, Neut # (Auto) 12.8 H, Lymph # (Auto) 1.3, [place] # (Auto) 1.1 H, Eos # (Auto) 0.1, Baso # (Auto) 0.1, Total Counted 100, Neutrophils % (Manual) 82 H, Lymphocytes % (Manual) 8 L, Monocytes % (Manual) 10 H, Platelet Estimate Normal, RBC Morphology Normal 04/22/20 05:40: Sodium 140, Potassium 3.7, Chloride 101, Carbon Dioxide 36 H, Anion Gap 6.7, BUN 16, Creatinine 1.20 H, Estimated Creat Clear 46, Estimated GFR 44 L, Est GFR ( Amer) 53 L, Glucose 107 H D, Calcium 9.1, Phosphorus 3.8, Magnesium 1.9 I & O for Last 24 hours: Intake & Output 04/20/20 04/21/20 04/22/20 04/23/20 11:59 11:59 11:59 11:59 Intake Total 1177 / 1177 360 / 360 Output Total 4020 / 4020 Balance -2843 / -2843 360 / 360 Weight 164 lb 4 oz Microbiology Reports for the Last 24 Hours: Microbiology 04/21/20 14:30 Nasopharyngeal Coronavirus COVID-19 PCR - Final Assessment and Plan (1) Aortic stenosis Status: Chronic Qualifiers: Cardiac valve disease etiology: etiology unspecified Qualified Code(s): I35.0 - Nonrheumatic aortic (valve) stenosis Category: Medical Code(s): I35.0 - Nonrheumatic aortic (valve) stenosis (2) CHF exacerbation Status: Acute Qualifiers: Heart failure type: unspecified Qualified Code(s): I50.9 - Heart failure, unspecified Category: Medical Code(s): I50.9 - Heart failure, unspecified (3) Pulmonary infiltrate Status: Acute Category: Medical Code(s): R91.8 - Other nonspecific abnormal finding of lung field (4) Acute on chronic anemia Status: Acute Category: Medical Code(s): D64.9 - Anemia, unspecified (5) Edema of both lower extremities Status: Acute Category: Medical Code(s): R60.0 - Localized edema (6) Pulmonary HTN Status: Chronic Category: Medical Code(s)
--- NOTE | 2020-04-22 17:11 | PC.NURSE ---
REPORT CALLED TO DESTINY ZELAYA AT
--- NOTE | 2020-04-23 12:23 | HMH.DCSUM ---
General - General Admission date:: 04/21/20 Discharge date: 04/22/20 HPI HPI: This 75-year-old white female has known valvular heart disease due to aortic stenosis and she has chronic congestive heart failure. She has pulmonary hypertension and COPD. She is on continuous supplemental oxygen. She presented in the emergency room with increasing shortness of breath. She was found to be in worsening congestive heart failure. She tends to be anemic and her hemoglobin in the emergency room was 8.6. Her Covid PCR was negative in the emergency room. Her chest x-ray suggests congestive heart failure but also some bibasilar fibrotic changes. She comes to the floor having only received 10 mg of furosemide in the emergency room. She has been typed and crossed for 2 units of packed red blood cells to be given when available. Hospital Course Hospital Course: The patient was started on Lasix for diuresis and was given 2 units of packed red blood cells. Her chest x-ray came back concerning for CHF along with areas of suspected groundglass infiltrate in both upper lobes and the right lower lobe. Radiology was worried about a COVID-19 pneumonia, therefore her IgM and IgG were checked as her PCR nasal swab was negative. Her IgM and IgG were both negative as well. Her troponins were negative, but her BNP was elevated. She was continued on Lasix and her H&H improved from 8.6/28 to 10/32.8. Her swelling and shortness of breath improved after receiving a few doses of Lasix. Her weakness improved after receiving the 2 units of blood. Cardiology was consulted and saw the patient. Due to her severe aortic stenosis, the case was discussed with both Dr. Restrepo and Dr. Hood and Dr. Hood agreed to transfer the patient to be worked up for surgical intervention most likely with a TAVR procedure. The patient was agreeable to this and she was transferred. Objective Vital signs: Temp Pulse Resp BP Pulse Ox 98.2 F 72 20 122/56 L 95 04/22/20 17:06 04/22/20 17:06 04/22/20 17:06 04/22/20 17:06 04/22/20 16:00 Narrative: - Constitutional moderate distress - *Routine HEENT Exam Head: Present: normocephalic Eye: Present: PERRL ENT: Present: mucous membranes moist. Absent: dentition normal (Edentulous with dentures) - *Routine Neck Exam Present: JVD - Routine Chest/Breast/Axilla Exam Chest wall: Absent: tenderness - *Routine Respiratory Exam Present: accessory muscle use, decreased breath sounds, rales (Bibasilar) - *Routine Cardiovascular Exam Present: RRR, murmur (Aortic, prominent) - *Routine Abdominal Exam Present: soft. Absent: tenderness - *Routine Extremities Exam Present: edema (3+ bilaterally) - *Routine Skin Exam Present: pallor. Absent: jaundice - *Routine Neurological Exam Present: alert, oriented X3 Results Labs on day of discharge: Preliminary micro results at discharge 04/21/20 16:00 Urine Culture - Preliminary Urine,Catheterized NO GROWTH AFTER 24 HOURS DS: Diagnosis - Discharge Diagnosis (1) Aortic stenosis Status: Chronic (2) CHF exacerbation Status: Acute (3) Pulmonary infiltrate Status: Acute (4) Acute on chronic anemia Status: Acute (5) Edema of both lower extremities Status: Acute (6) Pulmonary HTN Status: Chronic (7) Hypothyroidism (acquired) Status: Acute (8) Renal insufficiency Status: Acute (9) Depression with anxiety Status: Acute (10) History of seizure Status: Acute (11) CAD (coronary artery disease) Status: Chronic Discharge Plan - Patient Discharge Instructions ACTIVITY: Continue current activity DIET: advance to your usual diet Patient Instructions: Congestive Heart Failure (Alternative Therapy), Anemia, DI for Heart Failure - Follow up Plan Disposition: Xfer Short-Term Hosp Home Medications: Home Medications Medication Instructions Recorded Confirmed Type [place]
== END 2020-04-22 18:10 | disposition short-term general hospital (02) ==
LOC: ER 16:06 → 2ND 16:51
PROVIDERS: Physician Assistant; Admitting Provider Family Medicine; Emergency Provider Family Medicine; PCP Family Medicine; Visit Provider Family Medicine
DX: I35.0 Nonrheumatic aortic (valve) stenosis (principal); I11.0 Hypertensive heart disease with heart failure; I50.9 Heart failure, unspecified; R60.0 Localized edema; I27.20 Pulmonary hypertension, unspecified; I25.10 Atherosclerotic heart disease of native coronary artery without angina pectoris; E03.9 Hypothyroidism, unspecified; Z79.899 Other long term (current) drug therapy; Z79.51 Long term (current) use of inhaled steroids; Z79.02 Long term (current) use of antithrombotics/antiplatelets; Z88.8 Allergy status to other drugs, medicaments and biological substances
CPT/HCPCS: 36415; 71045; 80048; 80053; 81001; 83605; 83735; 83880; 84100; 84484; 85007; 85014; 85018; 85025; 86328; 86850; 87040; 87086; 93005; 94640; 96374; 96375; 99284; G0378; P9016; U0003

== ENCOUNTER 2020-05-20 10:27 | Outpatient (CLI) | payer MEDICARE, SELFPAY ==
[2020-05-20] VITALS (19 sets, daily range): BP systolic 102–148; BP diastolic 42–75; PULSE 51–60; RESP 16–20; TEMP 35.8–36.9; O2SAT 93–98; BMI 30.5
[2020-05-20 11:14] LABS: Hematocrit 29.9 % (37.0-47.0); Hemoglobin 8.7 g/dL (12.2-16.2)
--- NOTE | 2020-05-20 12:30 | PC.NURSE ---
1225 -BLOOD TRANSFUSING AT 100 ML/HR AT THIS TIME.
--- NOTE | 2020-05-20 14:07 | PC.NURSE ---
1255-INCREASED RATE TO 150ML/HR AT THIS TIME.
--- NOTE | 2020-05-20 14:10 | PC.NURSE ---
1325 -INCREASED RATE TO 200ML/HR AT THIS TIME.
--- NOTE | 2020-05-20 14:30 | PC.NURSE ---
1425-BLOOD STILL TRANSFUSING AT 200 ML/HR.
--- NOTE | 2020-05-20 15:24 | PC.NURSE ---
1505-BLOOD TRANSFUSION STARTED AT 100ML/HR AT THIS TIME
--- NOTE | 2020-05-20 15:43 | PC.NURSE ---
1535-INCREASED RATE TO 150 ML/HR AT THIS TIME
--- NOTE | 2020-05-20 16:15 | PC.NURSE ---
1605-INCREASED RATE TO 200 ML/HR AT THIS TIME.
[2020-05-20 18:25] LABS: Hematocrit 34.1 % (37.0-47.0)
[2020-05-20 18:27] LABS: Hemoglobin 10.9 g/dL (12.2-16.2)
== END 2020-05-20 18:29 | disposition home or self-care (01) ==
LOC: LAB 10:28 → INF 10:30
PROVIDERS: Visit Provider Family Medicine
DX: D50.8 Other iron deficiency anemias (principal)
CPT/HCPCS: 36430; 85014; 85018; 86850; P9016

== ENCOUNTER → 2020-05-27 11:53 | Outpatient (CLI) | payer MEDICARE, SELFPAY ==
[2020-05-27 12:15] LABS: Basophils % 0.5 % (0.1-2.0); Eosinophils # 0.3 K/mm3 (0.0-0.4); Eosinophils % 2.9 % (0.1-12.0); Hematocrit 35.2 % (37.0-47.0); Hemoglobin 10.6 g/dL (12.2-16.2); Lymphocytes # 1.5 K/mm3 (0.7-4.5); Lymphocytes % 16.5 % (10-50); Mean Corpuscular HGB Conc 30.2 g/dL (31.8-35.4); Mean Corpuscular Hemoglobin 26.6 pg (27.0-31.2); Mean Corpuscular Volume 88.1 fl (81-99); Monocytes # 0.5 K/mm3 (0.1-1.0); Monocytes % 5.4 % (1.7-9.3); Neutrophils # 6.9 K/mm3 (1.8-7.8); Neutrophils % 74.7 % (37.0-80.0); Platelet Count 199 K/mm3 (142-424); Red Blood Count 3.99 M/mm3 (4.20-5.40); Red Cell Distribution Width 15.7 % (11.5-17.5); White Blood Count 9.2 K/mm3 (4.8-10.8)
[2020-05-27 12:40] LABS: Chloride 102 mmol/L (98-107); Sodium 140 mmol/L (136-145)
[2020-05-27 12:41] LABS: Potassium 4.6 mmoL/L (3.5-5.1)
[2020-05-27 12:43] LABS: Anion Gap 9.6 mEq/L (5-15); Blood Urea Nitrogen 31 mg/dl (7-17); Carbon Dioxide 33 mmol/L (22.0-30.0); Estimated Glomerular Filt Rate 27 ml/min (>60); GFR (African American) 33 ML/MIN (>60)
[2020-05-27 12:44] LABS: Calcium 9.6 mg/dl (8.4-10.2); Glucose 131 mg/dl (74-100)
== END ==
PROVIDERS: Visit Provider Internal Medicine Cardiovascular Disease
DX: C18.9 Malignant neoplasm of colon, unspecified (principal); E78.2 Mixed hyperlipidemia; I11.0 Hypertensive heart disease with heart failure; I25.10 Atherosclerotic heart disease of native coronary artery without angina pectoris; I27.20 Pulmonary hypertension, unspecified; I35.0 Nonrheumatic aortic (valve) stenosis; I65.23 Occlusion and stenosis of bilateral carotid arteries; R06.02 Shortness of breath
CPT/HCPCS: 36415; 80048; 85025

== ENCOUNTER → 2020-06-17 11:09 | Outpatient (CLI) | payer MEDICARE, SELFPAY ==
--- NOTE | 2020-06-17 11:11 | CA_ITS ---
APPROVED REPORT EXAM: Limited 2D Echocardiogram Plant Pathologist: RT Anju(R) Ht: 5 ft 3 in Wt: 160lbs BSA: 1.76 BP: 136/72 mmHg Indications: AO VALUE MEASUREMENTS ONLY, 2D Dimensions LVOT 1.86 cm (M/F) 1.5-2.5 Aortic Valve LVOT Max 127.00 (70-110 cm/s) LVOT VTI 28.66 cm AoV Peak Aayush. 309.00 (50-130 cm/s) AO Peak GR. 38.20 mmHg AO Mean GR. 18.70 (<5 mmHg) AO VTI 74.37 (18-25 cm) ROXI (VTI) 1.05 (2.5-4.5 cm2) Conclusion 1. Limited echocardiogram of the aortic valve is performed. 2. The aortic valve is thickened and calcified with moderate to severe restriction in the leaflet mobility, the mean gradient across aortic valve is 20 mmHg, the valve area is 1.2 cm??? represents moderate aortic stenosis. There is no aortic insufficiency. 3. No significant pericardial effusion noted. Electronically signed by : Terrance Orellana, 06/22/2020 20:57:42
== END ==
PROVIDERS: PCP Family Medicine; Visit Provider Internal Medicine Cardiovascular Disease
DX: C18.9 Malignant neoplasm of colon, unspecified (principal); E78.5 Hyperlipidemia, unspecified; I11.9 Hypertensive heart disease without heart failure; I25.10 Atherosclerotic heart disease of native coronary artery without angina pectoris; I27.20 Pulmonary hypertension, unspecified; I35.0 Nonrheumatic aortic (valve) stenosis; I48.0 Paroxysmal atrial fibrillation; I65.29 Occlusion and stenosis of unspecified carotid artery; R06.00 Dyspnea, unspecified
CPT/HCPCS: 93308

== ENCOUNTER → 2020-07-01 09:44 | Outpatient (CLI) | payer MEDICARE, SELFPAY ==
[2020-07-01 10:15] LABS: Chloride 104 mmol/L (98-107)
[2020-07-01 10:16] LABS: Potassium 4.3 mmoL/L (3.5-5.1); Sodium 141 mmol/L (136-145)
[2020-07-01 10:19] LABS: Anion Gap 10.3 mEq/L (5-15); Blood Urea Nitrogen 20 mg/dl (7-17); Calcium 9.3 mg/dl (8.4-10.2); Carbon Dioxide 31 mmol/L (22.0-30.0); Estimated Glomerular Filt Rate 31 ml/min (>60); GFR (African American) 38 ML/MIN (>60); Glucose 122 mg/dl (74-100)
[2020-07-01 10:27] LABS: NT Pro Brain Natriuretic Pep. 1860 pg/mL (0-450)
[2020-07-01 10:38] LABS: Basophils # 0.2 K/mm3 (0-0.2); Basophils % 1.6 % (0.1-2.0); Eosinophils # 0.4 K/mm3 (0.0-0.4); Eosinophils % 3.8 % (0.1-12.0); Hematocrit 30.3 % (37.0-47.0); Hemoglobin 9.1 g/dL (12.2-16.2); Lymphocytes # 1.3 K/mm3 (0.7-4.5); Lymphocytes % 12.5 % (10-50); Mean Corpuscular HGB Conc 30.1 g/dL (31.8-35.4); Mean Corpuscular Hemoglobin 26.7 pg (27.0-31.2); Mean Corpuscular Volume 88.7 fl (81-99); Mean Platelet Volume 10.3 fl (7.4-10.4); Monocytes # 0.5 K/mm3 (0.1-1.0); Monocytes % 5.1 % (1.7-9.3); Neutrophils # 7.9 K/mm3 (1.8-7.8); Neutrophils % 77.1 % (37.0-80.0); Platelet Count 216 K/mm3 (142-424); Red Blood Count 3.41 M/mm3 (4.20-5.40); Red Cell Distribution Width 15.7 % (11.5-17.5); White Blood Count 10.3 K/mm3 (4.8-10.8)
[2020-07-01 10:46] LABS: Free T4 (Free Thyroxine) 1.77 ng/dl (0.78-2.19)
== END ==
PROVIDERS: Visit Provider Internal Medicine Cardiovascular Disease
DX: Z79.899 Other long term (current) drug therapy (principal); C18.9 Malignant neoplasm of colon, unspecified; E78.5 Hyperlipidemia, unspecified; I11.9 Hypertensive heart disease without heart failure; I25.10 Atherosclerotic heart disease of native coronary artery without angina pectoris; I27.20 Pulmonary hypertension, unspecified; I35.0 Nonrheumatic aortic (valve) stenosis; I48.0 Paroxysmal atrial fibrillation; I65.29 Occlusion and stenosis of unspecified carotid artery; R06.00 Dyspnea, unspecified; I50.9 Heart failure, unspecified
CPT/HCPCS: 80048; 83880; 84439; 84443; 85025

== ENCOUNTER 2020-07-03 17:36 | Outpatient (CLI) | payer MEDICARE, SELFPAY ==
[2020-07-03 17:51] VITALS: BMI 36.9
[2020-07-03 19:14] LABS: Microscopic, Urine URINE MICROSCOPIC (MICROSCOPIC)
[2020-07-03 19:18] LABS: Appearance,Urine CLEAR (Clear); Bilirubin,Urine Negative (Negative); Blood, Urine Negative (Negative); Color,Urine YELLOW (Yellow); Glucose,Urine (UA) Negative (Negative); Ketones,Urine Negative (Negative); Leukocyte Esterase,Urine Negative (Negative); Nitrate,Urine Negative (Negative); Protein,Urine Negative (Negative); Urobilinogen,Urine 0.2 EU/dl (0.2)
== END 2020-07-03 17:54 | disposition home or self-care (01) ==
PROVIDERS: PCP Family Medicine; Visit Provider Nurse Practitioner Family
DX: R33.9 Retention of urine, unspecified (principal)
CPT/HCPCS: 51702; 81001

== ENCOUNTER → 2020-07-28 12:21 | Outpatient (CLI) | payer MEDICARE, SELFPAY ==
--- NOTE | 2020-07-28 12:28 | XR_ITS ---
PROCEDURE: XR CHEST 2V CLINICAL HISTORY: CENTRILOBULAR EMPHYSEMA COMPARISON: CR XR CHEST 2V from 06/02/2019 CR XR CHEST 2V from 10/20/2019 CR XR CHEST PORTABLE from 04/21/2020 FINDINGS: The cardiomediastinal silhouette and pulmonary vascularity are within normal limits. COPD with emphysema and scattered areas fibrotic change with mild prominence of the interstitium. Previously noted patchy areas of infiltrate are no longer apparent. No acute bony abnormalities. IMPRESSION: COPD with emphysema and scattered areas of scarring with no acute finding. Dictated by: Dmitry Martinez MD 07/28/2020 12:46 Dmitry Martinez MD in [facility] 07/28/2020 12:46
== END ==
PROVIDERS: PCP Family Medicine; Visit Provider Family Medicine
DX: J43.2 Centrilobular emphysema (principal)
CPT/HCPCS: 71046

== ENCOUNTER 2020-08-14 10:39 | Outpatient (CLI) | payer MEDICARE, SELFPAY ==
[2020-08-14 11:10] VITALS: BP 158/72; PULSE 63; RESP 18; TEMP 36.9; O2SAT 94
--- NOTE | 2020-08-14 11:19 | PC.NURSE ---
Pt had matthews catheter changed by Dre Mari RN at approx [phone]
== END 2020-08-14 11:10 | disposition home or self-care (01) ==
LOC: OUTP 10:44
PROVIDERS: PCP Family Medicine; Visit Provider Family Medicine
DX: N31.9 Neuromuscular dysfunction of bladder, unspecified (principal)
CPT/HCPCS: G0463

== ENCOUNTER → 2020-08-27 13:47 | Outpatient (CLI) | payer MEDICARE, SELFPAY ==
[2020-08-27 14:57] LABS: Basophils # 0.1 K/mm3 (0-0.2); Basophils % 0.8 % (0.1-2.0); Eosinophils # 0.1 K/mm3 (0.0-0.4); Eosinophils % 1.6 % (0.1-12.0); Hematocrit 28.7 % (37.0-47.0); Hemoglobin 8.9 g/dL (12.2-16.2); Lymphocytes # 1.6 K/mm3 (0.7-4.5); Mean Corpuscular HGB Conc 31.1 g/dL (31.8-35.4); Mean Corpuscular Volume 90.1 fl (81-99); Mean Platelet Volume 9.5 fl (7.4-10.4); Monocytes # 0.4 K/mm3 (0.1-1.0); Monocytes % 4.8 % (1.7-9.3); Neutrophils % 72.8 % (37.0-80.0); Platelet Count 229 K/mm3 (142-424); Red Blood Count 3.19 M/mm3 (4.20-5.40); White Blood Count 8.2 K/mm3 (4.8-10.8)
[2020-08-27 15:18] LABS: Alanine Aminotransferase 18 U/L (12-78); Albumin Level 3.4 g/dl (3.5-5.0); Albumin/Globulin Ratio 1.4 (1.1-1.8); Alkaline Phosphatase 64 U/L (38-126); Anion Gap 9.9 mEq/L (5-15); Aspartate Amino Transferase 35 U/L (14-36); Bilirubin,Total 0.4 mg/dl (0.2-1.3); Blood Urea Nitrogen 19 mg/dl (7-17); Calcium 8.5 mg/dl (8.4-10.2); Carbon Dioxide 32 mmol/L (22.0-30.0); Chloride 102 mmol/L (98-107); Estimated Glomerular Filt Rate 34 ml/min (>60); GFR (African American) 41 ML/MIN (>60); Globulin 2.5 g/dL (1.3-3.2); Glucose 94 mg/dl (74-100); Potassium 4.9 mmoL/L (3.5-5.1); Sodium 139 mmol/L (136-145); Total Protein,Serum 5.9 g/dl (6.3-8.2)
[2020-08-29 10:12] LABS: CEA 18.8 ng/mL (0.0-4.7)
== END ==
PROVIDERS: Visit Provider Internal Medicine Medical Oncology
DX: C18.9 Malignant neoplasm of colon, unspecified (principal)
CPT/HCPCS: 36415; 80053; 82378; 85025

== ENCOUNTER 2020-08-30 15:30 | Outpatient (RCR) | payer MEDICARE, SELFPAY ==
--- NOTE | 2020-08-23 14:50 | HMH.PTOPEV ---
PT Outpatient Evaluation Rehab PT Outpatient Evaluation Start: 08/23/20 14:37 Freq: Status: Active Protocol: Document 08/23/20 14:38 JIMI (Rec: 08/23/20 14:50 JIMI [id number]) Electronically Signed By Troy Salas, PT 08/23/20 14:38 Outpatient Therapy Subjective History Subjective History Pt reports generalized and progressive bilateral LE weakness for ~3-4months. Pt reports intermittent episodes of LE's 'giving out, and I've gotta sit, or I'll fall'. Pt reports some weakness related to COPD (on O2 w/nasal cannula ), and more recently chemo rx for colon cx. Pt also reports neurogenic bladder condition which requires catheter., and chronic LBP. Chief Complaint Pain,Gives out/Unstable, Weakness Symptom Type Ache,Sharp,Dull Symptoms Relieved By Rest/Positioning,Heat Symptoms Aggravated By Standing,Walking Prior Functional Limitations Standing,Walking,Balance Current Functional Limitations Standing,Walking,Balance Symptom Description Intermittent Level of pain today (0-10) 4 Pain scale - at its best (0-10) 3 Pain scale - at its worst (0-10) 6 Lumbopelvic Eval Assistive device Assistive Devices Wheelchair Gait Observation General Gait Pattern Observation Wide Based Gait,Ataxic Gait, Shuffling Step Palapation tenderness bilateral paraspinal tenderness Yes: 3/4 Lumbar/Sacral Palpation Findings Tenderness,Muscle Guarding Accessory Movement L-spine Vertebrae Accessory Movements Central P/A [place] that Elicit Symptoms L4 bilateral L5 bilateral Manual Muscle Test Bilateral Knee Extension Strength Grade 4 Good Knee Flexion Strength Grade 4- Good- Hip Flexion Strength Grade 3+ Fair+ Hip Abduction Strength Grade 3+ Fair+ Hip Adduction Strength Grade 3+ Fair+ Hip External Rotation Strength Grade 3+ Fair+ Hip Internal Rotation Strength Grade 4- Good- Extensor Hallucis Longus Strength Grade 5 Normal Ankle Dorsiflexion Strength Grade 5 Normal Gastronemius/Soleus Strength Grade 4- Good- Tinetti Sitting Balance Sitting Balance Steady, safe Arising from Chair Ability to Arise Able, uses arms to help Attempts to Arise Arises on 1st attempt Standing Balance Immediate Standing Balance Unsteady Standing Balance Unsteady Nudged
== END 2020-08-30 15:35 | disposition home or self-care (01) ==
LOC: PT 15:30
PROVIDERS: PCP Family Medicine; Visit Provider Internal Medicine Medical Oncology
DX: R53.1 Weakness (principal)
CPT/HCPCS: 97110; 97163

== ENCOUNTER → 2020-09-18 10:40 | Outpatient (CLI) | payer MEDICARE, SELFPAY | LOC: OBOUT 10:45 → INF 09-20 07:57 | PROVIDERS: PCP Family Medicine; Visit Provider Family Medicine | DX: C18.9 Malignant neoplasm of colon, unspecified (principal) ==

== ENCOUNTER → 2020-10-01 10:38 | Outpatient (CLI) | payer MEDICARE, SELFPAY ==
[2020-10-01 11:20] LABS: Basophils # 0.1 K/mm3 (0-0.2); Basophils % 0.7 % (0.1-2.0); Eosinophils # 0.1 K/mm3 (0.0-0.4); Eosinophils % 1.4 % (0.1-12.0); Hematocrit 30.3 % (37.0-47.0); Hemoglobin 9.5 g/dL (12.2-16.2); Lymphocytes # 1.2 K/mm3 (0.7-4.5); Lymphocytes % 14.3 % (10-50); Mean Corpuscular HGB Conc 31.4 g/dL (31.8-35.4); Mean Corpuscular Volume 95.5 fl (81-99); Mean Platelet Volume 9.5 fl (7.4-10.4); Monocytes # 0.4 K/mm3 (0.1-1.0); Monocytes % 4.8 % (1.7-9.3); Neutrophils # 6.5 K/mm3 (1.8-7.8); Neutrophils % 78.7 % (37.0-80.0); Platelet Count 155 K/mm3 (142-424); Red Blood Count 3.17 M/mm3 (4.20-5.40); Red Cell Distribution Width 21.5 % (11.5-17.5); White Blood Count 8.2 K/mm3 (4.8-10.8)
[2020-10-01 11:36] LABS: Chloride 101 mmol/L (98-107); Potassium 3.6 mmoL/L (3.5-5.1); Sodium 140 mmol/L (136-145)
[2020-10-01 11:38] LABS: Blood Urea Nitrogen 20 mg/dl (7-17); Estimated Glomerular Filt Rate 27 ml/min (>60); GFR (African American) 33 ML/MIN (>60)
[2020-10-01 11:39] LABS: Alanine Aminotransferase 40 U/L (12-78); Albumin Level 3.4 g/dl (3.5-5.0); Albumin/Globulin Ratio 1.4 (1.1-1.8); Alkaline Phosphatase 61 U/L (38-126); Anion Gap 9.6 mEq/L (5-15); Aspartate Amino Transferase 59 U/L (14-36); Bilirubin,Total 0.5 mg/dl (0.2-1.3); Calcium 8.8 mg/dl (8.4-10.2); Carbon Dioxide 33 mmol/L (22.0-30.0); Globulin 2.5 g/dL (1.3-3.2); Glucose 143 mg/dl (74-100); Total Protein,Serum 5.9 g/dl (6.3-8.2)
== END ==
PROVIDERS: Visit Provider Internal Medicine Medical Oncology
DX: C18.9 Malignant neoplasm of colon, unspecified (principal)
CPT/HCPCS: 36415; 80053; 85025

== ENCOUNTER 2020-10-23 01:24 | Emergency (ER) | payer MEDICARE, SELFPAY ==
[2020-10-23 01:23] VITALS: BP 127/44; PULSE 59; RESP 21; TEMP 36.6; O2SAT 98; BMI 27.4
[2020-10-23 01:26] VITALS: BMI 27.4
--- NOTE | 2020-10-23 01:27 | CT_ITS ---
PROCEDURE INFORMATION: Exam: CT Cervical Spine Without Contrast Exam date and time: 10/23/2020 1:27 AM Age: 75 years old Clinical indication: Injury or trauma; Fall; Blunt trauma; Injury date: 10/23/2020; Injury details: Fell in bathroom landed on left side; Additional info: Fall, hit head and ribs, no loc TECHNIQUE: Imaging protocol: Computed tomography images of the cervical spine without contrast. Radiation optimization: All CT scans at this facility use at least one of these dose optimization techniques: automated exposure control; mA and/or kV adjustment per patient size (includes targeted exams where dose is matched to clinical indication); or iterative reconstruction. COMPARISON: CT HEAD/BRAIN WO CON 10/23/2020 2:19 AM FINDINGS: Bones/joints: Mild C5 and mild C6 vertebral body height loss. Inferior C4, superior and inferior C5, and superior and inferior C6 vertebral body endplate hypertrophy. No acute fracture or jumped facet. Multilevel facet joint hypertrophy. Discs/Spinal canal/Neural foramina: Predominantly mid cervical degenerative changes. Mild C3-C4, C4-C5 and C7-T1 disc height loss. Moderate C5-C6 and C6-C7 disc height loss. At C5-C6, spinal canal AP diameter 9 mm consistent with relative spinal stenosis. Prevertebral Space: No prevertebral edema. Trachea: Airway unremarkable. Lungs: Lung apices are normal. Pleural spaces: No apical pneumothorax. Vasculature: Carotid and vertebrobasilar vascular calcification. Soft tissues: Neck soft tissues are unremarkable. IMPRESSION: 1. No acute cervical spine fracture or jumped facet. 2. Multilevel cervical spondylosis with mid cervical relative spinal stenosis.
--- NOTE | 2020-10-23 01:27 | XR_ITS ---
PROCEDURE INFORMATION: Exam: XR Pelvis Exam date and time: 10/23/2020 1:27 AM Age: 75 years old Clinical indication: Injury or trauma; Fall; Blunt trauma (contusions or hematomas); Bilateral; Pelvic region; Injury date: 10/23/2020; Injury details: Fell in bathroom onto left side; Additional info: Fall, hit head and ribs, no loc TECHNIQUE: Imaging protocol: XR pelvis. Views: 1 or 2 view. Total images: 1 COMPARISON: CT ABDOMEN PELVIS WO CON 10/23/2020 2:32 AM FINDINGS: Tubes, catheters and devices: Urinary bladder catheter present. Bones/joints: Old pelvic fractures are evident. Soft tissues: Unremarkable. IMPRESSION: No acute fracture identified.
--- NOTE | 2020-10-23 01:27 | CT_ITS ---
PROCEDURE INFORMATION: Exam: CT Head Without Contrast Exam date and time: 10/23/2020 1:27 AM Age: 75 years old Clinical indication: Injury or trauma; Fall; Blunt trauma (contusions or hematomas); Without loss of consciousness; Injury date: 10/23/2020; Injury details: Fell hit left frontal head; Additional info: Fall, hit head and ribs, no loc TECHNIQUE: Imaging protocol: Computed tomography of the head without contrast. Radiation optimization: All CT scans at this facility use at least one of these dose optimization techniques: automated exposure control; mA and/or kV adjustment per patient size (includes targeted exams where dose is matched to clinical indication); or iterative reconstruction. COMPARISON: CT HEAD/BRAIN WO CON 04/06/2020 5:22 PM FINDINGS: Brain: There is no evidence of acute intracranial hemorrhage demonstrated on the examination. No evidence of acute cerebral ischemia. Left internal capsule prominent perivascular space. Appearance stable. White matter and periventricular hypoattenuation likely secondary to microangiopathic gliosis. Mild parenchymal atrophy. Cortical sulci and subarachnoid cisterns somewhat prominent. Cerebral ventricles: Ventricles somewhat prominent. Paranasal sinuses: Visualized sinuses are unremarkable. No fluid levels. Mastoid air cells: Visualized mastoid air cells are well aerated. Orbital cavity: Right orbital lens implant. Vasculature: Parasellar carotid and vertebrobasilar atherosclerotic calcification. Bones/joints: Unremarkable. No acute calvarial fracture. Soft tissues: Unremarkable. Dental: Edentulous. IMPRESSION: No acute hemorrhage or ischemia. Overall appearance stable.
[2020-10-23 01:57] LABS: Basophils % 0.5 % (0.1-2.0); Eosinophils # 0.1 K/mm3 (0.0-0.4); Hematocrit 32.2 % (37.0-47.0); Hemoglobin 10.1 g/dL (12.2-16.2); Lymphocytes # 1.4 K/mm3 (0.7-4.5); Lymphocytes % 17.6 % (10-50); Mean Corpuscular HGB Conc 31.5 g/dL (31.8-35.4); Mean Corpuscular Hemoglobin 30.6 pg (27.0-31.2); Mean Platelet Volume 9.6 fl (7.4-10.4); Monocytes # 0.5 K/mm3 (0.1-1.0); Monocytes % 6.5 % (1.7-9.3); Neutrophils # 5.7 K/mm3 (1.8-7.8); Neutrophils % 74.4 % (37.0-80.0); Platelet Count 141 K/mm3 (142-424); Red Blood Count 3.32 M/mm3 (4.20-5.40); Red Cell Distribution Width 22.4 % (11.5-17.5); White Blood Count 7.7 K/mm3 (4.8-10.8)
--- NOTE | 2020-10-23 01:59 | HMH.EDFALL ---
ED Disposition Clinical Impression: Hypokalemia Head contusion Qualifiers: Encounter type: initial encounter Contusion of head detail: scalp Qualified Code(s): S00.03XA - Contusion of scalp, initial encounter Acute neck sprain Qualifiers: Encounter type: initial encounter Qualified Code(s): S13.9XXA - Sprain of joints and ligaments of unspecified parts of neck, initial encounter Contusion, chest wall Qualifiers: Encounter type: initial encounter Laterality: left Qualified Code(s): S20.212A - Contusion of left front wall of thorax, initial encounter Concussion without loss of consciousness Qualifiers: Encounter type: initial encounter Qualified Code(s): S06.0X0A - Concussion without loss of consciousness, initial encounter Contusion, abdominal wall Qualifiers: Encounter type: initial encounter Qualified Code(s): S30.1XXA - Contusion of abdominal wall, initial encounter Chronic renal impairment Qualifiers: Chronic kidney disease stage: stage 4 (severe) Qualified Code(s): N18.4 - Chronic kidney disease, stage 4 (severe) Disposition: Home, Self-Care Condition on Discharge: Good Instructions: How to Prevent Falls Additional Instructions: resume prev orders and see pcp for follow up Referrals: Anita Joel MD [Primary Care Provider] - - Critical Care Critical Care Time: No Attestation: On 10/23/20, the high probability of a clinically significant, sudden or life threatening deterioration of the following system(s) required my full and direct attention, intervention and personal management. The time I documented below is in addition to time spent performing reported procedures but includes the following listed in this critical care notation. Medical Decision Making - Medical Records Medical records reviewed: Yes: I reviewed the patient's medical records. - Doroteo Inquiry Pt receiving controlled substance: No Vital Signs: 10/23/20 01:23 Temperature 97.8 F Temperature Source Oral Pulse Rate [Right] 59 L Respiratory Rate 21 Blood Pressure [Right Arm] 127/44 L Blood Pressure Mean [Right Arm] 71 Blood Pressure Source [Right Arm] Automatic Cuff 02 Sat by Pulse Oximetry 98 Oxygen Delivery Method Nasal Cannula Oxygen Flow Rate (LPM) 3 - Lab Data Lab results reviewed: Yes: I reviewed the patient's lab results. Lab Results 10/23/20 01:48: WBC 7.7, RBC 3.32 L, Hgb 10.1 L, Hct 32.2 L, MCV 97.0, MCH 30.6, MCHC 31.5 L, RDW 22.4 H, Plt Count 141 L, MPV 9.6, Neut % (Auto) 74.4, Lymph % (Auto) 17.6, [place] % (Auto) 6.5, Eos % (Auto) 1.0, Baso % (Auto) 0.5, Neut # (Auto) 5.7, Lymph # (Auto) 1.4, [place] # (Auto) 0.5, Eos # (Auto) 0.1, Baso # (Auto) 0.0 10/23/20 01:48: Sodium 139, Potassium 2.9 L*, Chloride 102, Carbon Dioxide 31 H, Anion Gap 8.9, BUN 19 H, Creatinine 2.00 H, Estimated Creat Clear 27, Estimated GFR 24 L, Est GFR ( Amer) 29 L, Glucose 106 H, Calcium 8.8, Amylase 39, Lipase 130 Result diagrams: 10/23/20 01:48 10/23/20 01:48 Orders (Tests/Meds): ED MEDICATIONS Generic Name Dose Route Start Last Admin Trade Name Freq PRN Reason Stop Dose Admin Sodium Chloride 1,000 mls @ 999 mls/hr 10/23/20 02:30 10/23/20 01:30 Sod Chlor 0.9% 1000ml Bag IV 10/23/20 03:30 999 mls/hr .Q1H1M DANNI Administration - Radiology Data #1 Image(s): Chest, Pelvis Image Reviewed: Yes I have reviewed radiologist's interpretation Preliminary Findings: No Fracture Seen - CT Data CT Scan: Head, C-Spine, Abdomen, Pelvis, Chest Time Received: 03:[address] Reviewed: Yes: I have viewed the radiologist's interpretation Preliminary Findings: No Fracture Seen Medical Decision Narrative: no fx seen on xrays and stable exam Fall HPI - General Chief Complaint: Fall Stated Complaint: Fall, no LOC, head and rib pain Time Seen by Provider: 10/23/20 01:40 Mode of Arrival: EMS Source of Information: Patient, EMS, Medical Record Limitations: No Limitations Description of Symptoms (Recalled
[2020-10-23 02:00] VITALS: BP 127/47; PULSE 56; O2SAT 99
--- NOTE | 2020-10-23 02:00 | CT_ITS ---
PROCEDURE INFORMATION: Exam: CT Chest Without Contrast; Diagnostic Exam date and time: 10/23/2020 2:00 AM Age: 75 years old Clinical indication: Injury or trauma; Fall; Blunt trauma (contusions or hematomas); Injury date: 10/23/2020; Injury details: Fell in bathroom and landed on left side left rib pain; Prior surgery; Surgery date: 6+ months; Surgery type: RT mastectomy and reconstruction; Additional info: Fall, no loc, rib pain TECHNIQUE: Imaging protocol: Diagnostic computed tomography of the chest without contrast. 3D rendering (Not supervised by radiologist): MIP and/or 3D reconstructed images were created by the technologist. Total images: 299 Radiation optimization: All CT scans at this facility use at least one of these dose optimization techniques: automated exposure control; mA and/or kV adjustment per patient size (includes targeted exams where dose is matched to clinical indication); or iterative reconstruction. COMPARISON: CR XR CHEST 2V 07/28/2020 12:30 PM FINDINGS: Lungs: Mild centrilobular emphysematous changes are present. Scattered subsegmental atelectasis. Pleural spaces: Unremarkable. No pneumothorax. No pleural effusion. Heart: Unremarkable. No cardiomegaly. No pericardial effusion. Coronary arteries: Calcific coronary artery disease is evident. Aorta: Unremarkable. No aortic aneurysm. Lymph nodes: Unremarkable. No enlarged lymph nodes. Bones/joints: Healed old left 9th rib fracture. Healed old right 8th through 10th rib fractures. Mild thoracic spondylosis. Soft tissues: TRAM flap right breast reconstruction. Other findings: Atherosclerosis is evident. IMPRESSION: 1. Mild centrilobular emphysematous changes are present. 2. Scattered subsegmental atelectasis. 3. No acute traumatic injuries of the chest identified. COMMENTS: Please see CT abdomen regarding additional findings.
[2020-10-23 02:06] LABS: Amylase 39 U/L (30-110); Anion Gap 8.9 mEq/L (5-15); Blood Urea Nitrogen 19 mg/dl (7-17); Calcium 8.8 mg/dl (8.4-10.2); Carbon Dioxide 31 mmol/L (22.0-30.0); Chloride 102 mmol/L (98-107); Creatinine Clearance Estimated 27 mL/min (50-200); Estimated Glomerular Filt Rate 24 ml/min (>60); GFR (African American) 29 ML/MIN (>60); Glucose 106 mg/dl (74-100); Lipase 130 U/L (23-300); Sodium 139 mmol/L (136-145)
[2020-10-23 02:09] LABS: Potassium 2.9 mmoL/L (3.5-5.1)
--- NOTE | 2020-10-23 02:13 | XR_ITS ---
PROCEDURE INFORMATION: Exam: XR Chest Exam date and time: 10/23/2020 2:13 AM Age: 75 years old Clinical indication: Injury or trauma; Fall; Blunt trauma (contusions or hematomas); Injury date: 10/23/2020; Injury details: Fell landed on left side left rib pain; Additional info: Fall protocol TECHNIQUE: Imaging protocol: XR of the chest. Views: 4 or more views. Total images: 1 COMPARISON: CT CHEST WO CON 10/23/2020 2:26 AM FINDINGS: Lungs: Pulmonary hyperinflation is evident, suspicious for COPD. Scattered bilateral patchy pulmonary opacities related to atelectasis versus potential early foci of pneumonia. Pleural spaces: Unremarkable. No pleural effusion. No pneumothorax. Heart/Mediastinum: Unremarkable. No cardiomegaly. Vasculature: Atherosclerosis is evident. Bones/joints: Suspect healed lateral 9th rib fracture. IMPRESSION: 1. Pulmonary hyperinflation is evident, suspicious for COPD. 2. Scattered bilateral patchy pulmonary opacities related to atelectasis versus potential early foci of pneumonia. Recommend attention on any followup exams. 3. No acute traumatic injuries identified.
--- NOTE | 2020-10-23 02:13 | CT_ITS ---
PROCEDURE INFORMATION: Exam: CT Abdomen And Pelvis Without Contrast Exam date and time: 10/23/2020 2:13 AM Age: 75 years old Clinical indication: Injury or trauma; Fall; Blunt; Generalized; Injury date: 10/23/2020; Injury details: Fell in bathroom this am landed on left side; Additional info: Fall, no loc, rib abd pain TECHNIQUE: Imaging protocol: Computed tomography of the abdomen and pelvis without contrast. Total images: 303 Radiation optimization: All CT scans at this facility use at least one of these dose optimization techniques: automated exposure control; mA and/or kV adjustment per patient size (includes targeted exams where dose is matched to clinical indication); or iterative reconstruction. COMPARISON: CT ABDOMEN PELVIS WO CON 05/11/2019 4:20 PM FINDINGS: Tubes, catheters and devices: Urinary bladder catheter present. Coronary arteries: Calcific coronary artery disease is evident. Liver: There is mild increased hepatic parenchymal density, which can be seen with amiodarone therapy and metallic storage disorders. Gallbladder and bile ducts: Material in the gallbladder lumen is likely related to sludge or small stones, without cholecystitis. Pancreas: Normal. No ductal dilation. Spleen: 2.4 cm cystic structure appears benign at the splenic hilum. Adrenal glands: Normal. No mass. Kidneys and ureters: Nonobstructive left sided kidney stone measures 4 mm. Stomach and bowel: There is indistinctness and wall thickening of the distal transverse colon suspected on axial images 29 through 39 with differential diagnosis of colon mass or mild focal colitis. Appendix: Normal appendix. Intraperitoneal space: Unremarkable. No free air. No significant fluid collection. Vasculature: Aortic valve calcification is present, often associated with aortic stenosis. Atherosclerosis is evident. Lymph nodes: Unremarkable. No enlarged lymph nodes. Urinary bladder: Unremarkable as visualized. Reproductive: Unremarkable as visualized. Bones/joints: Deformity of the lateral left 9th rib is healed with thin lucency, most likely related to remote healed fracture and unlikely to be related to acute fracture at the level of a previously healed fracture. Old pelvic fractures are evident. Chronic appearing compression fracture of L1. Moderate spinal degenerative changes. Facet joint degenerative changes are present. Multifocal central canal and neural foraminal stenosis, due to degeneration. Soft tissues: Anterior left thigh musculature benign lipoma. IMPRESSION: 1. There is indistinctness and wall thickening of the distal transverse colon suspected on axial images 29 through 39 with differential diagnosis of colon mass or mild focal colitis. If not recently performed, colonoscopy could be considered after the acute illness to further evaluate. This is not likely to be posttraumatic. 2. Deformity of the lateral left 9th rib is healed with thin transverse lucency, most likely related to remote healed fracture and unlikely to be related to acute fracture at the level of a previously healed fracture. Recommend correlation for focal tenderness.
--- NOTE | 2020-10-23 02:16 | PC.NURSE ---
Dr. King notified of critical labs
--- NOTE | 2020-10-23 03:00 | PC.NURSE ---
pt returned from from radiology via stretcher.
[2020-10-23 03:45] VITALS: BP 112/46; PULSE 58; O2SAT 95
--- NOTE | 2020-10-23 03:55 | PC.NURSE ---
called son, Rogelio Bedoya, and gave update on pt condition and notified that pt would be discharged home.
[2020-10-23 03:58] VITALS: BP 135/56; PULSE 59; RESP 20; TEMP 36.7; O2SAT 97
[2020-10-23 04:00] VITALS: BP 135/46; PULSE 59; O2SAT 94
--- NOTE | 2020-10-23 05:01 | PC.NURSE ---
At 0439 Pt was discharged via wheelchair and son was in waiting room with pt's shoes and O2 concentrator. H O2 tank removed and pt's home o2 placed and shoes placed onto pt. Wheeled pt to the car and assisted pt to standing and pt stated I can't move my feet . Pt's son stated at this point, I can't take her home like this, there is something wrong. I mean I can man-handle her into the house, but then I would just have to manhandle her back out to you all. So can't yall admit her overnight and see what else is wrong with her. This is not her normal at all.
== END 2020-10-23 04:39 | disposition home or self-care (01) ==
PROVIDERS: Emergency Provider Emergency Medicine; PCP Family Medicine
DX: S06.0X0A Concussion without loss of consciousness, initial encounter (principal); S13.9XXA Sprain of joints and ligaments of unspecified parts of neck, initial encounter; S20.212A Contusion of left front wall of thorax, initial encounter; S30.1XXA Contusion of abdominal wall, initial encounter; W01.0XXA Fall on same level from slipping, tripping and stumbling without subsequent striking against object, initial encounter; Y92.012 Bathroom of single-family (private) house as the place of occurrence of the external cause; N18.4 Chronic kidney disease, stage 4 (severe); E87.6 Hypokalemia; I48.0 Paroxysmal atrial fibrillation; I50.9 Heart failure, unspecified; J44.9 Chronic obstructive pulmonary disease, unspecified; E78.5 Hyperlipidemia, unspecified; I10 Essential (primary) hypertension; Z87.891 Personal history of nicotine dependence
CPT/HCPCS: 70450; 71045; 71250; 72125; 72170; 74176; 80048; 82150; 83690; 85025; 96365; 99283

== ENCOUNTER → 2020-12-22 11:44 | Outpatient (CLI) | payer MEDICARE, SELFPAY ==
[2020-12-22 11:50] LABS: Microscopic, Urine URINE MICROSCOPIC (MICROSCOPIC)
[2020-12-22 13:07] LABS: Albumin Level 2.8 g/dl (3.5-5.0); Anion Gap 11.8 mEq/L (5-15); Basophils # 0.1 K/mm3 (0-0.2); Basophils % 0.5 % (0.1-2.0); Blood Urea Nitrogen 18 mg/dl (7-17); Calcium 9.2 mg/dl (8.4-10.2); Carbon Dioxide 26 mmol/L (22.0-30.0); Chloride 104 mmol/L (98-107); Eosinophils # 0.1 K/mm3 (0.0-0.4); Eosinophils % 0.4 % (0.1-12.0); Estimated Glomerular Filt Rate 27 ml/min (>60); GFR (African American) 33 ML/MIN (>60); Glucose 104 mg/dl (74-100); Hemoglobin 8.9 g/dL (12.2-16.2); Lymphocytes # 1.1 K/mm3 (0.7-4.5); Lymphocytes % 9.2 % (10-50); Mean Corpuscular HGB Conc 29.5 g/dL (31.8-35.4); Mean Corpuscular Hemoglobin 27.8 pg (27.0-31.2); Mean Corpuscular Volume 94.2 fl (81-99); Mean Platelet Volume 10.2 fl (7.4-10.4); Monocytes # 0.6 K/mm3 (0.1-1.0); Monocytes % 4.6 % (1.7-9.3); Neutrophils # 10.5 K/mm3 (1.8-7.8); Neutrophils % 85.3 % (37.0-80.0); Phosphorous 3.7 mg/dl (2.5-4.5); Platelet Count 386 K/mm3 (142-424); Potassium 3.8 mmoL/L (3.5-5.1); Red Blood Count 3.18 M/mm3 (4.20-5.40); Red Cell Distribution Width 15.6 % (11.5-17.5); Sodium 138 mmol/L (136-145); White Blood Count 12.3 K/mm3 (4.8-10.8)
[2020-12-22 13:13] LABS: MANUAL DIFFERENTIAL MANUAL DIFFERENTIAL (MANUAL DIFF)
[2020-12-22 14:01] LABS: Intact Parathyroid Hormone 58.1 pg/mL (7.5-53.5)
[2020-12-22 14:16] LABS: 25-OH Vitamin D, Total 27.3 ng/mL (30-100)
[2020-12-22 15:01] LABS: Appearance,Urine CLOUDY (Clear); Bilirubin,Urine Negative (Negative); Blood, Urine TRACE-I (Negative); Color,Urine YELLOW (Yellow); Glucose,Urine (UA) Negative (Negative); Ketones,Urine Negative (Negative); Leukocyte Esterase,Urine 2+ (Negative); Nitrate,Urine Negative (Negative); PH,Urine 5.5 (5.0-8.5); Protein,Urine Negative (Negative); Urobilinogen,Urine 0.2 EU/dl (0.2)
[2020-12-22 15:02] LABS: Creatinine,Urine Random 83 mg/dL (Not Estab.)
[2020-12-22 15:52] LABS: Bacteria,Urine 3+ /lpf; Squamous Epithelial Cell,Urine Occasional #/hpf (0-5); WBC,Urine TNTC #/hpf (0-3)
[2020-12-22 23:33] LABS: Lymphocytes % 13 % (10-50); Monocytes % 9 % (2-9); Neutrophils % 78 % (42-76); Total Cells Counted 100
[2020-12-22 23:34] LABS: Hypochromasia 1+; Platelet Estimate Normal
== END ==
PROVIDERS: Visit Provider Internal Medicine Nephrology
DX: N18.4 Chronic kidney disease, stage 4 (severe) (principal); E55.9 Vitamin D deficiency, unspecified; R82.90 Unspecified abnormal findings in urine; B37.89 Other sites of candidiasis
CPT/HCPCS: 36415; 80069; 81001; 82306; 82570; 83970; 84155; 85007; 85025; 87086

== ENCOUNTER → 2020-12-27 15:21 | Outpatient (POV) | payer MEDICARE, SELFPAY | PROVIDERS: Visit Provider Internal Medicine Nephrology | DX: Z00.00 Encounter for general adult medical examination without abnormal findings (principal) ==

== ENCOUNTER 2020-12-27 16:01 | Emergency (ER) | payer MEDICARE, SELFPAY ==
[2020-12-27] VITALS (9 sets, daily range): BP systolic 108–145; BP diastolic 41–55; PULSE 57–68; RESP 12–16; TEMP 36.6–36.8; O2SAT 98–100; BMI 23.2
--- NOTE | 2020-12-27 16:14 | ECG_ITS ---
APPROVED REPORT Exam: Resting ECG HR:60 bpm ECG Measurements Heart Rate 60 AXES CO 182 P 79 QRSd 84 QRS 118 QT 450 T -6 QTc 450 Conclusion Normal sinus rhythm Right axis deviation Septal infarct, age undetermined Abnormal ECG Electronically signed by : Wild Menjivar MD 12/29/2020 17:30:25
--- NOTE | 2020-12-27 17:00 | CT_ITS ---
PROCEDURE INFORMATION: Exam: CT Abdomen And Pelvis Without Contrast Exam date and time: 12/27/20 05:00 PM Age: 75 years old Clinical indication: Abdominal pain; Generalized; Additional info: Nausea/pain/ weakness// permanent cath for urine. TECHNIQUE: Imaging protocol: Computed tomography of the abdomen and pelvis without contrast. Radiation optimization: All CT scans at this facility use at least one of these dose optimization techniques: automated exposure control; mA and/or kV adjustment per patient size (includes targeted exams where dose is matched to clinical indication); or iterative reconstruction. COMPARISON: CT ABDOMEN PELVIS WO CON 10/23/20 02:32 AM FINDINGS: Tubes, catheters and devices: Mcdonald catheter in the bladder. Lungs: Lung bases appear clear. Heart: No significant coronary calcifications. No cardiomegaly. No significant pericardial effusion. Liver: Normal. No mass. Gallbladder and bile ducts: Cholelithiasis. No ductal dilation. Pancreas: Normal. No ductal dilation. Spleen: Stable 2.4 cm splenic cyst. No splenomegaly. Adrenal glands: Normal. No mass. Kidneys and ureters: Left lower pole caliceal calcification 4 mm unchanged. No hydronephrosis. Stomach and bowel: Unremarkable. No obstruction. No mucosal thickening. Appendix: No evidence of appendicitis. Intraperitoneal space: Unremarkable. No free air. No significant fluid collection. Retroperitoneal space: No significant retroperitoneal inflammatory changes are noted. Vasculature: Unremarkable. No abdominal aortic aneurysm. Lymph nodes: Unremarkable. No enlarged lymph nodes. Urinary bladder: Decompressed by Mcdonald catheter. Chronic bladder wall thickening, correlate with UA for cystitis. Reproductive: Unremarkable as visualized. Bones/joints: Healed fracture left inferior pubic ramus. No acute fracture. Soft tissues: Unremarkable. IMPRESSION: 1. Bladder wall thickening. Correlate with urinalysis. 2. Left lower pole nonobstructive renal calculus. 3. 2.4 cm stable splenic cyst. 4. Cholelithiasis.
--- NOTE | 2020-12-27 17:06 | XR_ITS ---
PROCEDURE INFORMATION: Exam: XR Chest Exam date and time: 12/27/20 05:06 PM Age: 75 years old Clinical indication: Pain; Chest pressure; Additional info: Chf nausea and pain TECHNIQUE: Imaging protocol: XR of the chest. Views: 1 view. COMPARISON: CR XR CHEST AP 10/23/20 02:38 AM FINDINGS: Lungs: Left lower lobe atelectasis new from comparison. Patchy left lower lobe infiltrate, new from comparison. Hyperexpanded lungs without infiltrate. Pleural spaces: Unremarkable. No pleural effusion. No pneumothorax. Heart/Mediastinum: Cardiomegaly. Bones/joints: Unremarkable. IMPRESSION: Patchy left lower lobe infiltrate, new from comparison.
--- NOTE | 2020-12-27 17:09 | HMH.EDGENADL ---
ED Disposition Clinical Impression: Cystitis Disposition: Home, Self-Care Condition on Discharge: Good Instructions: Interstitial Cystitis (Alternative Therapy) Prescriptions: Cefdinir [Omnicef 300mg Capsule] 300 mg PO BID #28 cap Transmission Status: Received by [facility][id number] Referrals: Anita Joel MD [Primary Care Provider] - - Critical Care Critical Care Time: No Attestation: On 12/27/20, the high probability of a clinically significant, sudden or life threatening deterioration of the following system(s) required my full and direct attention, intervention and personal management. The time I documented below is in addition to time spent performing reported procedures but includes the following listed in this critical care notation. Medical Decision Making - Medical Records Medical records reviewed: Yes: I reviewed the patient's medical records. - Doroteo Inquiry Pt receiving controlled substance: No Vital Signs: 12/27/20 16:03 12/27/20 16:20 12/27/20 16:45 Temperature 97.8 F Temperature Source Oral Pulse Rate 57 L 61 Pulse Rate [Left Radial] 62 Respiratory Rate 14 12 12 Blood Pressure 135/53 L 141/55 H Blood Pressure [Right Arm] 145/52 H Blood Pressure Mean Blood Pressure Mean [Right Arm] 83 Blood Pressure Source Blood Pressure Source [Right Arm] Automatic Cuff Blood Pressure Position Blood Pressure Position [Right Arm] Sitting 02 Sat by Pulse Oximetry 98 100 100 Oxygen Delivery Method Room Air Oxygen Flow Rate (LPM) 12/27/20 17:30 12/27/20 18:00 12/27/20 18:30 Temperature Temperature Source Pulse Rate 64 62 68 Pulse Rate [Left Radial] Respiratory Rate 16 16 16 Blood Pressure 135/52 L 131/51 L 143/54 H Blood Pressure [Right Arm] Blood Pressure Mean 99 89 83 Blood Pressure Mean [Right Arm] Blood Pressure Source Blood Pressure Source [Right Arm] Blood Pressure Position Blood Pressure Position [Right Arm] 02 Sat by Pulse Oximetry 99 99 100 Oxygen Delivery Method Oxygen Flow Rate (LPM) 12/27/20 19:00 12/27/20 19:31 12/27/20 20:08 Temperature 98.3 F Temperature Source Oral Pulse Rate 61 57 L 63 Pulse Rate [Left Radial] Respiratory Rate 16 16 16 Blood Pressure 119/48 L 108/41 L 130/52 L Blood Pressure [Right Arm] Blood Pressure Mean 71 71 Blood Pressure Mean [Right Arm] Blood Pressure Source Automatic Cuff Blood Pressure Source [Right Arm] Blood Pressure Position Sitting Blood Pressure Position [Right Arm] 02 Sat by Pulse Oximetry 100 100 Oxygen Delivery Method Nasal Cannula Oxygen Flow Rate (LPM) 3 - Lab Data Lab Results 12/27/20 16:10: WBC 11.6 H, RBC 3.17 L, Hgb 8.9 L, Hct 30.1 L, MCV 94.7, MCH 27.9, MCHC 29.4 L, RDW 16.1, Plt Count 429 H, MPV 11.3 H, Neut % (Auto) 79.1, Lymph % (Auto) 15.3, [place] % (Auto) 4.2, Eos % (Auto) 0.7, Baso % (Auto) 0.6, Neut # (Auto) 9.2 H, Lymph # (Auto) 1.8, [place] # (Auto) 0.5, Eos # (Auto) 0.1, Baso # (Auto) 0.1 12/27/20 16:10: Sodium 137, Potassium 4.4, Chloride 104, Carbon Dioxide 26, Anion Gap 11.4, BUN 19 H, Creatinine 1.80 H, Estimated Creat Clear 24, Estimated GFR 27 L, Est GFR ( Amer) 33 L, Glucose 96, Calcium 9.2, Total Bilirubin 0.2, AST 101 H, ALT 40, Alkaline Phosphatase 93, Total Protein 5.9 L, Albumin 2.8 L, Globulin 3.1, Albumin/Globulin Ratio 0.9 L 12/27/20 16:10: NT-Pro-B Natriuret Pep 7530 H 12/27/20 17:00: Urine Color Yellow, Urine Appearance Cloudy, Urine pH 5.5, Ur Specific [place] 1.020, Urine Protein Negative, Urine Glucose (UA) Negative, Urine Ketones Negative, Urine Blood 1+, Urine Nitrate Negative, Urine Bilirubin Negative, Urine Urobilinogen 0.2, Ur Leukocyte Esterase 2+ A, Urine RBC 3-5, Urine WBC 5-10, Ur Squamous Epith Cells None, Urine Bacteria Trace Result diagrams: 12/27/20 16:10 12/27/20 16:10 Orders (Tests/Meds): ORDERS Category Date Time Status Urine Culture Stat Micro 12/27/20 17:00
[2020-12-27 17:17] LABS: Microscopic, Urine URINE MICROSCOPIC (MICROSCOPIC)
[2020-12-27 17:19] LABS: Appearance,Urine CLOUDY (Clear); Bilirubin,Urine Negative (Negative); Blood, Urine 1+ (Negative); Color,Urine YELLOW (Yellow); Glucose,Urine (UA) Negative (Negative); Ketones,Urine Negative (Negative); Leukocyte Esterase,Urine 2+ (Negative); Nitrate,Urine Negative (Negative); PH,Urine 5.5 (5.0-8.5); Protein,Urine Negative (Negative); Urobilinogen,Urine 0.2 EU/dl (0.2)
[2020-12-27 17:23] LABS: Basophils # 0.1 K/mm3 (0-0.2); Basophils % 0.6 % (0.1-2.0); Eosinophils # 0.1 K/mm3 (0.0-0.4); Eosinophils % 0.7 % (0.1-12.0); Hematocrit 30.1 % (37.0-47.0); Hemoglobin 8.9 g/dL (12.2-16.2); Lymphocytes # 1.8 K/mm3 (0.7-4.5); Lymphocytes % 15.3 % (10-50); Mean Corpuscular HGB Conc 29.4 g/dL (31.8-35.4); Mean Corpuscular Hemoglobin 27.9 pg (27.0-31.2); Mean Corpuscular Volume 94.7 fl (81-99); Mean Platelet Volume 11.3 fl (7.4-10.4); Monocytes # 0.5 K/mm3 (0.1-1.0); Monocytes % 4.2 % (1.7-9.3); Neutrophils # 9.2 K/mm3 (1.8-7.8); Neutrophils % 79.1 % (37.0-80.0); Platelet Count 429 K/mm3 (142-424); Red Blood Count 3.17 M/mm3 (4.20-5.40); Red Cell Distribution Width 16.1 % (11.5-17.5); White Blood Count 11.6 K/mm3 (4.8-10.8)
[2020-12-27 17:24] LABS: Chloride 104 mmol/L (98-107); Potassium 4.4 mmoL/L (3.5-5.1); Sodium 137 mmol/L (136-145)
[2020-12-27 17:26] LABS: Alanine Aminotransferase 40 U/L (12-78); Alkaline Phosphatase 93 U/L (38-126); Aspartate Amino Transferase 101 U/L (14-36); Bilirubin,Total 0.2 mg/dl (0.2-1.3); Blood Urea Nitrogen 19 mg/dl (7-17); Creatinine Clearance Estimated 24 mL/min (50-200); Estimated Glomerular Filt Rate 27 ml/min (>60); GFR (African American) 33 ML/MIN (>60)
[2020-12-27 17:27] LABS: Albumin Level 2.8 g/dl (3.5-5.0); Albumin/Globulin Ratio 0.9 (1.1-1.8); Anion Gap 11.4 mEq/L (5-15); Calcium 9.2 mg/dl (8.4-10.2); Carbon Dioxide 26 mmol/L (22.0-30.0); Globulin 3.1 g/dL (1.3-3.2); Glucose 96 mg/dl (74-100); Total Protein,Serum 5.9 g/dl (6.3-8.2)
[2020-12-27 17:36] LABS: NT Pro Brain Natriuretic Pep. 7530 pg/mL (0-450)
[2020-12-27 17:50] LABS: Bacteria,Urine Trace /lpf
--- NOTE | 2020-12-27 18:26 | PC.NURSE ---
Pt returned from rad
== END 2020-12-27 20:10 | disposition home or self-care (01) ==
PROVIDERS: Emergency Provider Emergency Medicine; PCP Family Medicine
DX: N30.00 Acute cystitis without hematuria (principal); N18.9 Chronic kidney disease, unspecified; E03.9 Hypothyroidism, unspecified; I48.91 Unspecified atrial fibrillation; Z79.899 Other long term (current) drug therapy; R06.02 Shortness of breath
CPT/HCPCS: 71045; 74176; 80053; 81001; 83880; 85025; 87086; 93005; 99283

== ENCOUNTER → 2021-01-05 16:43 | Outpatient (CLI) | payer MEDICARE, SELFPAY ==
[2021-01-06 08:53] VITALS: BMI 22.5
[2021-01-06 11:05] LABS: Hematocrit 30.7 % (37.0-47.0); Hemoglobin 8.6 g/dL (12.2-16.2)
== END ==
PROVIDERS: Visit Provider Family Medicine
DX: D50.0 Iron deficiency anemia secondary to blood loss (chronic) (principal)
CPT/HCPCS: 36415; 85014; 85018; 86850

== ENCOUNTER 2021-01-07 08:45 | Outpatient (CLI) | payer MEDICARE, SELFPAY ==
[2021-01-07] VITALS (20 sets, daily range): BP systolic 85–122; BP diastolic 35–60; PULSE 51–59; RESP 16–18; TEMP 35.8–36.2; O2SAT 98–99; BMI 22.5
[2021-01-07 15:41] LABS: Hematocrit 37.5 % (37.0-47.0); Hemoglobin 11.4 g/dL (12.2-16.2)
== END 2021-01-07 15:35 | disposition home or self-care (01) ==
LOC: INF 08:46
PROVIDERS: PCP Family Medicine; Visit Provider Family Medicine
DX: D50.0 Iron deficiency anemia secondary to blood loss (chronic) (principal)
CPT/HCPCS: 36430; 85014; 85018; P9016

== ENCOUNTER 2021-02-15 13:16 | Inpatient (IN) | payer MEDICARE, SELFPAY ==
--- NOTE | 2021-02-15 13:28 | XR_ITS ---
PROCEDURE: XR CHEST PORTABLE CLINICAL HISTORY: copd with weakness COMPARISON: CR XR CHEST 2V from 07/28/[address] CHEST WO CON from 10/23/2020 CR XR CHEST AP from 10/23/2020 CR XR CHEST PORTABLE from 12/27/2020 FINDINGS: Borderline cardiomegaly. There is mild patient rotation. COPD and chronic changes. No lobar consolidation or collapse. No acute bony abnormalities. IMPRESSION: COPD changes with borderline cardiomegaly. No change with no acute finding. Dictated by: Dmitry Martinez MD 02/15/2021 16:28 Dmitry Martinez MD in [facility] 02/15/2021 16:28
--- NOTE | 2021-02-15 13:33 | PC.NURSE ---
Pt arrived to the floor at this time
[2021-02-15 13:47] VITALS: BP 125/58; PULSE 64; RESP 20; TEMP 37; O2SAT 100; BMI 19.2
--- NOTE | 2021-02-15 14:03 | XR_ITS ---
PROCEDURE: XR FOOT WT BEARING LT 3V CLINICAL INDICATION: Right heel wound COMPARISON: No exams were available for comparison FINDINGS: No fracture or dislocation. No lytic or blastic change. There is normal mineralization. The joint spaces are well-preserved. No significant degenerative/arthritic changes. No erosive changes evident. Other findings:There is flexion of the 1st through 4th toes IMPRESSION: No acute findings. Dictated by: Dmitry Martinez MD 02/15/2021 16:25 Dmitry Martinez MD in [facility] 02/15/2021 16:25
--- NOTE | 2021-02-15 14:03 | XR_ITS ---
PROCEDURE: XR FOOT WT BEARING RT 3V CLINICAL INDICATION: Right heel wound COMPARISON: No exams were available for comparison FINDINGS: No fracture or dislocation. No lytic or blastic change. There is normal mineralization. The joint spaces are well-preserved. No significant degenerative/arthritic changes. No erosive changes evident. Other findings:There is flexion of the 3rd through 5th toes IMPRESSION: No acute findings. Dictated by: Dmitry Martinez MD 02/15/2021 16:23 Dmitry Martinez MD in [facility] 02/15/2021 16:23
[2021-02-15 14:23] LABS: Coronavirus 19, PCR Not Detected (NotDetected); Influenza A, PCR Not Detected (NotDetected); Influenza B, PCR Not Detected (NotDetected)
[2021-02-15 14:48] LABS: C-Reactive Protein 62.5 mg/L (0-4)
[2021-02-15 14:49] LABS: Erythrocyte Sedimentation Rate 48 mm/hr (0-30)
[2021-02-15 14:54] LABS: Basophils # 0.1 K/mm3 (0-0.2); Basophils % 0.5 % (0.1-2.0); Eosinophils # 0.1 K/mm3 (0.0-0.4); Eosinophils % 0.9 % (0.1-12.0); Hematocrit 38.4 % (37.0-47.0); Hemoglobin 11.7 g/dL (12.2-16.2); Lymphocytes # 1.6 K/mm3 (0.7-4.5); Lymphocytes % 12.3 % (10-50); Mean Corpuscular HGB Conc 30.4 g/dL (31.8-35.4); Mean Corpuscular Hemoglobin 27.7 pg (27.0-31.2); Mean Corpuscular Volume 91.2 fl (81-99); Mean Platelet Volume 11.5 fl (7.4-10.4); Monocytes # 0.6 K/mm3 (0.1-1.0); Monocytes % 4.5 % (1.7-9.3); Neutrophils # 10.4 K/mm3 (1.8-7.8); Neutrophils % 81.7 % (37.0-80.0); Platelet Count 348 K/mm3 (142-424); Red Blood Count 4.21 M/mm3 (4.20-5.40); Red Cell Distribution Width 18.5 % (11.5-17.5); White Blood Count 12.7 K/mm3 (4.8-10.8)
--- NOTE | 2021-02-15 15:08 | PC.WOUNDNOTE ---
unstageable ulceration noted to r heel. picture per rodger holliday
--- NOTE | 2021-02-15 15:09 | PC.WOUNDNOTE ---
Stage 2 to coccyx/ bilateral buttock pictures per rodger holliday
--- NOTE | 2021-02-15 15:16 | HMH.PHAINT ---
verified home medication list using list from [facility] and pt family interview
--- NOTE | 2021-02-15 15:17 | HMH.PHAVTE ---
[facility] VTE Monitoring - Patient Demographics Admission date: 02/15/21 Report Date: 02/15/21 Time: 15:17 Allergies/Adverse Reactions: Patient Allergies progesterone Adverse Reaction (Severe, Verified 12/06/20 15:23) Height: 1.57 m Weight: 47.627 kg - VTE Risk Labs: VTE Related Lab Results Hgb 11.7 g/dL (12.2-16.2) L 02/15/21 14:15 Hct 38.4 % (37.0-47.0) 02/15/21 14:15 Plt Count 348 K/mm3 (142-424) 02/15/21 14:15 Was VTE Risk Assessment Performed: Yes VTE Score: 5 VTE Risk Level: Low Risk Clinical Trial Participant: No - Prophylaxis VTE Prophylaxis Ordered?: Yes Types of VTE Prophylaxis: TEDS Knee High
--- NOTE | 2021-02-15 15:26 | US_ITS ---
APPROVED REPORT Exam Type: Ankle to Brachial Index Indications Non-healing Ulcer: Right Risk Factors Hypertension Hyperlipidemia Pressures/Indices Right Indices Left Indices Brachial 129.00 mmHg Brachial 124.00 mmHg Low Thigh 117.00 mmHg 0.91 Low Thigh 137.00 mmHg 1.06 Calf 152.00 mmHg 1.18 Calf 141.00 mmHg 1.09 Ankle(PT) 151.00 mmHg 1.17 Ankle(PT) 0.00 mmHg 0.00 Ankle(DP) 103.00 mmHg 0.80 Ankle(DP) 142.00 mmHg 1.10 Digit 58.00 mmHg 0.45 Digit 114.00 mmHg 0.88 Findings RT CAMILA=1.17 LT CAMILA=1.10 RT TPI 0.45 LT TPI=0.88 Diminshed pulses bilaterally. Aftrial fibrilllation skews waveforms with irregularity. Conclusion RT CAMILA=1.17 LT CAMILA=1.10 RT TPI 0.45 LT TPI=0.88 Normal CAMILA's Low right TBI suggesting small vessel disease Diminshed pulses bilaterally. Aftrial fibrilllation skews waveforms with irregularity. Electronically signed by : Dmitry Martinez MD 02/16/2021 16:39:48
[2021-02-15 15:54] VITALS: BP 104/37; PULSE 58; RESP 19; TEMP 36.6; O2SAT 100
[2021-02-15 15:59] LABS: Microscopic, Urine URINE MICROSCOPIC (MICROSCOPIC)
[2021-02-15 16:04] LABS: Appearance,Urine TURBID (Clear); Blood, Urine 3+ (Negative); Color,Urine BROWN (Yellow); Glucose,Urine (UA) Negative (Negative); Ketones,Urine TRACE (Negative); Leukocyte Esterase,Urine 3+ (Negative); Nitrate,Urine Negative (Negative); Protein,Urine 1+ (Negative); Urobilinogen,Urine 0.2 EU/dl (0.2)
--- NOTE | 2021-02-15 16:21 | HMH.HP ---
*Admission Date: 02/15/21 *Chief complaint: weakness; blood in urine *History of present illness: Ms. Lorrie Bedoya is a 75-year-old female with a history of congestive heart failure, diastolic heart failure, pulmonary hypertension, aortic stenosis, hypertension, COPD requiring continuous oxygen., Chronic kidney disease, thyroid issues, arthritis, history of breast cancer, depression, seizures, anemia, and colon cancer. She presented to the office of [facility] due to hematuria and blood in her stool. She presents with her son in attendance who states that she has had altered mental status. He notes that she has not been eating or drinking much for the past month. She does get out of bed but basically has to be assisted with walking and only sits in a chair. She has developed a wound on the right heel which he has just recently noticed. Patient was seen at this year and diagnosed with colon cancer. With reevaluation by surgeons in July 2020 she was felt to be too weak for surgery. Thus she saw oncology, Dr. Elaine who recommended chemotherapy which was initiated. She was unable to totally complete the course due to progressive weakness. Patient presents on oxygen. She denies shortness of breath. She denies chest pain. She is sometimes nauseated. She denies any cough, sore throat, or fever. With her debilitated state, dehydration, hematuria, with history of colon cancer she will be admitted for further evaluation and treatment. [facility] History Medical History: Reports:: Atherosclerotic Heart Disease, Atrial Fibrillation, Cancer (COLON CANCER), Carotid Stenosis, Congestive Heart Failure, Chronic Obstructive Pulmonary Disease (COPD), Coronary Artery Disease, Depression, Heart Murmur, Home Oxygen, Hyperlipidemia, Hypertension, Lung Disease, Renal Disease, Seizures, Urinary Tract Infection, Valvular Heart Disease Denies:: Diabetes Mellitus Type 1, Diabetes Mellitus Type 2, MRSA *Have you ever received a pneumonia vaccine?: Yes *Have you received a flu vaccine this season?: Yes Other Medical History: Reports: Anemia, Arthritis, Cataracts, Hoarseness, Hypothyroidism, Thyroid Disease Laterality Cases: Right: Mastectomy Other Surgeries: Yes: No Previous Surgery, Cancer Surgery, Cardiac Catheterization, Colonoscopy, Coronary Stent Amputation: No Fractures: Yes (lt arm, rt wrist, PELVIC FX) - *Social History Last grade of school completed: High school graduate Smoking Status: Former smoker Tobacco Type: e-cigarettes #Yrs smoked (if former smoker): 40 Alcohol Intake: never Substance Use Type: denies use *Occupational Status:: retired Housing: house Household Members: family *Travel in the last 8 weeks: None - Psychiatric History Pschychiatric History:: Reports:: Depression Family Hx:: Cancer, Hypertension Review of Systems - Constitutional Reports fatigue, Reports lack of energy, Reports weight loss, Denies fever(s) - Eyes Reports change in vision Comments: Has macular degeneration for which she gets periodic shots. She has not been able to have an injection for a while. - ENT Reports dizziness, Reports bad breath, Denies ear pain, Denies sore throat - *Cardiovascular Reports shortness of breath, Denies chest pain - *Respiratory Reports shortness of breath, Denies chest congestion - *Gastrointestinal Reports bright, red blood in stools, Reports nausea, Denies abdominal pain, Denies difficulty swallowing - *Genitourinary Reports blood in urine Comments: On presentation patient has Mcdonald in place. Hematuria noted. - *Musculoskeletal Reports abnormal walking, Reports muscle weakness - *Neurologic Reports confusion, Reports unsteadiness Meds Home Medications Medication Instructions Recorded Confirmed Type levothyroxine 88 mcg tablet 88 mcg PO DAILY 04/24/19 02/15/21 History mecobalamin (vitamin B12) 1,000 1,000 mcg PO DAILY 04/24/19 02/15/21 History mcg chewable tablet sertraline 100 mg tablet
[2021-02-15 16:39] LABS: Bilirubin,Urine 1+ (Negative)
[2021-02-15 16:53] LABS: RBC,Urine TNTC #/hpf (0-3); Squamous Epithelial Cell,Urine Occasional #/hpf (0-5); WBC,Urine TNTC #/hpf (0-3)
[2021-02-15 16:54] LABS: Bacteria,Urine 1+ /lpf
--- NOTE | 2021-02-15 17:50 | HMH.ORTHOCON ---
*Admission Date: 02/15/21 <Lizzie Kirkpatrick - 02/15/21 18:22> *Reason for consult:: Right heel wound <Lizzie Kirkpatrick - 02/15/21 18:22> *History of present illness: *Admission Date: 02/15/21 *Chief complaint: weakness; blood in urine *History of present illness: Ms. Lorrie Bedoya is a 75-year-old female with a history of congestive heart failure, diastolic heart failure, pulmonary hypertension, aortic stenosis, hypertension, COPD requiring continuous oxygen., Chronic kidney disease, thyroid issues, arthritis, history of breast cancer, depression, seizures, anemia, and colon cancer. She presented to the office of [facility] due to hematuria and blood in her stool. She presents with her son in attendance who states that she has had altered mental status. He notes that she has not been eating or drinking much for the past month. She does get out of bed but basically has to be assisted with walking and only sits in a chair. She has developed a wound on the right heel which he has just recently noticed. Patient was seen at this year and diagnosed with colon cancer. With reevaluation by surgeons in July 2020 she was felt to be too weak for surgery. Thus she saw oncology, Dr. Elaine who recommended chemotherapy which was initiated. She was unable to totally complete the course due to progressive weakness. Patient presents on oxygen. She denies shortness of breath. She denies chest pain. She is sometimes nauseated. She denies any cough, sore throat, or fever. With her debilitated state, dehydration, hematuria, with history of colon cancer she will be admitted for further evaluation and treatment. *PODIATRY CONSULT FOR RIGHT HEEL WOUND: Patient is a 75-years old female who was admitted today for weakness and blood in urine. PCP team consulted podiatry for right heel wound management. Patient was resting in bed. Alert and oriented. No acute distress noted. Patient assessment findings: right heel with erythema and eschar noted to medial heel. Decreased right sided dorsalis pedis and posterior tibial pulses. Excess dry skin noted bilateraly. Nail fungus noted to toes nails. CAMILA ordered and obtained. Discussed with patient treatment plan for right heel wound. Patient does not require surgical intervention at this time. We will treat conservatively with santyl ointment to remove damage tissue from patient right heel. <CasimiroLizzie 02/15/21 19:08> [facility] History I have reviewed the patient's past medical history: Yes [facility]> Medical History: Reports:: Atherosclerotic Heart Disease, Atrial Fibrillation, Cancer (COLON CANCER), Carotid Stenosis, Congestive Heart Failure, Chronic Obstructive Pulmonary Disease (COPD), Coronary Artery Disease, Depression, Heart Murmur, Home Oxygen, Hyperlipidemia, Hypertension, Lung Disease, Pulmonary Embolism, Renal Disease, Seizures, Urinary Tract Infection, Valvular Heart Disease Denies:: Diabetes Mellitus Type 1, Diabetes Mellitus Type 2, MRSA [facility] 18:22> *Have you ever received a pneumonia vaccine?: Yes [facility]/15/21 18:22> *Have you received a flu vaccine this season?: Yes [facility]/15/21 18:22> Other Medical History: Reports: Anemia, Arthritis, Cataracts, Hoarseness, Hypothyroidism, Thyroid Disease <[facility] 02/15/21 18:22> Laterality Cases: Right: Mastectomy [facility] 02/15/21 18:22> Other Surgeries: Yes: No Previous Surgery, Cancer Surgery, Cardiac Catheterization, Colonoscopy, Coronary Stent <[facility] 02/15/21 18:22> Amputation: No <[facility] 02/15/21 18:22> Fractures: Yes (lt arm, rt wrist, PELVIC FX) <[facility] 02/15/21 18:22> - *Social History Last grade of school completed: High school graduate <[facility] 02/15/21 18:22> Smoking Status: Former smoker <[facility] 02/15/21 18:22> Tobacco Type: e-cigarettes <[facility] 02/15/21 18:22> #Yrs smoked (
[2021-02-15 18:07] LABS: Thyroid Stimulating Hormone 7.47 uIU/mL (0.465-4.68)
[2021-02-15 20:00] VITALS: BP 113/39; PULSE 54; RESP 14; TEMP 36.6; O2SAT 100
[2021-02-15 23:18] VITALS: O2SAT 100
[2021-02-16] VITALS: BP 102/35; PULSE 56; RESP 14; TEMP 36.5; O2SAT 100
[2021-02-16 04:00] VITALS: BP 106/41; PULSE 57; RESP 17; TEMP 36.6; O2SAT 99
[2021-02-16 05:27] VITALS: BMI 20.7
[2021-02-16 06:51] LABS: Basophils # 0.1 K/mm3 (0-0.2); Eosinophils # 0.2 K/mm3 (0.0-0.4); Monocytes # 0.6 K/mm3 (0.1-1.0); Monocytes % 5.6 % (1.7-9.3)
[2021-02-16 07:16] LABS: Basophils % 0.4 % (0.1-2.0); Eosinophils % 2.1 % (0.1-12.0); Hematocrit 32.3 % (37.0-47.0); Lymphocytes # 2.3 K/mm3 (0.7-4.5); Lymphocytes % 20.8 % (10-50); Mean Corpuscular HGB Conc 30.9 g/dL (31.8-35.4); Mean Corpuscular Hemoglobin 28.2 pg (27.0-31.2); Mean Corpuscular Volume 91.4 fl (81-99); Mean Platelet Volume 12.3 fl (7.4-10.4); Neutrophils # 7.8 K/mm3 (1.8-7.8); Neutrophils % 71.1 % (37.0-80.0); Platelet Count 287 K/mm3 (142-424); Red Blood Count 3.53 M/mm3 (4.20-5.40); Red Cell Distribution Width 18.5 % (11.5-17.5); White Blood Count 10.9 K/mm3 (4.8-10.8)
[2021-02-16 07:36] VITALS: BP 88/67; PULSE 58; RESP 18; TEMP 36.8; O2SAT 100
--- NOTE | 2021-02-16 08:12 | HMH.ORTHPN ---
Subjective Date: 02/16/21 <Lizzie Kirkpatrick - 02/16/21 08:25> Time: 08:00 <Lizzie Kirkpatrick - 02/16/21 08:25> Interval history: All orders per Dr. Benavides. <Brie Benavides - 02/16/21 17:45> Patient siting up in bed eating breakfast. Alert and Oriented x3. No acute distress noted. Right heel wound dressing changed. Site cleaned with betadine , santyl ointment applied, covered with 4x4, kirlex, and rd wrap. <Lizzie Kirkpatrick - 02/16/21 09:23> PN: Obj Ex Vital signs: Temp Pulse Resp BP Pulse Ox 97.7 F 61 17 105/43 L 100 02/16/21 15:06 02/16/21 15:06 02/16/21 15:06 02/16/21 15:06 02/16/21 15:06 <Brie Benavides - 02/16/21 17:45> Temp Pulse Resp BP Pulse Ox 98.2 F 58 L 18 88/67 L 100 02/16/21 07:36 02/16/21 07:36 02/16/21 07:36 02/16/21 07:36 02/16/21 07:36 <Lizzie Kirkpatrick - 02/16/21 08:25> - Constitutional no acute distress <Lizzie Kirkpatrick - 02/16/21 09:23> - Routine HEENT Exam Head: Present: normocephalic <Lizzie Kirkpatrick - 02/16/21 09:23> Eye: Present: EOMI <Lizzie Kirkpatrick - 02/16/21 09:23> ENT: Present: mucous membranes moist <Lizzie Kirkpatrick - 02/16/21 09:23> - Routine Neck Exam Present: trachea midline <Lizzie Kirkpatrick - 02/16/21 09:23> - Routine Respiratory Exam Absent: accessory muscle use, respiratory distress <Lizzie Kirkpatrick - 02/16/21 09:23> - Routine Cardiovascular Exam Present: RRR, irregular rhythm (atrial fibrillation) <Lizzie Kirkpatrick - 02/16/21 09:23> - Routine Abdominal Exam Present: soft <[facility] 02/16/21 09:23> - Routine Extremities Exam Present: pulses intact, normal capillary refill. Absent: calf tenderness <[facility] 02/16/21 09:23> - Detailed Lower Extremity Exam Foot/Toes: Right erythema (right heel), Right onychomycosis (toe nails), Right tenderness (right heel) <[facility] 02/16/21 09:23> Bottom foot image: 1 - 1 - Right medial heel ulcer with dark eschar in the center with erythema surrounding the borders of the wound. There is no drainage noted when compressed. No malodor noted. No deep debridement was performed due to weakly palpable pedal pulses. Area measured 4.3 x 3.0 x 0 cm. Area was cleaned with Betadine and then dressed with Santyl, dry 4 x 4, Kerlix and Rd wrap. There will be no surgical debridement necessary for this wound at this time. <[facility] 02/16/21 09:23> - Routine Back/Spine/Pelvis Exam Back/Spine: Present: full ROM [facility] 09[facility]> - Routine Skin Exam Present: erythema, dry, wounds <[facility] 02/16/21 09:23> - Routine Neurological Exam Present: oriented X3 <[facility] 02/16/21 09:23> - Routine Psychiatric Exam Present: normal affect, cooperative <[facility] 02/16/21 09:23> Progress Note: A&P (1) Wound of foot Status: Acute (2) Colon cancer Status: Acute (3) Cystitis Status: Acute (4) Depression with anxiety Status: Chronic (5) History of seizure Status: Acute (6) Hypothyroidism (acquired) Status: Chronic (7) PAF (paroxysmal atrial fibrillation) Status: Chronic (8) Renal insufficiency Status: Chronic (9) UTI (urinary tract infection) Status: Acute (10) Aortic stenosis Status: Chronic (11) CAD (coronary artery disease) Status: Chronic (12) COPD (chronic obstructive pulmonary disease) Status: Chronic (13) Diastolic dysfunction Status: Chronic (14) HTN (hypertension) Status: Chronic (15) Pulmonary HTN Status: Chronic (16) Encounter for wound care Status: Acute (17) Decreased pulses in feet Status: Acute (18) Onychomycosis Status: Acute (19) Onychodystrophy Status: Acute (20) Keratosis Status: Acute (21) Acquired hammer toe deformity of lesser toe of both feet Status: Acute (22) Heel spur Status: Acute (23) Tot
--- NOTE | 2021-02-16 08:17 | HMH.ACPN2 ---
Internal Medicine - PN: Subj *Date: 02/16/21 *Time: 08:17 Interval history: Patient states she is feeling a little bit better today. She still weak and has some nausea. She is requesting some nausea medicine. She is trying to eat some breakfast this morning. She states she was able to sleep well last night. She denies any pain. Exam Vital signs and Labs for Last 24 Hours: Temp Pulse Resp BP Pulse Ox 98.2 F 58 L 18 88/67 L 100 02/16/21 07:36 02/16/21 07:36 02/16/21 07:36 02/16/21 07:36 02/16/21 07:36 Laboratory Results - last 24 hr 02/15/21 14:03: SARS-CoV-2 (PCR) Not detected, Influenza A Untype (PCR) Not detected, Influenza Type B (PCR) Not detected 02/15/21 14:15: WBC 12.7 H, RBC 4.21, Hgb 11.7 L, Hct 38.4, MCV 91.2, MCH 27.7, MCHC 30.4 L, RDW 18.5 H, Plt Count 348, MPV 11.5 H, Neut % (Auto) 81.7 H, Lymph % (Auto) 12.3, [place] % (Auto) 4.5, Eos % (Auto) 0.9, Baso % (Auto) 0.5, Neut # (Auto) 10.4 H, Lymph # (Auto) 1.6, [place] # (Auto) 0.6, Eos # (Auto) 0.1, Baso # (Auto) 0.1 02/15/21 14:15: Magnesium 2.0 02/15/21 14:15: ESR 48 H 02/15/21 14:15: C-Reactive Protein 62.5 H 02/15/21 14:15: TSH 7.47 H 02/15/21 15:53: Urine Color Brown, Urine Appearance Turbid, Urine pH 6.0, Ur Specific [place] 1.020, Urine Protein 1+, Urine Glucose (UA) Negative, Urine Ketones Trace, Urine Blood 3+, Urine Nitrate Negative, Urine Bilirubin 1+ A, Urine Urobilinogen 0.2, Ur Leukocyte Esterase 3+ A, Urine RBC Tntc, Urine WBC Tntc, Ur Squamous Epith Cells Occasional, Urine Bacteria 1+ 02/16/21 05:28: WBC 10.9 H, RBC 3.53 L, Hgb 10.0 L D, Hct 32.3 L, MCV 91.4, MCH 28.2, MCHC 30.9 L, RDW 18.5 H, Plt Count 287, MPV 12.3 H, Neut % (Auto) 71.1, Lymph % (Auto) 20.8, [place] % (Auto) 5.6, Eos % (Auto) 2.1, Baso % (Auto) 0.4, Neut # (Auto) 7.8, Lymph # (Auto) 2.3, [place] # (Auto) 0.6, Eos # (Auto) 0.2, Baso # (Auto) 0.1 I & O for Last 24 hours: Intake & Output 02/13/21 02/14/21 02/15/21 02/16/21 11:59 11:59 11:59 11:59 Intake Total 600 / 600 Output Total 325 / 325 Balance 275 / 275 Weight 112 lb 8 oz - Constitutional no acute distress - *Routine Respiratory Exam Present: CTA bilaterally - *Routine Cardiovascular Exam Present: RRR - *Routine Abdominal Exam Present: soft, normoactive bowel sounds, tenderness (RUQ) - *Routine Extremities Exam Absent: cyanosis, clubbing, edema Comments: dressing in place on right foot - *Routine Skin Exam Present: warm. Absent: rash - *Routine Neurological Exam Present: alert, oriented X3 Assessment and Plan (1) Wound of foot Status: Acute Category: Medical Code(s): S91.309A - Unspecified open wound, unspecified foot, initial encounter (2) Colon cancer Status: Acute Qualifiers: Qualified Code(s): C18.9 - Malignant neoplasm of colon, unspecified Category: Medical Code(s): C18.9 - Malignant neoplasm of colon, unspecified (3) Cystitis Status: Acute Category: Medical Code(s): N30.90 - Cystitis, unspecified without hematuria (4) Depression with anxiety Status: Chronic Category: Medical Code(s): F41.8 - Other specified anxiety disorders (5) History of seizure Status: Acute Category: Medical Code(s): Z87.898 - Personal history of other specified conditions (6) Hypothyroidism (acquired) Status: Chronic Category: Medical Code(s): E03.9 - Hypothyroidism, unspecified (7) PAF (paroxysmal atrial fibrillation) Status: Chronic Category: Medical Code(s): I48.0 - Paroxysmal atrial fibrillation (8) Renal insufficiency Status: Chronic Category: Medical Code(s): N28.9 - Disorder of kidney and ureter, unspecified (9) UTI (urinary tract infection) Status: Acute Qualifiers: Qualified Code(s): N30.00 - Acute cystitis without hematuria Category: Medical Code(s): N39.0 - Urinary tract infection, site not specified (10) Aortic stenosis Status: Chronic Qualifiers: Qualified Code(s): I35.0 - Nonrheumatic
[2021-02-16 09:05] LABS: Alanine Aminotransferase 129 U/L (12-78); Albumin Level 2.7 g/dl (3.5-5.0); Albumin/Globulin Ratio 0.9 (1.1-1.8); Alkaline Phosphatase 102 U/L (38-126); Anion Gap 4.7 mEq/L (5-15); Aspartate Amino Transferase 299 U/L (14-36); Bilirubin,Total 0.2 mg/dl (0.2-1.3); Blood Urea Nitrogen 25 mg/dl (7-17); Calcium 8.7 mg/dl (8.4-10.2); Carbon Dioxide 31 mmol/L (22.0-30.0); Chloride 99 mmol/L (98-107); Creatinine Clearance Estimated 24 mL/min (50-200); Estimated Glomerular Filt Rate 31 ml/min (>60); GFR (African American) 38 ML/MIN (>60); Globulin 2.9 g/dL (1.3-3.2); Glucose 83 mg/dl (74-100); Sodium 132 mmol/L (136-145); Total Protein,Serum 5.6 g/dl (6.3-8.2)
--- NOTE | 2021-02-16 09:17 | HMH.PTWOUND ---
Rehab Inpt Wound Evaluation Rehab IP Wound Evaluation Start: 02/15/21 15:58 Freq: ONCE Status: Complete Protocol: Document 02/16/21 09:12 [email or web address] (Rec: 02/16/21 09:16 [email or web address] [id number]) Rehab PT Wound Assessment Patient Status Premedicated Prior to Dressing Change No Subjective Subjective Pt is a 75 y/o female admitted to [facility] UTI, anemia, dehydration and hx of colon cancer. Pt has had significant deconditioning and weight loss over the last severeal months. Pt reports she understands she has wounds on her buttocks Wound Left Upper Buttock Wound Type Pressure Ulcer Is This a Chronic Wound Yes Wound Staging Stage II Query Text:Stage I - Unbroken, red skin, no blanching. Stage II - Skin broken, superficial skin loss involving epidermis alone or also dermis. Partial loss of skin layers. Stage III - Pressure area involves epidermis, dermis and subcutaneous tissue, full thickness skin loss. Stage IV - Pressure area involves epidermis, subcutaneous tissue, bone and other supportive tissue. Full thickness skin loss with extensive destruction of underlying tissue and structures. Wound Length (cm) 4 Wound Width (cm) 4 Wound Bed Appearance Beefy Red Surrounding Tissue Appearance [place] Surrounding Tissue Temperature Warm Wound Drainage Description None Drainage Amount None Drainage Odor No Odor Dressing Status Open to Air Primary Dressing Absorbant Pad Comment optifoam pad Wound Debridement Amount of Tissue None Removed Dressing Change Patient Tolerance Tolerated Well Right Upper Buttock Wound Type Pressure Ulcer Is This a Chronic Wound Yes Wound Staging Stage II Query Text:Stage I - Unbroken, red skin, no blanching. Stage II - Skin broken, superficial skin loss involving epidermis alone or also dermis. Partial loss of skin layers. Stage III - Pressure area involves epidermis, dermis and subcutaneous tissue, full thickness skin loss. Stage IV - Pressure area involves epidermis, subcutaneous tissue, bone and other supportive tissue. Full thickness skin loss with extensive fransico
[2021-02-16 09:29] LABS: Potassium 2.7 mmoL/L (3.5-5.1)
--- NOTE | 2021-02-16 09:41 | PC.NURSE ---
Critical lab reported to [facility] office of potassium 2.7
[2021-02-16 10:41] VITALS: BMI 20.7
[2021-02-16 15:06] VITALS: BP 105/43; PULSE 61; RESP 17; TEMP 36.5; O2SAT 100
--- NOTE | 2021-02-16 16:39 | PC.NURSE ---
Spoke with family concerning cluster of moles on right chest. Moles of variant colors and textures. Family stated they have already been checked by [facility] PCP
[2021-02-16 19:41] VITALS: BP 104/39; PULSE 58; RESP 17; TEMP 36.6; O2SAT 99
[2021-02-17 04:00] VITALS: BP 122/42; PULSE 61; RESP 16; TEMP 36.6; O2SAT 96
[2021-02-17 04:15] VITALS: BMI 20.7
[2021-02-17 06:55] LABS: Basophils % 0.2 % (0.1-2.0); Eosinophils # 0.2 K/mm3 (0.0-0.4); Eosinophils % 1.9 % (0.1-12.0); Hematocrit 29.4 % (37.0-47.0); Hemoglobin 9.2 g/dL (12.2-16.2); Lymphocytes # 1.6 K/mm3 (0.7-4.5); Lymphocytes % 17.7 % (10-50); Mean Corpuscular HGB Conc 31.4 g/dL (31.8-35.4); Mean Corpuscular Hemoglobin 28.6 pg (27.0-31.2); Mean Corpuscular Volume 91.2 fl (81-99); Mean Platelet Volume 11.6 fl (7.4-10.4); Monocytes # 0.6 K/mm3 (0.1-1.0); Monocytes % 6.9 % (1.7-9.3); Neutrophils # 6.6 K/mm3 (1.8-7.8); Neutrophils % 73.3 % (37.0-80.0); Platelet Count 234 K/mm3 (142-424); Red Blood Count 3.23 M/mm3 (4.20-5.40); Red Cell Distribution Width 18.5 % (11.5-17.5)
[2021-02-17 06:59] LABS: Alanine Aminotransferase 107 U/L (12-78); Albumin Level 2.3 g/dl (3.5-5.0); Albumin/Globulin Ratio 0.9 (1.1-1.8); Alkaline Phosphatase 89 U/L (38-126); Anion Gap 2.9 mEq/L (5-15); Aspartate Amino Transferase 245 U/L (14-36); Blood Urea Nitrogen 19 mg/dl (7-17); Calcium 8.6 mg/dl (8.4-10.2); Carbon Dioxide 29 mmol/L (22.0-30.0); Chloride 104 mmol/L (98-107); Creatinine Clearance Estimated 29 mL/min (50-200); Estimated Glomerular Filt Rate 40 ml/min (>60); GFR (African American) 48 ML/MIN (>60); Globulin 2.7 g/dL (1.3-3.2); Glucose 83 mg/dl (74-100); Sodium 133 mmol/L (136-145)
[2021-02-17 07:04] LABS: C-Reactive Protein 43.5 mg/L (0-4)
[2021-02-17 07:27] LABS: Erythrocyte Sedimentation Rate 38 mm/hr (0-30)
[2021-02-17 07:39] LABS: Bilirubin,Total 0.1 mg/dl (0.2-1.3); Potassium 2.9 mmoL/L (3.5-5.1)
[2021-02-17 08:00] VITALS: BP 114/50; PULSE 62; RESP 21; TEMP 36.6; O2SAT 98
--- NOTE | 2021-02-17 08:43 | HMH.ACPN2 ---
Internal Medicine - PN: Subj *Date: 02/17/21 *Time: 08:43 Interval history: Patient does admit to feeling a little bit better this morning. She denies any pain and states she slept off and on throughout the night. She is eating breakfast and is doing well. She has not been out of the bed and continues to feel weak. Exam Vital signs and Labs for Last 24 Hours: Temp Pulse Resp BP Pulse Ox 98 F 61 16 122/42 L 96 02/17/21 04:00 02/17/21 04:00 02/17/21 04:00 02/17/21 04:00 02/17/21 04:00 Laboratory Results - last 24 hr 02/15/21 15:53: Urine Color Brown, Urine Appearance Turbid, Urine pH 6.0, Ur Specific [place] 1.020, Urine Protein 1+, Urine Glucose (UA) Negative, Urine Ketones Trace, Urine Blood 3+, Urine Nitrate Negative, Urine Bilirubin 1+ A, Urine Urobilinogen 0.2, Ur Leukocyte Esterase 3+ A, Urine RBC Tntc, Urine WBC Tntc, Ur Squamous Epith Cells Occasional, Urine Bacteria 1+ 02/16/21 05:28: Sodium 132 L, Potassium 2.7 L*, Chloride 99, Carbon Dioxide 31 H, Anion Gap 4.7 L, BUN 25 H, Creatinine 1.60 H, Estimated Creat Clear 24, Estimated GFR 31 L, Est GFR ( Amer) 38 L, Glucose 83, Calcium 8.7, Total Bilirubin 0.2, AST 299 H, ALT 129 H, Alkaline Phosphatase 102, Total Protein 5.6 L, Albumin 2.7 L, Globulin 2.9, Albumin/Globulin Ratio 0.9 L 02/17/21 05:29: WBC 9.0, RBC 3.23 L, Hgb 9.2 L, Hct 29.4 L, MCV 91.2, MCH 28.6, MCHC 31.4 L, RDW 18.5 H, Plt Count 234, MPV 11.6 H, Neut % (Auto) 73.3, Lymph % (Auto) 17.7, [place] % (Auto) 6.9, Eos % (Auto) 1.9, Baso % (Auto) 0.2, Neut # (Auto) 6.6, Lymph # (Auto) 1.6, [place] # (Auto) 0.6, Eos # (Auto) 0.2, Baso # (Auto) 0.0, ESR 38 H 02/17/21 05:29: Sodium 133 L, Potassium 2.9 L*, Chloride 104, Carbon Dioxide 29, Anion Gap 2.9 L, BUN 19 H, Creatinine 1.30 H, Estimated Creat Clear 29, Estimated GFR 40 L, Est GFR ( Amer) 48 L D, Glucose 83, Calcium 8.6, Total Bilirubin 0.1 L, AST 245 H, ALT 107 H, Alkaline Phosphatase 89, C-Reactive Protein 43.5 H D, Total Protein 5.0 L, Albumin 2.3 L D, Globulin 2.7, Albumin/Globulin Ratio 0.9 L I & O for Last 24 hours: Intake & Output 02/14/21 02/15/21 02/16/21 02/17/21 11:59 11:59 11:59 11:59 Intake Total 600 / 600 360 / 360 Output Total 325 / 325 1210 / 1210 Balance 275 / 275 -850 / -850 Weight 112 lb 6.972 oz 113 lb Microbiology Reports for the Last 24 Hours: Microbiology 02/15/21 15:53 Urine,Clean Catch Urine Culture - Preliminary Gram Negative Rods - Constitutional no acute distress - *Routine Respiratory Exam Present: CTA bilaterally - *Routine Cardiovascular Exam Present: RRR - *Routine Abdominal Exam Present: soft, normoactive bowel sounds. Absent: tenderness - *Routine Extremities Exam Absent: cyanosis, clubbing, edema - *Routine Skin Exam Present: warm. Absent: rash Comments: Right foot with wrap in place - *Routine Neurological Exam Present: alert, oriented X3 Assessment and Plan (1) Wound of foot Status: Acute Category: Medical Code(s): S91.309A - Unspecified open wound, unspecified foot, initial encounter (2) Colon cancer Status: Acute Qualifiers: Colon location: unspecified part of colon Qualified Code(s): C18.9 - Malignant neoplasm of colon, unspecified Category: Medical Code(s): C18.9 - Malignant neoplasm of colon, unspecified (3) Cystitis Status: Acute Category: Medical Code(s): N30.90 - Cystitis, unspecified without hematuria (4) Depression with anxiety Status: Chronic Category: Medical Code(s): F41.8 - Other specified anxiety disorders (5) History of seizure Status: Acute Category: Medical Code(s): Z87.898 - Personal history of other specified conditions (6) Hypothyroidism (acquired) Status: Chronic Category: Medical Code(s): E03.9 - Hypothyroidism, unspecified (7) PAF (paroxysmal atrial fibrillation) Status: Chronic Category: Medical Code(s): I48.0 - Paroxysmal atrial fibrill
--- NOTE | 2021-02-17 09:24 | PC.NURSE ---
Dr. Joel aware of critical K, K KRISTEN Whiting has ordered a run of K per mar.
--- NOTE | 2021-02-17 10:02 | HMH.OTEV ---
OT Inpatient Evaluation Rehab OT IP Evaluation Start: 02/16/21 13:43 Freq: ONCE Status: Complete Protocol: Document 02/17/21 09:45 MELANIE (Rec: 02/17/21 10:02 MELANIE [id number]) Rehab OT IP Assessment Subjective History Ms. Lorrie Bedoya is a 75- year-old female with a history of congestive heart failure, diastolic heart failure, pulmonary hypertension, aortic stenosis, hypertension, COPD requiring continuous oxygen., Chronic kidney disease, thyroid issues, arthritis, history of breast cancer, depression, seizures, anemia, and colon cancer. She presented to the office of [facility] due to hematuria and blood in her stool. She presents with her son in attendance who states that she has had altered mental status. He notes that she has not been eating or drinking much for the past month. She does get out of bed but basically has to be assisted with walking and only sits in a chair. She has developed a wound on the right heel which he has just recently noticed. Patient was seen at this year and diagnosed with colon cancer. With reevaluation by surgeons in July 2020 she was felt to be too weak for surgery. Thus she saw oncology, Dr. Elaine who recommended chemotherapy which was initiated. She was unable to totally complete the course due to progressive weakness. Patient presents on oxygen. She denies shortness of breath . She denies chest pain. She is sometimes nauseated. She denies any cough, sore throat, or fever. With her debilitated state,
--- NOTE | 2021-02-17 10:28 | SW/DCPLANNER ---
Addendum entered by Saumya Whitley 02/18/21 13:48: PATIENT DISCHARGING TO [facility] TODAY... PATIENT WILL BE TRANSPORTED VIA AMBULANCE... Addendum entered by Harper Roberts 02/17/21 13:56: Per Aleida this patient has been accepted to [facility] once medically stable for discharge. I will inform patient/family/ MD today. Discharge date is unknown at this time. Patient will require an additional COVID swab at time of discharge. Addendum entered by Harper Roberts 02/17/21 13:12: Aleida victoria/ [facility] has stated that she is currently reviewing patient information. Original Note: I spoke with this patient/family regarding plans once medically stable for discharge. Patient resides at home with her son and daughter in law. Daughter in law is present during my visit and is recommending short term placement for this patient: patient is agreeable. I spoke with Aleida at [facility]: she does have female beds available. Patient information will be faxed to Aleida this AM. Discharge date is unknown at this time.
--- NOTE | 2021-02-17 10:57 | HMH.PTEV ---
Physical Therapy Evaluation Rehab PT IP Evaluation Start: 02/16/21 13:42 Freq: ONCE Status: Active Protocol: Document 02/17/21 10:32 [email or web address] (Rec: 02/17/21 10:57 [email or web address] [id number]) Subjective/History History History This is the initial evaluation for Lorrie Bedoya. Pt is a 75 y/o female admitted to [facility] for hematuria and blood in her stool. Pt has history of congestive heart failure, diastolic heart failure, pulmonary hypertension, aortic stenosis, hypertension, COPD requiring continuous oxygen, Chronic kidney disease, thyroid issues, arthritis, history of breast cancer, depression, seizures, anemia, and colon cancer. - note done by Shasta Kraus, SPT Subjective Subjective Pt states she lives at home with her son and daughter in law. Pt states her son does everything for her including get her to the bedside commode when needed. Pt staes she does not walk much but she does have a cane, walker, and w/c at home to use when needed . Pt states she lives on the first floor of her sons house. Rehab PT IP Eval Objective Appearance Patient Behavior Appropriate,Cooperative Patient Orientation Place,Name,Birthday Difficulty following instructions none Speech Pattern Clear,Appropriate Ambulation Patient Able to Ambulate No Balance Ability to Arise Unable Sitting Balance Steady, safe Standing Balance Unsteady Dynamic Sitting Balance Ability Fair Dynamic Standing Balance Ability Zero Transfers Chair Transfer Ability Moderate x 2 (50% assist) Sit to Stand Bed Transfer Ability Maximum x 2 (75% assist) Rehab PT IP prob,goals,plan Problems Date of Evaluation: 02/17/21 PT IP Problems Bed Mobility,Transfers,Gait, Balance,Self care,Safety Rehab Potential Rehab Potential Fair Equipment Needs Assistive Devices Rolling / Wheeled Walker, Wheelchair Plan PT Intervention Plan Bed Mobility,Transfers,Gait,
[2021-02-17 15:29] VITALS: BP 113/49; PULSE 62; RESP 18; TEMP 36.7; O2SAT 100
[2021-02-17 19:57] VITALS: BP 122/46; PULSE 60; RESP 14; TEMP 36.1; O2SAT 100
[2021-02-17 20:07] VITALS: O2SAT 100
[2021-02-18 04:00] VITALS: BP 112/47; PULSE 62; RESP 16; TEMP 36.8; O2SAT 98
[2021-02-18 04:33] VITALS: BMI 224.7
[2021-02-18 06:38] LABS: Basophils # 0.1 K/mm3 (0-0.2); Basophils % 0.5 % (0.1-2.0); Eosinophils # 0.2 K/mm3 (0.0-0.4); Eosinophils % 2.5 % (0.1-12.0); Hematocrit 29.4 % (37.0-47.0); Lymphocytes # 1.7 K/mm3 (0.7-4.5); Lymphocytes % 18.8 % (10-50); Mean Corpuscular HGB Conc 30.7 g/dL (31.8-35.4); Mean Corpuscular Hemoglobin 27.9 pg (27.0-31.2); Mean Corpuscular Volume 90.8 fl (81-99); Mean Platelet Volume 11.2 fl (7.4-10.4); Monocytes # 0.6 K/mm3 (0.1-1.0); Monocytes % 6.9 % (1.7-9.3); Neutrophils # 6.2 K/mm3 (1.8-7.8); Neutrophils % 71.2 % (37.0-80.0); Platelet Count 253 K/mm3 (142-424); Red Blood Count 3.24 M/mm3 (4.20-5.40); Red Cell Distribution Width 18.8 % (11.5-17.5); White Blood Count 8.7 K/mm3 (4.8-10.8)
[2021-02-18 06:44] LABS: Chloride 108 mmol/L (98-107); Potassium 3.9 mmoL/L (3.5-5.1); Sodium 136 mmol/L (136-145)
[2021-02-18 06:47] LABS: Anion Gap 7.9 mEq/L (5-15); Blood Urea Nitrogen 16 mg/dl (7-17); Calcium 8.5 mg/dl (8.4-10.2); Carbon Dioxide 24 mmol/L (22.0-30.0); Creatinine Clearance Estimated -32 mL/min (50-200); Estimated Glomerular Filt Rate 44 ml/min (>60); GFR (African American) 53 ML/MIN (>60); Glucose 90 mg/dl (74-100)
[2021-02-18 08:00] VITALS: BP 139/62; PULSE 64; RESP 16; TEMP 36.9; O2SAT 99
--- NOTE | 2021-02-18 08:12 | HMH.ACPN2 ---
Internal Medicine - PN: Subj *Date: 02/18/21 *Time: 08:12 Interval history: Pt is sitting up in bed making an attempt to eat breakfast. She reports she is feeling better but remains weak. She otherwise has no complaint. Exam Vital signs and Labs for Last 24 Hours: Temp Pulse Resp BP Pulse Ox 98.2 F 62 16 112/47 L 98 02/18/21 04:00 02/18/21 04:00 02/18/21 04:00 02/18/21 04:00 02/18/21 04:00 Laboratory Results - last 24 hr 02/18/21 05:38: WBC 8.7, RBC 3.24 L, Hgb 9.0 L, Hct 29.4 L, MCV 90.8, MCH 27.9, MCHC 30.7 L, RDW 18.8 H, Plt Count 253, MPV 11.2 H, Neut % (Auto) 71.2, Lymph % (Auto) 18.8, [place] % (Auto) 6.9, Eos % (Auto) 2.5, Baso % (Auto) 0.5, Neut # (Auto) 6.2, Lymph # (Auto) 1.7, [place] # (Auto) 0.6, Eos # (Auto) 0.2, Baso # (Auto) 0.1 02/18/21 05:38: Sodium 136, Potassium 3.9 D, Chloride 108 H, Carbon Dioxide 24, Anion Gap 7.9, BUN 16, Creatinine 1.20 H, Estimated Creat Clear -32 L, Estimated GFR 44 L, Est GFR ( Amer) 53 L, Glucose 90, Calcium 8.5 I & O for Last 24 hours: Intake & Output 02/15/21 02/16/21 02/17/21 02/18/21 11:59 11:59 11:59 11:59 Intake Total 600 / 600 480 / 480 330 / 330 Output Total 325 / 325 1210 / 1210 600 / 600 Balance 275 / 275 -730 / -730 -270 / -270 Weight 112 lb 6.972 oz 113 lb 113 lb 8 oz - Constitutional no acute distress - *Routine HEENT Exam Head: Present: normocephalic ENT: Present: mucous membranes moist - *Routine Respiratory Exam Absent: respiratory distress Comments: few scattered wheezes with poor inspiratory effort - *Routine Cardiovascular Exam Present: RRR - *Routine Abdominal Exam Present: soft, normoactive bowel sounds. Absent: tenderness, distended, obese - *Routine Extremities Exam Comments: no edema, ISSAC wrap C/D/I to RLE, BELLA hose in place to LLE - *Routine Neurological Exam Present: alert, oriented X3 Assessment and Plan (1) Wound of foot Status: Acute Category: Medical Code(s): S91.309A - Unspecified open wound, unspecified foot, initial encounter (2) Colon cancer Status: Acute Qualifiers: Colon location: unspecified part of colon Qualified Code(s): C18.9 - Malignant neoplasm of colon, unspecified Category: Medical Code(s): C18.9 - Malignant neoplasm of colon, unspecified (3) Cystitis Status: Acute Category: Medical Code(s): N30.90 - Cystitis, unspecified without hematuria (4) Depression with anxiety Status: Chronic Category: Medical Code(s): F41.8 - Other specified anxiety disorders (5) History of seizure Status: Acute Category: Medical Code(s): Z87.898 - Personal history of other specified conditions (6) Hypothyroidism (acquired) Status: Chronic Category: Medical Code(s): E03.9 - Hypothyroidism, unspecified (7) PAF (paroxysmal atrial fibrillation) Status: Chronic Category: Medical Code(s): I48.0 - Paroxysmal atrial fibrillation (8) Renal insufficiency Status: Chronic Category: Medical Code(s): N28.9 - Disorder of kidney and ureter, unspecified (9) UTI (urinary tract infection) Status: Acute Qualifiers: Urinary tract infection type: acute cystitis Hematuria presence: without hematuria Qualified Code(s): N30.00 - Acute cystitis without hematuria Category: Medical Code(s): N39.0 - Urinary tract infection, site not specified (10) Aortic stenosis Status: Chronic Qualifiers: Cardiac valve disease etiology: etiology unspecified Qualified Code(s): I35.0 - Nonrheumatic aortic (valve) stenosis Category: Medical Code(s): I35.0 - Nonrheumatic aortic (valve) stenosis (11) CAD (coronary artery disease) Status: Chronic Qualifiers: Coronary Disease-Associated Artery/Lesion type: [place] artery [place] vs. transplanted heart: [place] heart Associated angina: without angina Qualified Code(s): I25.10 - Atherosclerotic heart disease of [place] coronary artery without angina pectoris Category: Medical Code
[2021-02-18 09:40] LABS: Coronavirus 19, PCR Not Detected (NotDetected); Influenza A, PCR Not Detected (NotDetected); Influenza B, PCR Not Detected (NotDetected)
[2021-02-18 09:45] VITALS: BMI 20.9
--- NOTE | 2021-02-18 11:52 | HMH.DCSUM ---
General - General Admission date:: 02/15/21 Discharge date: 02/18/21 HPI HPI: Ms. Lorrie Bedoya was a 75-year-old female with a history of congestive heart failure, diastolic heart failure, pulmonary hypertension, aortic stenosis, hypertension, COPD requiring continuous oxygen, chronic kidney disease, thyroid issues, arthritis, history of breast cancer, depression, seizures, anemia, and colon cancer. She had presented to the office of [facility] due to hematuria and blood in her stool. She presented with her son in attendance who stated that she had had altered mental status. He noted that she had not been eating or drinking much over the prior month. She would get out of bed but basically had to be assisted with walking and would only sit in a chair. She had developed a wound on the right heel which he had just recently noticed. Patient was seen at earlier this year and diagnosed with colon cancer. With reevaluation by surgeons in July 2020 she was felt to be too weak for surgery. Thus she saw oncology, Dr. Elaine who recommended chemotherapy which was initiated. She was unable to totally complete the course due to progressive weakness. Patient presented on oxygen. She denied shortness of breath. She denied chest pain. She was sometimes nauseated. She denied any cough, sore throat, or fever. With her debilitated state, dehydration, hematuria, with history of colon cancer she was admitted for further evaluation and treatment and ortho was consulted for wound care. Hospital Course Hospital Course: She was seen by ortho who ordered CAMILA which showed normal CAMILA's and low right TPI suggesting small vessel disease. Ortho planned to apply Santyl to right heel wound as it was not felt surgical debridement was necessary. By the following morning, she was feeling a little bit better. She had rested well overnight although she remained weak and nauseated. Urine culture results were pending. Her levothyroxine dose was increased due to elevated TSH. Ortho planned to continue dry sterile dressing changes with Santyl ointment to right heel wound. She continued to improve and received IV replacement for low potassium of 2.9. By the morning of 02/18/21, her potassium had normalized. Her renal function was improving. Her urine culture returned showing growth of pansensitive Klebsiella pneumoniae. She was feeling better and felt to be stable for return to [facility] with prescription for oral cefdinir. Objective Vital signs: Temp Pulse Resp BP Pulse Ox 98.4 F 64 16 139/62 99 02/18/21 08:00 02/18/21 08:00 02/18/21 08:00 02/18/21 08:00 02/18/21 08:00 Results Labs on day of discharge: Labs from last 24 hours 02/18/21 02/18/21 02/18/21 09:30 05:38 05:38 WBC 8.7 RBC 3.24 L Hgb 9.0 L Hct 29.4 L MCV 90.8 MCH 27.9 MCHC 30.7 L RDW 18.8 H Plt Count 253 MPV 11.2 H Neut % (Auto) 71.2 Lymph % (Auto) 18.8 [place] % (Auto) 6.9 Eos % (Auto) 2.5 Baso % (Auto) 0.5 Neut # (Auto) 6.2 Lymph # (Auto) 1.7 [place] # (Auto) 0.6 Eos # (Auto) 0.2 Baso # (Auto) 0.1 Sodium 136 Potassium 3.9 D Chloride 108 H Carbon Dioxide 24 Anion Gap 7.9 BUN 16 Creatinine 1.20 H Estimated Creat Clear -32 L Estimated GFR 44 L Est GFR ( Amer) 53 L Glucose 90 Calcium 8.5 SARS-CoV-2 (PCR) Not detected Influenza A Untype (PCR) Not detected Influenza Type B (PCR) Not detected DS: Diagnosis - Discharge Diagnosis (1) Wound of foot Status: Acute (2) Colon cancer Status: Acute (3) Cystitis Status: Acute (4) Depression with anxiety Status: Chronic (5) History of seizure Status: Acute (6) Hypothyroidism (acquired) Status: Chronic (7) PAF (paroxysmal atrial fibrillation) Status: Chronic (8) Renal insufficiency Status: Chronic (9) UTI (urinary tract infection) St
== END 2021-02-18 13:45 | DRG 690 ==
PROVIDERS: Nurse Practitioner; Nurse Practitioner Family; Admitting Provider Family Medicine; PCP Family Medicine; Visit Provider Family Medicine
DX: N30.00 Acute cystitis without hematuria (principal); C18.9 Malignant neoplasm of colon, unspecified; I50.30 Unspecified diastolic (congestive) heart failure; I13.0 Hypertensive heart and chronic kidney disease with heart failure and stage 1 through stage 4 chronic kidney disease, or unspecified chronic kidney disease; L97.419 Non-pressure chronic ulcer of right heel and midfoot with unspecified severity; I48.0 Paroxysmal atrial fibrillation; Z20.822 Contact with and (suspected) exposure to COVID-19; S91.309A Unspecified open wound, unspecified foot, initial encounter; I27.20 Pulmonary hypertension, unspecified; I35.0 Nonrheumatic aortic (valve) stenosis; J44.9 Chronic obstructive pulmonary disease, unspecified; Z85.3 Personal history of malignant neoplasm of breast; D63.0 Anemia in neoplastic disease; Z99.81 Dependence on supplemental oxygen; N18.9 Chronic kidney disease, unspecified; I65.29 Occlusion and stenosis of unspecified carotid artery; E78.5 Hyperlipidemia, unspecified; E03.9 Hypothyroidism, unspecified; Z95.5 Presence of coronary angioplasty implant and graft; F41.8 Other specified anxiety disorders; R31.9 Hematuria, unspecified; A49.8 Other bacterial infections of unspecified site; L97.519 Non-pressure chronic ulcer of other part of right foot with unspecified severity; E86.0 Dehydration; M19.90 Unspecified osteoarthritis, unspecified site
CPT/HCPCS: 36415; 71045; 73630; 80048; 80053; 81001; 83735; 84443; 85025; 85651; 86140; 87086; 87088; 87186; 93923; 94640; 94760; 94761; 97110; 97162; 97165; 97530; C9803; J2405; U0003; U0005

== ENCOUNTER → 2021-03-06 03:02 | Outpatient (REF) | payer MEDICARE, SELFPAY ==
[2021-03-06 04:28] LABS: Basophils # 0.1 K/mm3 (0-0.2); Basophils % 0.6 % (0.1-2.0); Eosinophils # 0.1 K/mm3 (0.0-0.4); Hematocrit 27.8 % (37.0-47.0); Hemoglobin 8.3 g/dL (12.2-16.2); Lymphocytes # 1.5 K/mm3 (0.7-4.5); Lymphocytes % 11.4 % (10-50); Mean Corpuscular HGB Conc 29.8 g/dL (31.8-35.4); Mean Corpuscular Hemoglobin 28.4 pg (27.0-31.2); Mean Corpuscular Volume 95.3 fl (81-99); Mean Platelet Volume 13.5 fl (7.4-10.4); Monocytes # 0.7 K/mm3 (0.1-1.0); Monocytes % 5.6 % (1.7-9.3); Neutrophils # 10.6 K/mm3 (1.8-7.8); Neutrophils % 81.5 % (37.0-80.0); Platelet Count 296 K/mm3 (142-424); Red Blood Count 2.92 M/mm3 (4.20-5.40)
[2021-03-06 04:54] LABS: Blood Urea Nitrogen 46 mg/dl (7-17); Calcium 8.4 mg/dl (8.4-10.2); Carbon Dioxide 24 mmol/L (22.0-30.0); Chloride 103 mmol/L (98-107); Estimated Glomerular Filt Rate 27 ml/min (>60); GFR (African American) 33 ML/MIN (>60); Glucose 74 mg/dl (74-100); Sodium 132 mmol/L (136-145)
== END ==
LOC: LAB.DROPOF 03:02
PROVIDERS: Visit Provider Family Medicine
DX: C18.9 Malignant neoplasm of colon, unspecified (principal)
CPT/HCPCS: 80048; 85025

== ENCOUNTER 2021-03-10 10:20 | Outpatient (CLI) | payer MEDICARE, SELFPAY ==
[2021-03-10 10:24] VITALS: BMI 26.0
[2021-03-10 11:00] VITALS: BP 102/46; PULSE 72; RESP 20; TEMP 36.9; O2SAT 95
[2021-03-10 11:27] LABS: Hematocrit 28.6 % (37.0-47.0); Hemoglobin 8.4 g/dL (12.2-16.2)
--- NOTE | 2021-03-10 15:07 | PC.NURSE ---
PT WAS BROUGHT IN TODAY FOR BLOOD TRANSFUSION FROM [facility]; ONCE PATIENT ARRIVED LABS WERE CHECKED AND PT DID NOT NEED TO GET BLOOD TRANSFUSION BASED ON HER LABS. MD WAS CALLED AND NO BLOOD GIVEN
--- NOTE | 2021-03-10 15:33 | PC.NURSE ---
03/10/21 1420 staff presented to pt room to provide routine care and repositioning. Explained to pt poc. Pt repositioned to left side and pt checked for a soiled brief. F/C in place, patent and draining to bsd. Provided cath care and pericare and found some dark residue noted towards pt bottom. With assist of 2nd RN Tammie Puente, pt turned to her side and immediately noted a large bedsore-stage 4 noted to the upper buttock/coccyx area. Wound noted approximately the size of a grapefruit, tissue present appears necrotic black with a gee-black drainage noted, a foul odor present. another small wound noted to the size approx quarter sized-only black eschar. pt also appears to have a dark soft tissue area on the left heel still intact and the right heel appears to have a drsg in place from a reported heel bedsore. Report received from [facility] that pt has had these bedsores in place for the past several months-family aware as well. Pericare performed and the same drsg applied dry gauze in the area on sacral bedsore secured by pt's brief. Pt repositioned on her lt side and propped with pillows to provide comfort.
[2021-03-10 19:04] VITALS: BP 122/74; PULSE 68; RESP 20; TEMP 36.9; O2SAT 95
== END 2021-03-10 19:07 | disposition home or self-care (01) ==
LOC: INF 10:21
PROVIDERS: PCP Family Medicine; Visit Provider Family Medicine
DX: D64.9 Anemia, unspecified (principal)
CPT/HCPCS: 85014; 85018; G0463